=== PATIENT | male | born 1975 | race Caucasian/White ===

== ENCOUNTER 2019-08-09 17:37 | Outpatient (CLI) | payer SELFPAY ==
--- NOTE | 2019-08-21 12:11 | SLEEP_ITS ---
DATE OF STUDY: 08/09/2019 HISTORY: The patient is 43 years of age, 64 inches tall, weighs 325 pounds with a BMI of 55.8 kg/m2. This patient gives history of snoring, history of poor quality of sleep, significant daytime sleepiness, reports an Teague sleepiness scale score of 17/24. In addition to morbid obesity, other problems include diabetes that is insulin dependent, nasal congestion, depression, hypertension, and hyperlipidemia. He also has gastroesophageal reflux. This patient underwent an overnight polysomnographic evaluation with standard monitoring. A split-night protocol was used. CMS criteria were used for scoring hypopneas. In the diagnostic study, the sleep summary was as follows: Lights out was 7:15 p.m., lights on 11:26 p.m. Total recording time 251 minutes. Total sleep time 124 minutes with 49.4% sleep efficiency, which is poor. Sleep latency was 2.1 minutes and there was no REM sleep in the diagnostic study. SLEEP STAGES: The patient was awake for 127 minutes. Stage N1 was 17%, N2 83%, and there was absence of stage N3 and stage R sleep. BODY POSITION: The patient was supine 29.8%, non-supine 56.3%. RESPIRATORY EVENTS: Loud snoring was heard. The patient had a total of 4 apneas with index of 1.9. There were 216 hypopneas with index of 105.4, so combined apnea-hypopnea index of 106.4. Events were about equal frequencies in supine as well as in non-supine sleep. AROUSALS: The patient had frequent arousals due to respiratory events as well as spontaneous arousals were also noted. LEG MOVEMENT SUMMARY: There were no periodic limb movements noted. OXYGEN SATURATION: During diagnostic study, the mean saturation was 94%. Lowest saturation was 80%. 11.4 minutes of recording occurred with saturation of 88 or below, so mild intermittent hypoxia was encountered. EKG analysis revealed sinus tachycardia. The average heart rate was 110 beats per minute. Range was 57-139 beats per minute. Because of the severe nature of the obstructive sleep apnea identified in the diagnostic study, the patient was offered CPAP study. The patient used AirFit F-20 full face mask of medium size with heated humidification. TREATMENT SUMMARY: Sleep architecture, total recording time 281 minutes. Total sleep time 167 minutes with 59.5% sleep efficiency. Sleep onset was 6.3 minutes and REM latency was 63.5 minutes. SLEEP STAGES: The patient was awake for 114 minutes. Stage N1 was 8.1%, N2 55.5%, and stage R 36.4%. There were no stage N3. The abundant REM sleep recorded is consistent with improved sleep quality with positive airway pressure. BODY POSITION: The patient was supine 42.9% and non-supine 52.7%. RESPIRATORY EVENTS: During titration, the patient had 53 obstructive apneas along with 47 hypopneas with an apnea-hypopnea index of 50.9. Events were slightly more common during non-REM sleep with a non-REM index of 56.3 as compared to REM index of 41.3. Non-supine events interestingly were more common than supine events. OXYGEN SATURATION: During positive airway pressure titration, the patient's average saturation was 91.2%, lowest saturation was 64%. 35 minutes of record occurred with saturation of 88 or below, so hypoxia was definitely present. EKG analysis during positive airway pressure showed persistent tachycardia. Average heart rate of 104 beats per minute with the range of 84-125 beats per minute. POSTIVIE AIRWAY PRESSURE ANALYSIS: The patient was initially started on a CPAP. Starting at CPAP of 4 was titrated to a level of 4 cm. The patient continued to have many episodes of desaturation as well as hypopneic episodes and at that time, the patient complained of being uncomfortable started hyperventilating. The patient was
== END 2019-08-09 17:38 | disposition home or self-care (01) ==
DX: R06.83 Snoring (principal); G47.33 Obstructive sleep apnea (adult) (pediatric)
CPT/HCPCS: 99199

== ENCOUNTER 2019-08-13 16:00 | Observation (INO) | payer MEDICARE, MEDICAID, SELFPAY ==
--- NOTE | ~2019-08-13 | US_ITS ---
EXAMINATION: US venous doppler [facility] DATE: 08/16/2019 08:55 INDICATION: Calf tenderness. TECHNIQUE: Grayscale ultrasound images without and with compression and Doppler ultrasound images of the bilateral lower extremity veins were obtained. COMPARISON: None. FINDINGS: The visualized portions of right common femoral vein, profunda (deep) femoral vein, femoral vein, pop liteal vein, peroneal veins, posterior tibial veins, and greater saphenous vein outflow are patent. The visualized portions of left common femoral vein, profunda femoral vein, femoral vein, popliteal v ein, peroneal veins, posterior tibial veins, and greater saphenous vein outflow are patent. IMPRESSION: 1. No deep venous thrombosis. Reviewed, dictated and finalized at location A. MING FREIGHT CLERK
--- NOTE | ~2019-08-13 | CT_ITS ---
EXAMINATION:CT chest high resolution wo ri DATE: 08/16/2019 13:29 INDICATION: Diffuse lung disease. TECHNIQUE: Computed tomography (CT) of the chest was performed without intravenous contrast. Automate d exposure control and iterative reconstruction technique were employed. The dose-length product (DLP ) was 923.22 mGy-cm. COMPARISON: Chest CT 08/13/2019, CT abdomen and pelvis 08/01/2019 FINDINGS: There is mosaic attenuation in the lungs, likely small airways disease. There is mild atele ctasis bilaterally. No pleural effusion. The heart size is normal. No pericardial effusion. There are no pathologically enlarged lymph nodes. There is mild chronic anterior wedging of T10 and T11 verteb ral bodies. There is mild thoracic spondylosis. IMPRESSION: 1. Mosaic attenuation in the lungs, likely small airways disease. Reviewed, dictated and finalized at location A. ST FIRE MANAGEMENT OFFICER
--- NOTE | ~2019-08-13 | CT_ITS ---
EXAMINATION: CTA chest PE protocol DATE: 08/13/2019 18:03 DIGITAL SPECIALIST INDICATION: Shortness of breath. Elevated d-dimer. TECHNIQUE: Computed tomographic angiography (CTA) of the chest was performed with 100 mL Omnipaque-35 0 intravenous contrast. The dose-length product was 1155.32 mGy-cm. Maximum intensity projection 3D-r econstructions of the aorta and other arteries were constructed by the technologist on a separate wor kstation. Automated exposure control and iterative reconstruction technique were employed. COMPARISON: Chest x-ray dated 08/13/2019. FINDINGS: Study is significantly limited due to motion artifact. No large central pulmonary embolism. The segmental and subsegmental arteries are not well evaluated due to motion. Cardiomegaly. No signi ficant pleural or pericardial effusion. There is mediastinal lipomatosis. No thoracic lymphadenopathy . There is extensive groundglass opacification of both lungs with areas of interlobular septal thicke anne, likely related to edema, although superimposed pneumonia is not excluded. Mild lower thoracic w edge compression deformities, likely chronic. No acute osseous abnormality. IMPRESSION: 1. No large central pulmonary embolism. Study limited by motion for evaluation of smaller segmental a nd subsegmental pulmonary arteries. 2: Cardiomegaly with extensive groundglass opacification, likely reflecting edema. Superimposed pneu monia not excluded. Reviewed, dictated and finalized at location A. TAL SPECIALIST IMPRESSION: 1. No large central pulmonary embolism. Study limited by motion for evaluation of smaller segmental and subsegmental pulmonary arteries. 2: Cardiomegaly with extensive groundglass opacification, likely reflecting ed lyndon. Superimposed pneumonia not excluded.
--- NOTE | ~2019-08-13 | XR_ITS ---
XR chest 1V portable 08/13/2019 16:42 Indication: Shortness of breath Procedure: AP portable chest Comparison: 09/22/2012 Findings: Cardiomegaly with bilateral perihilar infiltrates. Small right pleural effusion. No pneumot horax. No acute osseous abnormality. Impression: 1: Bilateral perihilar infiltrates with mild peribronchial thickening, suspicious for edema. 2: Cardiomegaly. 3: Small right pleural effusion. Reviewed, dictated and finalized at location A. RNED GOODS SORTER Impression: 1: Bilateral perihilar infiltrates with mild peribronchial thickening, suspicio us for edema. 2: Cardiomegaly. 3: Small right pleural effusion.
[2019-08-13 16:15] VITALS: BP 169/94; PULSE 90; RESP 40; TEMP 36.7; O2SAT 93
--- NOTE | 2019-08-13 16:21 | ECG_ITS ---
Measurements Intervals [place] Rate: 101 P: 39 DC: 168 QRS: -9 QRSD: 94 T: 55 QT: 345 QTc: 448 Interpretive Statements SINUS TACHYCARDIA LOW QRS VOLTAGE IN PRECORDIAL LEADS POOR R WAVE PROGRESSION, ANTERIOR LEADS BASELINE ARTIFACT- I, III BORDERLINE ECG Electronically Signed On 08-14-2019 8:10:47 BOND RUNNER by Leoncio Vargas D.O.
--- NOTE | 2019-08-13 16:27 | ED.SOB ---
HPI - SOB/Dyspnea General Chief Complaint: Shortness of Breath/Dyspnea Stated Complaint: pain all over, trouble breathing Time Seen by Provider: 08/13/19 16:20 Source: patient and RN notes reviewed Mode of arrival: wheelchair History of Present Illness MD elicited complaint: shortness of breath Pertinent past history: diabetes and other ( hypertension sleep apnea) Onset (ago): day(s) ( 2 days) Context: other ( spontaneous) Timing: constant Severity: moderate Exacerbating factors: lying flat and exertion Relieving factors: oxygen and rest Known history of: diabetes and other ( sleep apnea) Associated symptoms: other ( denies chest pain. Denies fever. No abdominal pain. No nausea vomiting.) Treatment prior to arrival: none Related Data Home oxygen amount: none Home Medications Medication Instructions Recorded Confirmed albuterol sulfate 2 puff INHALATION TID PRN 08/13/19 08/13/19 aspirin 81 mg PO DAILY 08/13/19 08/13/19 atorvastatin 10 mg PO HS 08/13/19 08/13/19 furosemide 20 mg PO BID 08/13/19 08/13/19 insulin aspart U-100 [Novolog 20 unit SUBCUT TID 08/13/19 08/13/19 Flexpen U-100 Insulin] insulin glargine [Basaglar KwikPen 60 unit SUBCUT HS 08/13/19 08/13/19 U-100 Insulin] lisinopril 5 mg PO DAILY 08/13/19 08/13/19 metformin 1,000 mg PO BID 08/13/19 08/13/19 omega 2-fpc-mzq-fish oil [Fish Oil] 1 cap PO BID 08/13/19 08/13/19 pantoprazole 40 mg PO DAILY 08/13/19 08/13/19 sertraline 200 mg PO DAILY 08/13/19 08/13/19 Allergies Allergy/AdvReac Type Severity Reaction Status Date / Time NKDA Allergy Mild Uncoded 12/08/10 21:04 Review of Systems Review of Systems: All systems reviewed & are unremarkable except as noted in HPI and below Constitutional: Constitutional: Reports no additional constitutional complaints, Denies chills and Denies fever(s) Eyes: Eyes: Reports no additional eye complaints and Denies change in vision ENT: Denies dizziness, Denies epistaxis and Denies sore throat Cardiovascular: Cardiovascular: Reports no additional cardiovascular complaints, Denies chest pain and Denies radiating jaw, neck or arm pain Respiratory: Respiratory: Reports no additional respiratory complaints and Reports dyspnea Gastrointestinal: Gastrointestinal: Reports no additional gastrointestinal complaints, Denies abdominal pain, Denies diarrhea, Denies nausea and Denies vomiting Genitourinary: Genitourinary: Reports no additional male genitourinary complaints, Denies hematuria and Denies dysuria Musculoskeletal: Musculoskeletal: Reports no additional musculoskeletal complaints, Denies back pain and Denies muscle cramps Integumentary/Breasts: Skin/Breast: Reports system reviewed and no additional complaints, except as docu, Reports erythema and Denies rash Neurologic: Reports system reviewed and no additional complaints, except as documented, Reports as per HPI, Denies vertigo, Denies dizziness, Denies syncope, Denies focal weakness and Reports weakness Psychiatric: Psychiatric: Reports no additional psychiatric complaints, Denies anxiety and Denies depression Endocrine: Endocrine: Reports no additional endocrine complaints Comments: diabetes mellitus Hematologic/Lymphatic: Hematologic/Lymphatic: Reports no additional hematologic/lymphatic complaints, Denies easy bleeding and Denies easy bruising Allergic/Immunologic: Allergic/Immunologic: Reports no additional allergic/immunologic complaints, Denies throat swelling and Denies tongue swelling PMFSH Past Medical History Medical History (Updated 08/13/19 @ 17:16 by Sinan Swan MD) Diabetes mellitus Exogenous obesity Hypertension Surgical History Surgical History (Updated 08/13/19 @ 17:16 by Sinan Swan MD) No significant past surgical history Family History Family History (Updated 08/13/19 @ 17:17 by Sinan Swan MD) Mother , mother of CHF Heart disease Father , father of CHF No problems
[2019-08-13 16:53] LABS: Basophils Absolute Auto 0.06 K/mm3 (0.00-0.10); Eosinophils Absolute Auto 0.04 K/mm3 (0.02-0.50); Eosinophils Percent Auto 0.7 % (1.0-6.0); Hematocrit 33.3 % (40.0-54.0); Hemoglobin 10.6 g/dL (14.0-18.0); Immature Granulocyte Absolute 0.02 K/mm3 (0.00-0.00); Immature Granulocyte Percent A 0.3 % (0.0-0.0); Lymphocytes Absolute Auto 1.21 K/mm3 (1.10-4.50); Lymphocytes Percent Auto 20.5 % (18.0-42.0); Mean Corpuscular HGB Conc 31.8 g/dL (32.0-36.0); Mean Corpuscular Hemoglobin 27.5 pg (27.0-31.0); Mean Corpuscular Volume 86.5 fL (78.0-102.0); Mean Platelet Volume 9.4 fl (8.7-11.0); Monocytes Absolute Auto 0.49 K/mm3 (0.10-0.90); Monocytes Percent Auto 8.3 % (2.0-11.0); Neutrophils Absolute Auto 4.1 K/mm3 (1.7-7.2); Neutrophils Percent Auto 69.2 % (50.0-70.0); Platelet Count Result 381 K/mm3 (150-420); Red Blood Count 3.85 M/mm3 (4.70-6.10); Red Cell Distribution Width 13.7 % (11.6-14.4); White Blood Count 5.9 K/mm3 (4.8-10.8)
[2019-08-13 17:07] LABS: Partial Thromboplastin Time 26.9 SEC (22.3-31.6)
[2019-08-13 17:10] LABS: D Dimer 1.39 mg/L (0.19-0.50)
[2019-08-13 17:16] LABS: BNP 19.7 pg/mL (0-100)
[2019-08-13 17:19] LABS: Alanine Aminotransferase 35 U/L (16-63); Albumin Level 3.3 g/dL (3.4-5.0); Alkaline Phosphatase 219 U/L (46-116); Anion Gap 13.1 mmol/L (7-16); Aspartate Amino Transferase 26 U/L (15-37); Bilirubin,Total 0.2 mg/dL (0.00-1.00); Blood Urea Nitrogen 13 mg/dL (7-18); Calcium 8.5 mg/dL (8.5-10.1); Carbon Dioxide 27 mmol/L (21-32); Chloride 102 mmol/L (98-108); Creatine Kinase 169 U/L (39-308); Estimated CRCL calculation 114 ml/min; Estimated Glomerular Filt Rate > 60; Glucose 218 mg/dL (70-99); Osmolality Calculated 293 mOsm/kg (285-295); Potassium 4.1 mmol/L (3.5-5.1); Sodium 138 mmol/L (136-145); Total Protein 8.1 g/dL (6.4-8.2)
[2019-08-13 17:20] LABS: Troponin I < 0.02 ng/mL (0.00-0.056)
[2019-08-13 17:21] LABS: Magnesium 1.8 mg/dL (1.8-2.4); Salicylate 0.8 mg/dL (2.8-20.0); Thyroid Stimulating Hormone 8.36 uIU/mL (0.36-3.74)
[2019-08-13 17:26] LABS: Base Excess ABG 1.2 mmol/L (0-2); Device NASAL CANNULA; Modified Allen's Test Pass; Oxygen Content ABG 17.1 %vol (16.0-22.0); Oxygen Saturation ABG 97.7 % (95-97); Oxyhemoglobin 96.5 % (94-100); PCO2 ABG 42.3 mmHg (35-45); Site Drawn LEFT RADIAL; Total Hemoglobin 12.5 g/dL; pH ABG 7.41 (7.35-7.45)
[2019-08-13] MEDS: FUROSEMIDE INJ 40 MG/4 ML VIAL IV PUSH (17:27)
[2019-08-13 17:30] LABS: Lactic Acid 0.7 mmol/L (0.4-2.0)
[2019-08-13 17:32] LABS: Appearance Urine Clear (Clear); Bilirubin Urine Negative (Negative); Blood Urine 2+ (Negative); Color Urine Yellow (Yellow); Glucose Urine UA Trace (Negative); Ketones Urine Negative (Negative); Leukocyte Esterase Ur Negative LEU/UL (Negative); Nitrate Urine Negative (Negative); Protein Urine 2+ (Negative); Urobilinogen Urine 0.2 mg/dL (0.2-1.0)
[2019-08-13 17:38] LABS: Add Urine Microscopic? YES; Bacteria Urine 1+ /hpf; Squamous Epithelial Cell Urine Rare /hpf (Few); WBC Urine 0-3 /hpf (0-3)
[2019-08-13 17:51] LABS: Influenza Control Valid (Valid)
[2019-08-13 17:53] LABS: Erythrocyte Sedimentation Rate 42 mm/hr (0-15)
--- NOTE | 2019-08-13 18:12 | PC.NURSE ---
RN REQUESTING OBS BED FROM CJ MONROE RN. BED 209 PROVIDED. REGISTRATION NOTIFIED. AWAITING TUCK IN ORDERS BY ERP TO CALL REPORT TO ACCEPTING RN.
[2019-08-13 19:00] VITALS: BP 113/79; PULSE 96; RESP 20; O2SAT 100
[2019-08-13 19:34] VITALS: BMI 56.5
--- NOTE | 2019-08-13 19:56 | ADMGEN ---
This patient, Ronny Westbrook, was admitted to 2nd Floor Room 209-1. Patient/family oriented to hospital policies and general routines including ID bracelet, bed and alarms, visiting hours, pain management, procedures, bathroom and other care routines, personal items, smoking policy, room service/diet, and visiting hours. Valuables list has been completed. Information on how to activate the Rapid Response Team has been discussed. Patient/Family are encouraged to report perceived risks to care and to ask questions if they do not understand what they are told or what they should do.
[2019-08-13 20:00] VITALS: BP 113/79; PULSE 99; RESP 20; TEMP 36.4; O2SAT 99
[2019-08-13] MEDS: ATORVASTATIN 10 MG TABLET PO (20:52)
[2019-08-13 21:00] LABS: Glucose Point of Care 141 (65-105)
[2019-08-14] VITALS (9 sets, daily range): BP systolic 111–160; BP diastolic 62–74; PULSE 90–111; RESP 20–36; TEMP 35.8–36.9; O2SAT 95–97
[2019-08-14 05:29] LABS: Basophils Absolute Auto 0.05 K/mm3 (0.00-0.10); Basophils Percent Auto 0.9 % (0.0-1.0); Eosinophils Absolute Auto 0.05 K/mm3 (0.02-0.50); Eosinophils Percent Auto 0.9 % (1.0-6.0); Hematocrit 30.9 % (40.0-54.0); Hemoglobin 9.8 g/dL (14.0-18.0); Immature Granulocyte Absolute 0.02 K/mm3 (0.00-0.00); Immature Granulocyte Percent A 0.4 % (0.0-0.0); Lymphocytes Absolute Auto 1.42 K/mm3 (1.10-4.50); Lymphocytes Percent Auto 25.1 % (18.0-42.0); Mean Corpuscular HGB Conc 31.7 g/dL (32.0-36.0); Mean Corpuscular Hemoglobin 27.3 pg (27.0-31.0); Mean Corpuscular Volume 86.1 fL (78.0-102.0); Mean Platelet Volume 9.4 fl (8.7-11.0); Monocytes Absolute Auto 0.59 K/mm3 (0.10-0.90); Monocytes Percent Auto 10.4 % (2.0-11.0); Neutrophils Absolute Auto 3.5 K/mm3 (1.7-7.2); Neutrophils Percent Auto 62.3 % (50.0-70.0); Platelet Count Result 365 K/mm3 (150-420); Red Blood Count 3.59 M/mm3 (4.70-6.10); Red Cell Distribution Width 13.7 % (11.6-14.4); White Blood Count 5.7 K/mm3 (4.8-10.8)
[2019-08-14 05:50] LABS: Alanine Aminotransferase 29 U/L (16-63); Albumin Level 2.9 g/dL (3.4-5.0); Alkaline Phosphatase 173 U/L (46-116); Anion Gap 12.1 mmol/L (7-16); Aspartate Amino Transferase 22 U/L (15-37); Bilirubin,Total 0.3 mg/dL (0.00-1.00); Blood Urea Nitrogen 15 mg/dL (7-18); Calcium 8.5 mg/dL (8.5-10.1); Carbon Dioxide 28 mmol/L (21-32); Chloride 105 mmol/L (98-108); Estimated CRCL calculation 118 ml/min; Estimated Glomerular Filt Rate > 60; Glucose 141 mg/dL (70-99); Osmolality Calculated 294 mOsm/kg (285-295); Potassium 4.1 mmol/L (3.5-5.1); Sodium 141 mmol/L (136-145); Total Protein 7.4 g/dL (6.4-8.2)
[2019-08-14 05:53] LABS: Glucose Point of Care 140 (65-105)
--- NOTE | 2019-08-14 09:26 | PM.IMHP ---
H&P: HPI History of Present Illness Chief complaint: pain all over, trouble breathing Narrative: Ronny Westbrook is a 43 year old male admitted with worsening shortness of breath, non-productive cough, tender/painful lower abdomen, and tender/painful bilateral lower extremities. He was diagnosed with Foot Drop, CHF, morbid obesity, DM II, and Cellulitis. He has been using a rollator (walker with a seat) at home for ambulation due to his painful knees and morbid obesity. He does not wear compression stockings and has no abdominal surgery history. He lives independently in his own apartment. He does NOT have an Roll Reclaimer or Waybill Clerk or Nursery Rn - he did have a Vascular Surgeon Consultation AT the [facility] office. Recent Medical History: On , he has also been to see Vascular Surgeon Dr. Len Oscar at [facility] due to his abnormal ABIs, leg pain with standing but mostly with walking, and BLE edema. He doubted significant arterial disease, but felt it was from longstanding history of uncontrolled DM. Recommended compression stockings daily. On2018 Cellulits of left lower leg treated with Keflex 500mg TID for 10 days by his PCP office and the cellulitis resolved/leg improved. Then on , he went back to his PCP SENG Covarrubias complaining of wheezing/dyspnea/abdominal swelling, who noted his lung base opacities on the CT abdomen and ordered a Chest CT, labs, and a Sleep Study on . He was improving due to his Lasix (felt he has lost 20 lbs.), but still had BLE 1+ pitting edema, and the patient wanted to change lasix from BID to TID. Review of Systems Review of Systems: All systems reviewed & are unremarkable except as noted in HPI and below Constitutional: Constitutional: Reports as per HPI, Reports no additional constitutional complaints, Reports body ache(s), Denies chills, Reports difficulty sleeping (due to cough), Denies fever(s), Denies night sweats and Reports weakness Eyes: Eyes: Reports as per HPI, Reports no additional eye complaints and Denies change in vision ENT: Reports as per HPI, Reports hearing normal, Denies vertigo, Denies dizziness, Denies epistaxis, Denies nasal congestion, Denies nasal discharge, Denies sore throat, Denies throat swelling and Denies tongue swelling Cardiovascular: Cardiovascular: Reports as per HPI, Reports no additional cardiovascular complaints, Denies chest pain, Denies diaphoresis, Denies syncope, Reports pedal edema, Reports leg edema, Denies lightheadedness, Denies radiating jaw, neck or arm pain, Denies palpitations and Reports dyspnea Respiratory: Respiratory: Reports as per HPI, Reports no additional respiratory complaints, Reports chest congestion, Reports cough, Reports dyspnea, Reports dyspnea on exertion and Reports wheezing Gastrointestinal: Gastrointestinal: Reports as per HPI, Reports no additional gastrointestinal complaints, Denies abdominal pain, Denies bloating, Denies constipation (reports a BM yesterda), Denies diarrhea, Denies nausea and Denies vomiting Genitourinary: Genitourinary: Reports no additional male genitourinary complaints, Reports as per HPI, Denies hematuria and Denies dysuria Musculoskeletal: Musculoskeletal: Reports no additional musculoskeletal complaints, Reports as per HPI, Denies back pain and Denies muscle cramps Integumentary/Breasts: Skin/Breast: Reports system reviewed and no additional complaints, except as docu, Reports as per HPI, Reports erythema and Denies rash Neurologic: Reports system reviewed and no additional complaints, except as documented, Reports as per HPI, Denies Abnormal speech present, Denies confusion, Denies vertigo, Denies dizziness, Denies syncope, Denies headache(s), Denies focal weakness, Denies numbness and Reports weakness Psychiatric: Psychiatric: Reports no additional psychiatric complaints, Reports as per HPI, Denies anxiety, Denies confusion, Denies depr
[2019-08-14] MEDS: ENOXAPARIN 40 MG/0.4 ML SYRINGE SUB-Q (09:27)
[2019-08-14] MEDS: FUROSEMIDE INJ 40 MG/4 ML VIAL IV PUSH ×2 (09:28→17:03)
[2019-08-14] MEDS: DOCUSATE SODIUM 100 MG CAPSULE PO ×2 (09:29→17:03)
[2019-08-14] MEDS: ASPIRIN 81 MG CHEWABLE TABLET PO (09:29)
[2019-08-14] MEDS: PANTOPRAZOLE 40 MG TABLET PO (09:29)
[2019-08-14] MEDS: SERTRALINE HCL 50 MG TABLET 200 MG PO (09:29)
[2019-08-14] MEDS: OMEGA 3 POLYUNSAT FATTY ACIDS 1 GM CAP PO ×2 (09:29→17:04)
[2019-08-14] MEDS: FUROSEMIDE 20 MG TABLET PO ×2 (09:29→17:03)
[2019-08-14] MEDS: lisinopriL 5 MG TABLET PO (09:29)
[2019-08-14] MEDS: metFORMIN HCL 500 MG TABLET 1000 MG PO ×2 (09:29→17:03)
[2019-08-14] MEDS: LEVOTHYROXINE SODIUM 50 MCG TABLET PO (09:33)
[2019-08-14] MEDS: LORATADINE 10 MG TABLET PO (09:33)
[2019-08-14 11:27] LABS: Hemoglobin A1C 11.6 % (<5.7)
[2019-08-14 11:28] LABS: Iron 26 ug/dL (65-175); Percent Iron Saturation 10 % (12-57)
[2019-08-14 11:36] LABS: Glucose Point of Care 163 (65-105)
[2019-08-14] MEDS: CLINDAMYCIN 600 MG/D5W 50 ML 600 MG/50 ML PIGGYBACK 100 MG IVPB ×2 (11:42→20:15)
[2019-08-14 16:33] LABS: Glucose Point of Care 86 (65-105)
[2019-08-14 18:33] LABS: Glucose Point of Care 190 (65-105)
[2019-08-14] MEDS: ATORVASTATIN 10 MG TABLET PO (20:21)
[2019-08-14 20:29] LABS: Glucose Point of Care 145 (65-105)
--- NOTE | 2019-08-14 23:15 | PC.NURSE ---
Patient appears to be sleeping by the rise and fall of his chest. Respirations even and unlabored. O2 on @ 2 lpm/nc. No distress noted. Call light in reach.
[2019-08-15] VITALS (8 sets, daily range): BP systolic 102–131; BP diastolic 51–71; PULSE 88–96; RESP 18–20; TEMP 36.1–36.6; O2SAT 94–99
[2019-08-15] MEDS: CLINDAMYCIN 600 MG/D5W 50 ML 600 MG/50 ML PIGGYBACK 100 MG IVPB ×3 (03:43→20:28)
[2019-08-15 05:23] LABS: Hematocrit 31.2 % (40.0-54.0); Hemoglobin 9.6 g/dL (14.0-18.0); Mean Corpuscular HGB Conc 30.8 g/dL (32.0-36.0); Mean Corpuscular Hemoglobin 26.8 pg (27.0-31.0); Mean Corpuscular Volume 87.2 fL (78.0-102.0); Mean Platelet Volume 9.9 fl (8.7-11.0); Platelet Count Result 369 K/mm3 (150-420); Red Blood Count 3.58 M/mm3 (4.70-6.10); Red Cell Distribution Width 13.7 % (11.6-14.4); White Blood Count 5.1 K/mm3 (4.8-10.8)
[2019-08-15] MEDS: LEVOTHYROXINE SODIUM 50 MCG TABLET PO (05:38)
[2019-08-15 07:00] LABS: Cholesterol 104 mg/dL (0-200); HDL Direct 33 mg/dL (40-60); LDL Cholesterol Calculated 63 mg/dL (<130); Triglycerides 42 mg/dL (0-150)
[2019-08-15 07:15] LABS: Glucose Point of Care 237 (65-105)
[2019-08-15 07:22] LABS: Anion Gap 12.1 mmol/L (7-16); Blood Urea Nitrogen 19 mg/dL (7-18); Carbon Dioxide 27 mmol/L (21-32); Chloride 103 mmol/L (98-108); Estimated CRCL calculation 111 ml/min; Estimated Glomerular Filt Rate > 60; Potassium 4.1 mmol/L (3.5-5.1); Sodium 138 mmol/L (136-145)
[2019-08-15 07:23] LABS: Alanine Aminotransferase 24 U/L (16-63); Albumin Level 2.7 g/dL (3.4-5.0); Alkaline Phosphatase 150 U/L (46-116); Aspartate Amino Transferase 18 U/L (15-37); Bilirubin,Total 0.4 mg/dL (0.00-1.00); Calcium 7.8 mg/dL (8.5-10.1); Glucose 118 mg/dL (70-99); Osmolality Calculated 289 mOsm/kg (285-295); Total Protein 7.1 g/dL (6.4-8.2)
[2019-08-15] MEDS: DOCUSATE SODIUM 100 MG CAPSULE PO ×2 (08:06→16:46)
[2019-08-15] MEDS: SERTRALINE HCL 50 MG TABLET 200 MG PO (08:06)
[2019-08-15] MEDS: ASPIRIN 81 MG CHEWABLE TABLET PO (08:06)
[2019-08-15] MEDS: metFORMIN HCL 500 MG TABLET 1000 MG PO ×2 (08:07→16:46)
[2019-08-15] MEDS: lisinopriL 5 MG TABLET PO (08:07)
[2019-08-15] MEDS: PANTOPRAZOLE 40 MG TABLET PO (08:07)
[2019-08-15] MEDS: OMEGA 3 POLYUNSAT FATTY ACIDS 1 GM CAP PO ×2 (08:07→16:47)
[2019-08-15] MEDS: LORATADINE 10 MG TABLET PO (08:07)
[2019-08-15] MEDS: ENOXAPARIN 40 MG/0.4 ML SYRINGE SUB-Q (08:08)
[2019-08-15] MEDS: FUROSEMIDE INJ 40 MG/4 ML VIAL IV PUSH ×2 (08:08→16:46)
[2019-08-15] MEDS: FUROSEMIDE 20 MG TABLET PO ×2 (08:18→16:46)
--- NOTE | 2019-08-15 09:47 | PC.NURSE ---
0730 Patient sleeping with oxygen on at 3l/min.n.c. Noted patient does have snoring and periods of apnea when sleeping. Patient reports getting a cpap machine soon r/t to this. When awake no s/sx of dyspnea noted or reported. O2 sat with O2 on 96%. Took O2 off and waiting awhile. Patient denied shortness of breath. No s/sx of respiratory difficulty noted. O2 sat 94%. Leaving o2 off for now. 0800 Up to chair without respiratory difficulty. O2 remains off.
[2019-08-15 11:26] LABS: Glucose Point of Care 126 (65-105)
--- NOTE | 2019-08-15 11:30 | PC.NURSE ---
1100 Patient in bed watching TV. Reports the doctor and SAP PORTAL ARCHITECT woke him up. Noted O2 back on o2 2l/minn.c.. When ask patient, he reported the SAP PORTAL ARCHITECT and doctor put him back on it. O2 sat 98%. on oxygen. Left as is for now.
--- NOTE | 2019-08-15 13:53 | PC.NURSE ---
No injuries this shift. Remains on fluid restriction (was within means for day shift). Good amount of urine output from diuretics. No respiratory distress noted or reported. O2 remains on at 2l/min.n.c. per CADDY MASTER. Weight down to 146.2 kg from 149. Edema to lower feet/ankles better.
--- NOTE | 2019-08-15 16:10 | PM.IMPN ---
Progress Note: A&P Assessment and Plan (1) Abdominal wall cellulitis: Onset Date: ~08/13/19 <Mellissa Craig NP - Last Filed: 08/15/19 21:36> Code(s): L03.311 - Cellulitis of abdominal wall <Mellissa Craig NP - Last Filed: 08/15/19 21:36> Status: Acute <Mellissa Craig NP - Last Filed: 08/15/19 21:36> Assessment and Plan: as well as EDEMA of abdominal wall. WBC = 5.9 and 5.7 on labwork, no chills or fevers. Blood cultures preliminary x 2 show no growth. Cough is not productive and no lung crackles - so no Sputum cx ordered. Incentive spirometer Inspiratory volumes are reaching 1500ml LFTs wnl. Alk Phos and CKMB and CRP are all elevated. Patient stated that abdomen was also painful and swollen at the same time that the leg was painful and swollen and treated successfully with Keflex, but the abdomen did not improve or resolve in it's tenderness or reddened state - photo documented in chart. Treating with IV Clindamyacin 600mg Q8 hours and Diuresis IMPROVING. <Mellissa Craig NP - Last Filed: 08/15/19 21:36> (2) Morbid obesity with BMI of 50.0-59.9, adult: Onset Date: Unknown <Mellissa Craig NP - Last Filed: 08/15/19 21:36> Code(s): E66.01 - Morbid (severe) obesity due to excess calories; Z68.43 - Body mass index (BMI) 50.0-59.9, adult <Mellissa Craig NP - Last Filed: 08/15/19 21:36> Status: Acute <Mellissa Craig NP - Last Filed: 08/15/19 21:36> Assessment and Plan: CHRONIC, Will take DIET, REHAB therapy/exercise, and DIABETIC CONTROL to improve. Needs Frequent Reminders and further Patient education regarding: Portion control and Carb control Glucose checks 3-4 times a day and this needs to be continued at home. Increase patient daily activity level. Ordered PT/OT. elevated A1C 11.6 last glucose levels were 126, 99, 117 WNL. Continued home Metformin 1000ml BID dosing. <Mellissa Craig NP - Last Filed: 08/15/19 21:36> (3) Edema of abdominal wall: Onset Date: 08/13/19 <Mellissa Craig NP - Last Filed: 08/15/19 21:36> Code(s): R60.0 - Localized edema <Mellissa Craig NP - Last Filed: 08/15/19 21:36> Status: Acute <Mellissa Craig NP - Last Filed: 08/15/19 21:36> Assessment and Plan: as well as Celulitis of Abdominal Wall, see that above. Hardened lower abdomen and pannus with 3-4+ pitting edema and ascites = [place] pitting edema of lower abdomen (Peau d'orange). Abdomen with Swelling/some redness/Warmth/Tenderness with Peau d'orange appearance. Differential Diagnoses include: Obesity with Cellulite, Lymphedema, Cellulitis, Chronic Vascular Insuffiency, Continue diuresis with lasix. Monitor I/Os Daily weights Exercise/ weight loss Documented by photo in chart. <Mellissa Craig NP - Last Filed: 08/15/19 21:36> (4) Anemia: Onset Date: Unknown <Mellissa Craig NP - Last Filed: 08/15/19 21:36> Code(s): D64.9 - Anemia, unspecified <Mellissa Craig NP - Last Filed: 08/15/19 21:36> Status: Acute <Mellissa Craig NP - Last Filed: 08/15/19 21:36> Assessment and Plan: STABLE and TREATED. started on daily iron 324 mg Ferrous Sulfate due to low iron and iron saturation on the low iron panel. Started on Vitamin C to aide with iron absorption. started on Protein supplements between meals 1 L Fluid Restriction. <Mellissa Craig NP - Last Filed: 08/15/19 21:36> (5) Elevated d-dimer: Onset Date: ~08/13/19 <Mellissa Craig NP - Last Filed: 08/15/19 21:36> Code(s): R79.89 - Other specified abnormal findings of blood chemistry <Mellissa Craig NP - Last Filed: 08/15/19 21:36> Status: Acute <Mellissa Craig, FILLING MACHINE OPERATOR - Last Filed: 08/15/19 21:36> Assessment and Plan: Elevated D-Dimer 1.39 with SOB. Chest PE protocol was completed and no PE evident. ABG was wnl. checking fasting lipid escalante
[2019-08-15 17:14] LABS: Glucose Point of Care 99 (65-105)
--- NOTE | 2019-08-15 18:15 | PM.EVENT ---
Event Note Event Note: For this patient encounter, I reviewed the TRAILER ASSEMBLER or PA documentation, treatment plan, and medical decision making; and I had [id number] time with this patient. Peau d'orange periumbilical texture remains, very faint pink color with minimal discomfort when palpated (much improved from what's reported from yesterday). Uses trapeze to get up. Breath sounds decreased but no wheezes or rales. 2+ pretibial edema which pt. states is markedly improved from what it has been.
[2019-08-15] MEDS: ATORVASTATIN 10 MG TABLET PO (20:28)
[2019-08-15 21:06] LABS: Glucose Point of Care 117 (65-105)
--- NOTE | 2019-08-15 23:43 | WPDANESACPN ---
Arterial Cath Proc Note Consent: I have discussed with the patient/family/POA, the non-emergent placement of an arterial catheter, including its clinical necessity/indication and associated potential risks and complications. The patient/family/POA and/or understand(s) and acknowledge(s) the need to proceed with the arterial catheter insertion as an important element of the patient's clinical management. Given emergent patient conditions, temporal constraints may have precluded informed consent. Time-Out: A pre-procedural Time-Out was completed immediately before starting the procedure and confirmed: Patient Identification, Site, Procedure, Patient Position and the Availability of Requisite Equipment. Procedure Note Complications: None immediately noted/suspected.
[2019-08-16] VITALS (7 sets, daily range): BP systolic 112–116; BP diastolic 54–63; PULSE 90–106; RESP 18–20; TEMP 35.8–36.6; O2SAT 93–98
--- NOTE | 2019-08-16 01:48 | PC.NURSE ---
Telemetry SR with artifact. Pt denies chest pain. Urine color in pink.
[2019-08-16] MEDS: CLINDAMYCIN 600 MG/D5W 50 ML 600 MG/50 ML PIGGYBACK 100 MG IVPB ×2 (04:03→12:01)
--- NOTE | 2019-08-16 04:27 | PC.NURSE ---
Telemetry SR, artifact. Denied chest pain.
[2019-08-16 05:31] LABS: Hematocrit 30.7 % (40.0-54.0); Hemoglobin 9.9 g/dL (14.0-18.0); Mean Corpuscular HGB Conc 32.2 g/dL (32.0-36.0); Mean Corpuscular Hemoglobin 27.8 pg (27.0-31.0); Mean Corpuscular Volume 86.2 fL (78.0-102.0); Platelet Count Result 367 K/mm3 (150-420); Red Blood Count 3.56 M/mm3 (4.70-6.10); Red Cell Distribution Width 13.5 % (11.6-14.4); White Blood Count 5.8 K/mm3 (4.8-10.8)
--- NOTE | 2019-08-16 05:40 | PC.NURSE ---
Urine is lt cranberry colored.
[2019-08-16 05:44] LABS: Blood Urea Nitrogen 24 mg/dL (7-18); Calcium 8.2 mg/dL (8.5-10.1); Carbon Dioxide 27 mmol/L (21-32); Estimated CRCL calculation 98 ml/min; Estimated Glomerular Filt Rate > 60; Glucose 191 mg/dL (70-99); Magnesium 1.6 mg/dL (1.8-2.4)
--- NOTE | 2019-08-16 05:54 | PC.NURSE ---
Pt has continent lt brown flaky stool x2 this shift.
[2019-08-16] MEDS: LEVOTHYROXINE SODIUM 50 MCG TABLET PO (05:56)
[2019-08-16 06:58] LABS: Anion Gap 14.3 mmol/L (7-16); Chloride 104 mmol/L (98-108); Osmolality Calculated 301 mOsm/kg (285-295); Potassium 4.3 mmol/L (3.5-5.1); Sodium 141 mmol/L (136-145)
--- NOTE | 2019-08-16 08:00 | PC.NURSE ---
SBA and use of walker to chair for breakfast, tolerated well
[2019-08-16] MEDS: OMEGA 3 POLYUNSAT FATTY ACIDS 1 GM CAP PO (09:13)
[2019-08-16] MEDS: lisinopriL 5 MG TABLET PO (09:13)
[2019-08-16] MEDS: SERTRALINE HCL 50 MG TABLET 200 MG PO (09:13)
[2019-08-16] MEDS: PANTOPRAZOLE 40 MG TABLET PO (09:14)
[2019-08-16] MEDS: LORATADINE 10 MG TABLET PO (09:14)
[2019-08-16] MEDS: ASCORBIC ACID 500 MG TABLET PO (09:14)
[2019-08-16] MEDS: DOCUSATE SODIUM 100 MG CAPSULE PO (09:14)
[2019-08-16] MEDS: FUROSEMIDE 20 MG TABLET PO (09:14)
[2019-08-16] MEDS: FERROUS SULFATE 324 MG TABLET PO (09:14)
[2019-08-16] MEDS: ENOXAPARIN 40 MG/0.4 ML SYRINGE SUB-Q (09:14)
[2019-08-16] MEDS: ASPIRIN 81 MG CHEWABLE TABLET PO (09:14)
[2019-08-16] MEDS: metFORMIN HCL 500 MG TABLET 1000 MG PO (09:14)
--- NOTE | 2019-08-16 10:01 | PC.NURSE ---
Resting in bed, would like to go home today, denies needs, room air saturation 95%
--- NOTE | 2019-08-16 10:17 | PC.NURSE ---
Up to bathroom to void, tolerated well, using walker without problems, gait slow steady, states is feeling much better
[2019-08-16 11:23] LABS: Glucose Point of Care 291 (65-105)
--- NOTE | 2019-08-16 12:47 | PC.NURSE ---
patient got self up from chair to bathroom and back to chair, able to void on own post cath removal, small clot noted, pink tinge urine noted
[2019-08-16] MEDS: CLINDAMYCIN HCL 150 MG CAP 600 MG PO (12:54)
--- NOTE | 2019-08-16 14:17 | PC.NURSE ---
Resting in bed, denies needs, no change in telemetry, no pain, no sob, voiding well, clots occassional and pink tinged
--- NOTE | 2019-08-16 14:54 | PM.DS ---
DS: Diagnosis Admitting Diagnosis Admitting Diagnosis: Cellulitis of abdominal wall Discharge Diagnosis (1) Abdominal wall cellulitis: Onset Date: ~08/13/19 Code(s): L03.311 - Cellulitis of abdominal wall Status: Acute Assessment and Plan: improved -WBC = within normal limits -Blood cultures preliminary with no growth - continue Incentive spirometer on discharge -Patient stated that abdomen was also painful and swollen at the same time that the leg was painful and swollen and treated successfully with Keflex, but the abdomen did not improve or resolve in it's tenderness or reddened state - photo documented in chart. - patient discharged on clindamycin. (2) Morbid obesity with BMI of 50.0-59.9, adult: Onset Date: Unknown Code(s): E66.01 - Morbid (severe) obesity due to excess calories; Z68.43 - Body mass index (BMI) 50.0-59.9, adult Status: Acute Assessment and Plan: - patient educated on healthy lifestyle and diet. - will follow with primary care physician and possible consult to data solutions architect. (3) Edema of abdominal wall: Onset Date: 08/13/19 Code(s): R60.0 - Localized edema Status: Acute Assessment and Plan: -improved on discharge - patient's Lasix increased to 40 mg b.i.d. on discharge - will follow up with primary care physician (4) Anemia: Onset Date: Unknown Code(s): D64.9 - Anemia, unspecified Status: Acute Assessment and Plan: -STABLE -continuedaily iron 324 mg Ferrous Sulfate - continueVitamin C to aide with iron absorption. (5) Elevated d-dimer: Onset Date: ~08/13/19 Code(s): R79.89 - Other specified abnormal findings of blood chemistry Status: Acute Assessment and Plan: -Elevated D-Dimer 1.39 with SOB. -Chest PE protocol was completed and no PE evident. -Doppler negative for DVTs (6) Hyperglycemia: Onset Date: ~08/13/19 Code(s): R73.9 - Hyperglycemia, unspecified Status: Acute Assessment and Plan: -DUE to Uncontrolled Type II Diabetes. - continue diabetic diet - A1C 11.6. - continue Home meds: aspart 20 units TID, Metformin 1000 mg BID. - follow-up with primary care physician possible diabetic medication adjustment. (7) Pneumonitis: Onset Date: ~08/13/19 Code(s): J18.9 - Pneumonia, unspecified organism Status: Acute Assessment and Plan: - blood culture without growth. - wbc wnl (8) Pulmonary edema: Onset Date: ~08/13/19 Code(s): J81.1 - Chronic pulmonary edema Status: Acute Assessment and Plan: - secondary to uncompensated congestive heart failure. -Patient reported drinking 2 gallons of water daily while at home. patient educated on fluid restriction at home -patient Lasix increased to 40 mg b.i.d. - patient instructed to get referral to [facility] from primary care physician (9) Foot drop, bilateral: Code(s): M21.371 - Foot drop, right foot; M21.372 - Foot drop, left foot Status: Acute Assessment and Plan: -Instructed patient foot ROM exercises that he is do complete every hour. -Continue to use the Rollator or 2 wheeled walker at home for safety. - follow-up with specialist. (10) Hypothyroidism: Code(s): E03.9 - Hypothyroidism, unspecified Status: Acute Assessment and Plan: -TSH 5.72 on 07/13/19 and TSH 8.36 on 08/13/19. - 50mg Levothyroxine today, will need to F/U with PCP for TSH recheck in 6 weeks. DS: Summary Time Spent with Patient Time attestation: Total time spent providing and/or coordinating discharge services: Exam Const: General: comfortable, no acute distress ( moderate distress), alert and ill appearing; No in distress, confused or uncomfortable Nutritional Appearance: obese Orientation/consciousness: oriented x3 and No confused HENMT: Ears: EAC's normal and TM abnormal ( bilater
--- NOTE | 2019-08-16 15:48 | PC.NURSE ---
discharge paperwork printed, awaiting friend to pick him up at 1600, pt cannot read/write and so friend will help him sign
[2019-08-16 19:04] LABS: Vitamin D 25 Hydroxy 16 ng/mL (30-100)
--- NOTE | 2019-08-16 22:03 | PM.EVENT ---
Event Note Event Note: Mr. Westbrook asking about going home today. He states that his breathing is much better and tolerated exercise yesterday. Edema has improved. erythema on pannus is improved and there is no warmth. Few bilateral basilar rales. Will discharge him on oral diuretics and fluid restriction. I have examined the patient and reviewed the chart. I discussed the patient's care with [place] APN and agree with her assessment and plan.
--- NOTE | 2019-08-17 14:02 | PC.NURSE ---
Discharge Call Back [phone] Left message with Yazmin TERRELL. unable to contact.
[2019-08-28 01:46] LABS: Glucose Point of Care 221 (65-105)
== END 2019-08-16 16:30 | disposition home or self-care (01) ==
LOC: CHSED 16:30 → CHS2ND 18:13
PROVIDERS: Nurse Practitioner; Admitting Provider Surgery; Emergency Provider Surgery; PCP Physician Assistant; Visit Provider Surgery
DX: L03.311 Cellulitis of abdominal wall (principal); I11.0 Hypertensive heart disease with heart failure; I50.9 Heart failure, unspecified; J18.9 Pneumonia, unspecified organism; E66.01 Morbid (severe) obesity due to excess calories; M21.372 Foot drop, left foot; M21.371 Foot drop, right foot; H53.009 Unspecified amblyopia, unspecified eye; E78.5 Hyperlipidemia, unspecified; R79.89 Other specified abnormal findings of blood chemistry; E11.65 Type 2 diabetes mellitus with hyperglycemia; G47.33 Obstructive sleep apnea (adult) (pediatric); E03.9 Hypothyroidism, unspecified; D64.9 Anemia, unspecified; Z68.43 Body mass index [BMI] 50.0-59.9, adult; Z79.899 Other long term (current) drug therapy
CPT/HCPCS: 36415; 36600; 71045; 71250; 71275; 80048; 80053; 80061; 80307; 81001; 82306; 82550; 82553; 82805; 83036; 83540; 83550; 83605; 83735; 83880; 84443; 84484; 85025; 85027; 85380; 85652; 85730; 86140; 87040; 87086; 87804; 88321; 93005; 93970; 94618; 96365; 96366; 96372; 96374; 96375; 96376; 97161; 97165; 99284; 99285; A9270; G0378; J1650; J1815; J1940; Q9965

== ENCOUNTER 2019-09-19 09:53 | Emergency (ER) | payer MEDICARE, MEDICAID, SELFPAY ==
--- NOTE | ~2019-09-19 | CT_ITS ---
EXAMINATION: CT abdomen pelvis wo con EXAM DATE: 09/19/2019 12:10 INDICATION: Left flank pain, hematuria. History kidney stones. TECHNIQUE: Spiral CT of the abdomen and pelvis was performed without contrast. Axial, coronal and sag ittal images were reviewed. The dose-length product (DLP) for this examination was 1369.62 mGy-cm. The exposure was tailored according to patient size (auto mA exposure control), and iterative reconst ruction (ASIR) was used as additional dose reduction technique. Comparison is made to prior examinati on from 08/01/2019. FINDINGS: There is no nephrolithiasis or hydronephrosis. The prostate is unremarkable. The bladder is unremarkable. The liver, spleen, adrenal glands and pancreas are unremarkable. Gallbladder is u nremarkable. No biliary obstruction. There is no retroperitoneal or pelvic lymphadenopathy. The appendix is normal. The stomach and small bowel are unremarkable. There is moderate amount of c olonic stool. No free intraperitoneal gas. The heart is normal in size. There are no pericardial or pleural effusions. The lung bases are unremarkable. There are no osteoblastic or osteolytic les ions identified. There is chronic bilateral L5 spondylolysis with 8 mm anterolisthesis L5 on S1 and moderate to severe disc disease at this level. Small umbilical fat-containing hernia. IMPRESSION: 1. No nephrolithiasis, hydronephrosis or acute intra-abdominal findings. 2. Moderate amount of colonic stool. 3. Chronic L5 spondylolysis, grade 2 anterolisthesis. Reviewed, dictated and finalized at location B. PHONE RECORDER
[2019-09-19 10:16] VITALS: BP 134/72; PULSE 105; RESP 20; TEMP 36.8; O2SAT 96
--- NOTE | 2019-09-19 10:31 | ED.BACK ---
HPI - Back Pain/Injury General Chief Complaint: Back Pain/Injury Stated Complaint: headache throwing up Time Seen by Provider: 09/19/19 10:31 Source: patient Mode of arrival: ambulatory Limitations: no limitations History of Present Illness HPI Narrative: 43-year-old man with a history of acute renal failure and urolithiasis comes in today complaining of 2 days of left flank pain and vomiting. He states that he has had no fever, dysuria, hematuria or injury. He states the last time he felt this discomfort he had acute renal failure. MD elicited complaint: back pain Pertinent past history: kidney stones Onset (ago): day(s) (2) Timing: constant Severity: moderate Similar Symptoms Previously: Yes Quality: sharp Location: lumbar spine and left flank Radiation: none Relieving factors: none Context: history of kidney stones Work related injury: No Related Data Home Medications Medication Instructions Recorded Confirmed Basaglar KwikPen U-100 Insulin 60 unit SUBCUT HS 08/13/19 09/19/19 albuterol sulfate 2 puff INHALATION TID PRN 08/13/19 09/19/19 aspirin 81 mg PO DAILY 08/13/19 09/19/19 atorvastatin 10 mg PO HS 08/13/19 09/19/19 insulin aspart U-100 [Novolog 20 unit SUBCUT TID 08/13/19 09/19/19 Flexpen U-100 Insulin] lisinopril 5 mg PO DAILY 08/13/19 09/19/19 metformin 1,000 mg PO BID 08/13/19 09/19/19 omega 7-gie-zhv-fish oil [Fish Oil] 1 cap PO BID 08/13/19 09/19/19 pantoprazole 40 mg PO DAILY 08/13/19 09/19/19 sertraline 200 mg PO DAILY 08/13/19 09/19/19 furosemide 40 mg PO BID 09/19/19 09/19/19 levothyroxine 50 mcg PO DAILY 09/19/19 09/19/19 Allergies Allergy/AdvReac Type Severity Reaction Status Date / Time NKDA Allergy Mild Uncoded 12/08/10 21:04 Review of Systems Constitutional: Constitutional: Denies chills, Denies fever(s) and Denies weakness Eyes: Eyes: Denies change in vision and Denies photophobia ENT: Denies dysphagia, Denies nasal congestion and Denies sore throat Cardiovascular: Cardiovascular: Denies chest pain and Denies radiating jaw, neck or arm pain Respiratory: Respiratory: Reports cough ( Nonproductive.), Denies dyspnea and Denies wheezing Gastrointestinal: Gastrointestinal: Denies abdominal pain and Denies nausea Genitourinary: Genitourinary: Denies hematuria, Denies oliguria, Denies dysuria and Denies urinary frequency Musculoskeletal: Musculoskeletal: Reports as per HPI, Denies arthralgias, Denies joint swelling and Denies muscle cramps Integumentary/Breasts: Skin/Breast: Denies pruritus, Denies erythema and Denies rash Neurologic: Denies vertigo, Denies dizziness, Denies syncope, Denies focal weakness and Denies numbness Psychiatric: Psychiatric: Denies anxiety Endocrine: Endocrine: Denies polydipsia and Denies polyuria Hematologic/Lymphatic: Hematologic/Lymphatic: Denies easy bleeding and Denies easy bruising Allergic/Immunologic: Allergic/Immunologic: Denies lip swelling and Denies wheezing PMFSH Past Medical History Medical History (Updated 09/19/19 @ 12:48 by Emory Yates MD) Amblyopia Anemia (Unknown) Bilateral knee pain Depression Diabetes mellitus Exogenous obesity Hyperlipidemia Hypertension Morbid obesity with BMI of 50.0-59.9, adult (Unknown) Surgical History Surgical History (Updated 09/19/19 @ 11:14 by Emory Yates MD) H/O eye surgery Hx of tonsillectomy No significant past surgical history Family History Family History Mother , mother of CHF Heart disease Father , father of CHF No problems noted. Social History Social History Social History: Non-drinker, No alcohol use, No drug use, + Caffeine use. Smoking status: Former smoker Tobacco type: smokeless tobacco Smokeless tobacco user: chewing tobacco Second hand tobacco smoke exposure: Yes Smoking end date: 08/13/09
--- NOTE | 2019-09-19 11:09 | PC.NURSE ---
Report given to Kandy Garcia
[2019-09-19 11:11] LABS: Basophils Absolute Auto 0.02 K/mm3 (0.00-0.10); Basophils Percent Auto 0.3 % (0.0-1.0); Eosinophils Absolute Auto 0.01 K/mm3 (0.02-0.50); Eosinophils Percent Auto 0.1 % (1.0-6.0); Hematocrit 37.8 % (40.0-54.0); Hemoglobin 12.6 g/dL (14.0-18.0); Immature Granulocyte Absolute 0.02 K/mm3 (0.00-0.00); Immature Granulocyte Percent A 0.3 % (0.0-0.0); Lymphocytes Absolute Auto 1.06 K/mm3 (1.10-4.50); Lymphocytes Percent Auto 14.9 % (18.0-42.0); Mean Corpuscular HGB Conc 33.3 g/dL (32.0-36.0); Mean Corpuscular Hemoglobin 26.8 pg (27.0-31.0); Mean Corpuscular Volume 80.3 fL (78.0-102.0); Mean Platelet Volume 10.9 fl (8.7-11.0); Monocytes Absolute Auto 0.44 K/mm3 (0.10-0.90); Monocytes Percent Auto 6.2 % (2.0-11.0); Neutrophils Absolute Auto 5.6 K/mm3 (1.7-7.2); Neutrophils Percent Auto 78.2 % (50.0-70.0); Platelet Count Result 337 K/mm3 (150-420); Red Blood Count 4.71 M/mm3 (4.70-6.10); Red Cell Distribution Width 13.3 % (11.6-14.4); White Blood Count 7.1 K/mm3 (4.8-10.8)
[2019-09-19 11:17] LABS: Add Urine Microscopic? YES; Appearance Urine Clear (Clear); Bilirubin Urine Negative (Negative); Blood Urine 1+ (Negative); Color Urine Yellow (Yellow); Glucose Urine UA 3+ (Negative); Ketones Urine Negative (Negative); Leukocyte Esterase Ur Negative LEU/UL (Negative); Nitrate Urine Negative (Negative); Protein Urine 2+ (Negative); Urobilinogen Urine 0.2 mg/dL (0.2-1.0)
[2019-09-19] MEDS: SODIUM CHLORIDE 0.9% IV 1,000 ML 999 ML IV CONT (11:19)
[2019-09-19] MEDS: ONDANSETRON INJ 4 MG/2 ML VIAL IV PUSH (11:19)
[2019-09-19] MEDS: HYDROMORPHONE HCL 2 MG/ML VIAL 0.5 MG IV PUSH (11:20)
[2019-09-19 11:24] LABS: Alanine Aminotransferase 24 U/L (16-63); Alkaline Phosphatase 90 U/L (46-116); Aspartate Amino Transferase 18 U/L (15-37); Bilirubin,Total 0.2 mg/dL (0.00-1.00); Blood Urea Nitrogen 14 mg/dL (7-18); Calcium 8.6 mg/dL (8.5-10.1); Carbon Dioxide 29 mmol/L (21-32); Chloride 98 mmol/L (98-108); Estimated CRCL calculation 107 ml/min; Estimated Glomerular Filt Rate > 60; Glucose 377 mg/dL (70-99); Lipase 69 U/L (73-393); Osmolality Calculated 297 mOsm/kg (285-295); Partial Thromboplastin Time 26.6 SEC (22.3-31.6); Prothrombin Time 10.8 Seconds (9.64-11.0); Sodium 136 mmol/L (136-145); Total Protein 7.7 g/dL (6.4-8.2)
[2019-09-19 11:28] LABS: Squamous Epithelial Cell Urine Rare /hpf (Few); WBC Urine None seen /hpf (0-3)
[2019-09-19 11:29] LABS: Bacteria Urine Trace /hpf
[2019-09-19 12:55] VITALS: RESP 14; O2SAT 100
--- NOTE | 2019-09-28 22:52 | PC.NURSE ---
IVF START TIME 09/19/19 1035. IVF STOP TIME 09/19/19 1134
== END 2019-09-19 12:58 | disposition home or self-care (01) ==
PROVIDERS: Emergency Provider Emergency Medicine; PCP Physician Assistant
DX: R10.9 Unspecified abdominal pain (principal); R31.29 Other microscopic hematuria
CPT/HCPCS: 36415; 74176; 80053; 81001; 83690; 85025; 85610; 85730; 96374; 96375; 99283; 99284; J1170; J2405; J7030

== ENCOUNTER 2019-09-26 10:58 | Emergency (ER) | payer MEDICARE, MEDICAID, SELFPAY ==
[2019-09-26 11:18] VITALS: BP 113/56; PULSE 104; RESP 20; TEMP 36.4; O2SAT 98
--- NOTE | 2019-09-26 11:21 | ED.GENADULT ---
HPI - General Adult General Chief complaint: Unspecified Stated complaint: high blood surgar Source: patient Mode of arrival: ambulatory Limitations: no limitations History of Present Illness HPI narrative: Ronny Is a 43-year-old man with a complex past medical history most significant for hypertension, hyperlipidemia, coronary artery disease GERD and insulin-dependent type 2 diabetes that was referred to the emergency department for high sugars. He had a hospital follow-up for SAUL with his primary care physician yesterday. Labs were done and revealed a glucose that was in the high 700 per patient report. He received a call from his office and was sent to the emergency. He took a sugar this morning and was in the 400s. Point of care glucose was in the 100s upon arrival to the emergency department. He has pain in his back and legs but this is not new for him. He has no other medical concerns. He specifically denies headache, vision changes, chest pain shortness of breath nausea vomiting, abdominal pain, dysuria and polyuria. MD complaint: Referred to ED by PCP for high serum glucose Related Data Home Medications Medication Instructions Recorded Confirmed Basaglar KwikPen U-100 Insulin 60 unit SUBCUT HS 08/13/19 09/26/19 albuterol sulfate 2 puff INHALATION TID PRN 08/13/19 09/26/19 aspirin 81 mg PO DAILY 08/13/19 09/26/19 atorvastatin 10 mg PO HS 08/13/19 09/26/19 insulin aspart U-100 [Novolog 20 unit SUBCUT TID 08/13/19 09/26/19 Flexpen U-100 Insulin] lisinopril 5 mg PO DAILY 08/13/19 09/26/19 metformin 1,000 mg PO BID 08/13/19 09/26/19 omega 5-qlq-dip-fish oil [Fish Oil] 1 cap PO BID 08/13/19 09/26/19 pantoprazole 40 mg PO DAILY 08/13/19 09/26/19 sertraline 200 mg PO DAILY 08/13/19 09/26/19 furosemide 40 mg PO BID 09/19/19 09/26/19 levothyroxine 50 mcg PO DAILY 09/19/19 09/26/19 Allergies Allergy/AdvReac Type Severity Reaction Status Date / Time NKDA Allergy Mild Uncoded 12/08/10 21:04 Review of Systems Constitutional: Constitutional: Denies chills, Denies fever(s), Denies weight gain and Denies weight loss Eyes: Eyes: Denies change in vision, Denies eye discharge and Denies loss of vision ENT: Denies Normal hearing present, Denies vertigo, Denies dizziness and Denies epistaxis Cardiovascular: Cardiovascular: Denies chest pain with activity, Denies syncope, Denies edema and Denies dyspnea on exertion Respiratory: Respiratory: Denies cough, Denies hemoptysis and Denies dyspnea on exertion Gastrointestinal: Gastrointestinal: Denies abdominal pain, Denies diarrhea, Denies nausea and Denies vomiting Genitourinary: Genitourinary: Denies hematuria and Denies dysuria Musculoskeletal: Musculoskeletal: Denies deformity Neurologic: Denies behavioral changes, Denies confusion, Denies vertigo, Denies dizziness, Denies syncope and Denies loss of vision Psychiatric: Psychiatric: Denies anxiety, Denies behavioral changes, Denies confusion and Denies depression Endocrine: Endocrine: Reports no additional endocrine complaints Hematologic/Lymphatic: Hematologic/Lymphatic: Reports no additional hematologic/lymphatic complaints Allergic/Immunologic: Allergic/Immunologic: Reports no additional allergic/immunologic complaints [facility] Past Medical History Medical History (Updated 09/26/19 @ 12:22 by Nick Quick DO) Amblyopia Anemia (Unknown) Bilateral knee pain Depression Diabetes mellitus Exogenous obesity Hyperlipidemia Hypertension Morbid obesity with BMI of 50.0-59.9, adult (Unknown) Surgical History Surgical History (Updated 09/19/19 @ 11:14 by Emory Yates MD) H/O eye surgery Hx of tonsillectomy No significant past surgical history Social History Social History Social History: Non-drinker, No alcohol use, No drug use, + Caffeine use. Smoking status: Former smoker Tobacco type: smokeless tobacco Smokeless tobacco user: giuliano
[2019-09-26 11:35] LABS: Basophils Absolute Auto 0.03 K/mm3 (0.00-0.10); Basophils Percent Auto 0.7 % (0.0-1.0); Eosinophils Absolute Auto 0.02 K/mm3 (0.02-0.50); Eosinophils Percent Auto 0.4 % (1.0-6.0); Hematocrit 39.7 % (40.0-54.0); Hemoglobin 13.3 g/dL (14.0-18.0); Immature Granulocyte Absolute 0.01 K/mm3 (0.00-0.00); Immature Granulocyte Percent A 0.2 % (0.0-0.0); Lymphocytes Absolute Auto 1.35 K/mm3 (1.10-4.50); Lymphocytes Percent Auto 29.7 % (18.0-42.0); Mean Corpuscular HGB Conc 33.5 g/dL (32.0-36.0); Mean Corpuscular Hemoglobin 26.5 pg (27.0-31.0); Mean Corpuscular Volume 79.1 fL (78.0-102.0); Mean Platelet Volume 9.8 fl (8.7-11.0); Monocytes Absolute Auto 0.41 K/mm3 (0.10-0.90); Neutrophils Absolute Auto 2.7 K/mm3 (1.7-7.2); Platelet Count Result 325 K/mm3 (150-420); Red Blood Count 5.02 M/mm3 (4.70-6.10); Red Cell Distribution Width 13.4 % (11.6-14.4); White Blood Count 4.5 K/mm3 (4.8-10.8)
[2019-09-26 11:41] LABS: Add Urine Microscopic? YES; Appearance Urine Clear (Clear); Bilirubin Urine Negative (Negative); Blood Urine 1+ (Negative); Color Urine Yellow (Yellow); Glucose Urine UA 3+ (Negative); Ketones Urine Negative (Negative); Leukocyte Esterase Ur Negative (Negative); Nitrate Urine Negative (Negative); Protein Urine 1+ (Negative); Specific Grav Ur 1.015 (1.010-1.020); Urobilinogen Urine 0.2 mg/dL (0.2-1.0); pH Urine 5.5 (5.0-8.0)
[2019-09-26 11:50] LABS: Bacteria Urine Trace /hpf; Squamous Epithelial Cell Urine Rare /hpf (Few); WBC Urine None seen /hpf (0-3)
[2019-09-26 11:57] LABS: Alanine Aminotransferase 36 U/L (16-63); Albumin Level 3.3 g/dL (3.4-5.0); Alkaline Phosphatase 112 U/L (46-116); Anion Gap 12.9 mmol/L (7-16); Aspartate Amino Transferase 20 U/L (15-37); Bilirubin,Total 0.1 mg/dL (0.00-1.00); Blood Urea Nitrogen 33 mg/dL (7-18); Calcium 8.7 mg/dL (8.5-10.1); Carbon Dioxide 27 mmol/L (21-32); Chloride 100 mmol/L (98-108); Estimated CRCL calculation 80 ml/min; Estimated Glomerular Filt Rate 56; Glucose 83 mg/dL (70-99); Osmolality Calculated 288 mOsm/kg (285-295); Potassium 3.9 mmol/L (3.5-5.1); Sodium 136 mmol/L (136-145); Total Protein 8.1 g/dL (6.4-8.2)
[2019-09-26 12:27] VITALS: BP 112/72; PULSE 98; RESP 20
[2019-09-26 13:01] LABS: Glucose Point of Care 114 (65-105)
== END 2019-09-26 12:28 | disposition home or self-care (01) ==
PROVIDERS: Emergency Provider Family Medicine
DX: E11.9 Type 2 diabetes mellitus without complications (principal); R31.9 Hematuria, unspecified; N17.9 Acute kidney failure, unspecified; E78.5 Hyperlipidemia, unspecified; I10 Essential (primary) hypertension; Z87.891 Personal history of nicotine dependence
CPT/HCPCS: 36415; 80053; 81001; 85025; 99282; 99283

== ENCOUNTER 2019-09-26 12:27 | Outpatient (CLI) | payer MEDICARE, MEDICAID, SELFPAY ==
--- NOTE | ~2019-09-26 | XR_ITS ---
EXAMINATION: XR lumbar spine 2-3V DATE: 09/26/2019 12:58 INDICATION: Upper lumbar back pain. Lower thoracic back pain. TECHNIQUE: 3 views of lumbar spine were obtained. COMPARISON: CT abdomen and pelvis 09/19/2019 FINDINGS: There is 4 degrees levocurvature of thoracolumbar spine. There are chronic bilateral L5 par s defects. There is 8 mm anterolisthesis of L5 on S1. There is mild chronic height loss of L5 vertebr al body posteriorly. There is mildly decreased disc height at L3-L4 and L4-L5 and severely decreased disc height at L5-S1. There is multilevel mild facet joint osteoarthritis. IMPRESSION: 1. Severe lower lumbar spondylosis. 2. Chronic bilateral L5 pars defects with grade 1 anterolisthesis of L5 on S1. Reviewed, dictated and finalized at location A. OMER SERVICE RECEPTIONIST
--- NOTE | ~2019-09-26 | XR_ITS ---
EXAMINATION: XR thoracic spine 3V DATE: 09/26/2019 12:58 INDICATION: Lower thoracic back pain. Upper lumbar back pain. TECHNIQUE: 3 views of thoracic spine were obtained. COMPARISON: CT abdomen and pelvis 09/19/2019 FINDINGS: There is 9 degrees dextrocurvature of thoracic spine. There is mild chronic anterior wedgin g of T9-T12 vertebral bodies. There is mildly decreased disc height from T8-T9 through T11-T12. There are endplate osteophytes at multiple levels in lower thoracic spine. IMPRESSION: 1. Mild thoracic spondylosis. Reviewed, dictated and finalized at location A. ERTIBLE POWER SHOVEL OPERATOR
== END 2019-09-26 12:28 | disposition home or self-care (01) ==
LOC: CHSIMG 12:30
PROVIDERS: PCP Family Medicine
DX: M54.6 Pain in thoracic spine (principal)
CPT/HCPCS: 72072; 72100

== ENCOUNTER 2020-01-04 08:48 | Observation (INO) | payer MEDICARE, MEDICAID, SELFPAY ==
--- NOTE | ~2020-01-04 | XR_ITS ---
EXAMINATION: XR ankle RT min 3V INDICATION: Right ankle pain after fall TECHNIQUE: Four views of the right ankle are obtained. COMPARISON: None available FINDINGS: There is no fracture, dislocation, or subluxation. Soft tissue swelling surrounds the ankle . An old, healed fifth metatarsal fracture is noted. Calcified atherosclerosis is seen which is great er than expected for patient age. IMPRESSION: 1. Ankle soft tissue swelling without acute osseous abnormality. 2. Calcified atherosclerosis, greater than expected for patient age. Reviewed, dictated and finalized at location A.
--- NOTE | ~2020-01-04 | XR_ITS ---
XR knee RT 2V DATE: 01/04/2020 09:35 INDICATION: Fall. Right knee injury, pain TECHNIQUE: AP and crosstable lateral views COMPARISON: None FINDINGS: There is mild periarticular spurring of the patella. Joint spaces appear relatively preserv ed. No fracture or dislocation or joint effusion. No periosteal reaction or bone destruction. No radiopaq ue intra-articular loose body or chondrocalcinosis. IMPRESSION: Minimal osteoarthritic change No fracture, dislocation or joint effusion Reviewed, dictated and finalized at location A.
--- NOTE | ~2020-01-04 | XR_ITS ---
EXAMINATION: XR hip RT 2V w AP pelvis DATE: 01/04/2020 09:34 INDICATION: Right hip pain. TECHNIQUE: An anteroposterior view of the pelvis and 2 views of right hip were obtained. COMPARISON: Pelvis and hip radiographs 05/16/2019, CT abdomen and pelvis 09/19/2019 FINDINGS: Bone alignment is normal. No fracture. There is mild osteoarthritis of the hips. There is s evere lower lumbar spondylosis. IMPRESSION: 1. Mild osteoarthritis of the hips. Reviewed, dictated and finalized at location A.
--- NOTE | ~2020-01-04 | XR_ITS ---
XR chest 2V DATE: 01/04/2020 09:34 INDICATION: Shortness of breath TECHNIQUE: AP and lateral views COMPARISON: 08/13/2019 portable AP chest 08/16/2019 CT chest high resolution scan FINDINGS: Heart size appears borderline, not optimally evaluated on AP projection because of magnific ation. No pulmonary infiltrate or consolidation, pleural effusion or pulmonary vascular congestion or pneumothorax is detected. IMPRESSION: No active pulmonary disease Reviewed, dictated and finalized at location A. IMPRESSION: No active pulmonary disease
[2020-01-04 09:00] VITALS: BP 117/68; PULSE 99; RESP 24; TEMP 37.2; O2SAT 98
--- NOTE | 2020-01-04 09:00 | ECG_ITS ---
Measurements Intervals [place] Rate: 98 P: 49 SC: 167 QRS: -21 QRSD: 99 T: 60 QT: 356 QTc: 456 Interpretive Statements SINUS RHYTHM POOR R WAVE PROGRESSION, ANTERIOR LEADS NONSPECIFIC ST ELEVATION IN ANTEROLAT/INF LEADS BORDERLINE ECG Electronically Signed On 01-04-2020 11:09:02 CDT by Leoncio Vargas D.O.
--- NOTE | 2020-01-04 09:02 | ED.GENADULT ---
HPI - General Adult General Chief complaint: Fall Stated complaint: ambulance History of Present Illness HPI narrative: Ronny is a 44 and with a complex past medical history that was brought to the emergency department by EMS after he fell to his knees while getting into his car. he was coming to the hospital for routine blood work. While getting into a car his legs felt weak and he fell to his knees. EMS was called for a lift assist. he did not hit his head or neck. He denies any headache or neck pain. He reports pain in his right knee and left hip after the fall. he also reports that he has been short of breath the last couple days with subjective fevers, chills and night sweats. no chest pain, nausea, vomiting, diarrhea, or syncope or lightheadedness. Related Data Home Medications Medication Instructions Recorded Confirmed albuterol sulfate 2 puff INHALATION TID PRN 08/13/19 01/04/20 aspirin 81 mg PO DAILY 08/13/19 01/04/20 omega 5-fax-tut-fish oil [Fish Oil] 1 cap PO BID 08/13/19 01/04/20 pantoprazole 40 mg PO DAILY 08/13/19 01/04/20 sertraline 200 mg PO DAILY 08/13/19 01/04/20 levothyroxine 50 mcg PO DAILY 09/19/19 01/04/20 Allergies Allergy/AdvReac Type Severity Reaction Status Date / Time NKDA Allergy Mild Unknown Uncoded 10/15/19 07:31 Review of Systems Constitutional: Constitutional: Reports as per HPI Eyes: Eyes: Reports no additional eye complaints ENT: Reports system reviewed and no additional complaints, except as documented Cardiovascular: Cardiovascular: Reports no additional cardiovascular complaints Respiratory: Respiratory: Reports no additional respiratory complaints Gastrointestinal: Gastrointestinal: Reports no additional gastrointestinal complaints Genitourinary: Genitourinary: Reports no additional male genitourinary complaints Musculoskeletal: Musculoskeletal: Reports no additional musculoskeletal complaints Integumentary/Breasts: Skin/Breast: Reports system reviewed and no additional complaints, except as docu Neurologic: Reports system reviewed and no additional complaints, except as documented Psychiatric: Psychiatric: Reports no additional psychiatric complaints Endocrine: Endocrine: Reports no additional endocrine complaints Hematologic/Lymphatic: Hematologic/Lymphatic: Reports no additional hematologic/lymphatic complaints Allergic/Immunologic: Allergic/Immunologic: Reports no additional allergic/immunologic complaints [facility] Past Medical History Medical History Amblyopia Anemia (Unknown) Back pain Bilateral knee pain Depression Diabetes mellitus Exogenous obesity Hyperlipidemia Hypertension Morbid obesity with BMI of 50.0-59.9, adult (Unknown) Surgical History Surgical History H/O eye surgery Hx of tonsillectomy No significant past surgical history Family History Family History Mother , mother of CHF Heart disease Father , father of CHF No problems noted. Social History Social History Social History: Non-drinker, No alcohol use, No drug use, + Caffeine use. Smoking status: Former smoker Tobacco type: smokeless tobacco Smokeless tobacco user: chewing tobacco Second hand tobacco smoke exposure: Yes Smoking end date: 08/13/09 Additional smoking assessment comments: does not smoke; uses 1 can of chewing tobacco per day. Alcohol intake: never Substance use: never Substance use type: does not use Gender identity (if verbalized by the patient): Male Agree to blood products: Yes Exam Const: General: no acute distress and alert Orientation/consciousness: patient oriented x3 Limitations: No altered mental status Other: he had a significant amount of dirt on his lower
[2020-01-04] MEDS: ASPIRIN 81 MG CHEWABLE TABLET 324 MG PO (09:36)
[2020-01-04 09:49] LABS: Basophils Absolute Auto 0.05 K/mm3 (0.00-0.10); Basophils Percent Auto 0.6 % (0.0-1.0); Eosinophils Absolute Auto 0.02 K/mm3 (0.02-0.50); Eosinophils Percent Auto 0.2 % (1.0-6.0); Hematocrit 38.8 % (40.0-54.0); Hemoglobin 13.8 g/dL (14.0-18.0); Immature Granulocyte Absolute 0.04 K/mm3 (0.00-0.00); Immature Granulocyte Percent A 0.5 % (0.0-0.0); Lymphocytes Absolute Auto 1.13 K/mm3 (1.10-4.50); Lymphocytes Percent Auto 14.1 % (18.0-42.0); Mean Corpuscular HGB Conc 35.6 g/dL (32.0-36.0); Mean Corpuscular Hemoglobin 27.7 pg (27.0-31.0); Mean Corpuscular Volume 77.9 fL (78.0-102.0); Mean Platelet Volume 10.2 fl (8.7-11.0); Monocytes Absolute Auto 0.49 K/mm3 (0.10-0.90); Monocytes Percent Auto 6.1 % (2.0-11.0); Neutrophils Absolute Auto 6.3 K/mm3 (1.7-7.2); Neutrophils Percent Auto 78.5 % (50.0-70.0); Platelet Count Result 345 K/mm3 (150-420); Red Blood Count 4.98 M/mm3 (4.70-6.10); Red Cell Distribution Width 12.5 % (11.6-14.4)
[2020-01-04 09:59] LABS: Prothrombin Time 10.3 Seconds (9.64-11.0)
[2020-01-04 10:07] LABS: BNP 5.2 pg/mL (0-100)
[2020-01-04 10:09] LABS: Alanine Aminotransferase 22 U/L (16-63); Albumin Level 3.5 g/dL (3.4-5.0); Alkaline Phosphatase 82 U/L (46-116); Anion Gap 12.6 mmol/L (7-16); Aspartate Amino Transferase 16 U/L (15-37); Bilirubin,Total 0.3 mg/dL (0.00-1.00); Blood Urea Nitrogen 25 mg/dL (7-18); Calcium 9.4 mg/dL (8.5-10.1); Carbon Dioxide 27 mmol/L (21-32); Chloride 89 mmol/L (98-108); Estimated CRCL calculation 77 ml/min; Estimated Glomerular Filt Rate 54; Glucose 358 mg/dL (70-99); Osmolality Calculated 278 mOsm/kg (285-295); Potassium 3.6 mmol/L (3.5-5.1); Sodium 125 mmol/L (136-145); Total Protein 7.5 g/dL (6.4-8.2)
[2020-01-04 10:10] LABS: Creatine Kinase 162 U/L (39-308); Troponin I < 0.02 ng/mL (0.00-0.056)
[2020-01-04 11:09] VITALS: BP 135/76; PULSE 97; RESP 20; O2SAT 98
--- NOTE | 2020-01-04 11:13 | PC.NURSE ---
Pt sitting in wheelchair c/o right knee pain. Pt watching tv, given water cup. Pt aware of admit.
[2020-01-04 11:20] LABS: Glucose Point of Care 265 (65-105)
[2020-01-04 12:23] LABS: Glucose Point of Care 262 (65-105)
--- NOTE | 2020-01-04 12:23 | PC.NURSE ---
food tray ordered.
--- NOTE | 2020-01-04 12:25 | PC.NURSE ---
instructional media services technician attempting to find temporary [facility] placement for patient.
[2020-01-04 14:22] VITALS: BP 131/56; PULSE 100; O2SAT 98
--- NOTE | 2020-01-04 15:01 | PC.NURSE ---
director of maternity services continues to work on finding placement for placement. Pt moved to bed, warm blanket given, lights dimmed, and call light within reach. No complaints at this time. POA called to check on pt. pt spoke with poa. Poa updated on pt status.
[2020-01-04] MEDS: FUROSEMIDE 40 MG TABLET PO (15:37)
--- NOTE | 2020-01-04 15:38 | PC.NURSE ---
Pt resting comfortably on stretcher, no complaints at this time. Pt given lasix no per edp. edp wants lovenox held.
--- NOTE | 2020-01-04 16:26 | PC.NURSE ---
Dr. Quick speaking with pts poa.
--- NOTE | 2020-01-04 16:30 | PC.NURSE ---
2nd floor called for bed assignment
--- NOTE | 2020-01-04 16:34 | PC.NURSE ---
Pt to be admitted to 2nd floor.
[2020-01-04 17:20] VITALS: RESP 20; O2SAT 98
[2020-01-04 17:35] VITALS: BP 118/77; PULSE 99; RESP 18; TEMP 36.2; O2SAT 99; BMI 51.6
[2020-01-04] MEDS: metFORMIN HCL 500 MG TABLET 1000 MG PO (17:57)
--- NOTE | 2020-01-04 19:05 | PC.NURSE ---
Patient appears to be sleeping by the rise and fall of his chest. Respirations even and unlabored. No distress noted. Call light in reach.
--- NOTE | 2020-01-04 20:05 | PC.NURSE ---
Patient awakened easily for assessment. Respirations even and unlabored. Denies SOB/pain/complaints/needs @ this time. No distress noted. Call light in reach.
--- NOTE | 2020-01-04 21:00 | PC.NURSE ---
Patient appears to be sleeping by the rise and fall of his chest. Respirations even and unlabored. No distress noted. Call light in reach.
[2020-01-04] MEDS: ATORVASTATIN 10 MG TABLET PO (21:41)
[2020-01-04 22:00] LABS: Glucose Point of Care 402 (65-105)
--- NOTE | 2020-01-04 22:00 | PC.NURSE ---
Patient took HS med without difficulty. 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 Blood ceccg=684. Patient denies SOB/pain/complaints/needs @ this time. No distress noted. Call light in reach.
[2020-01-04] MEDS: INSULIN GLARGINE (*BKC) 100 UNITS/ML 30 UNITS SUB-Q (22:09)
--- NOTE | 2020-01-04 22:10 | PC.NURSE ---
Charge nurse aware of blood sugar of 402 and is contacting MD. Scheduled lantus given. Call light in reach.
--- NOTE | 2020-01-04 22:30 | PC.NURSE ---
Jeff Jc RN notified Dr Motta of patient's blood sugar of 402 with order received to give Humalog 10 units. Dose given. Call light in reach.
--- NOTE | 2020-01-04 23:10 | PC.NURSE ---
Patient appears to be sleeping by the rise and fall of his chest. Respirations even and unlabored. No distress noted. Call light in reach.
[2020-01-05] VITALS: BP 101/54; PULSE 98; RESP 18; TEMP 36.1; O2SAT 94
--- NOTE | 2020-01-05 00:20 | PC.NURSE ---
Patient ambulated to/from bathroom with rolator walker with steady gait. Patient obviously short of breath when got back to bed. Patient said he has breathed the same for a couple years and he's just gotten used to it. Denies pain/complaints/needs @ this time. No distress noted. Call light in reach.
--- NOTE | 2020-01-05 01:05 | PC.NURSE ---
Patient appears to be sleeping by the rise and fall of his chest. Respirations even and unlabored. No distress noted. Call light in reach.
--- NOTE | 2020-01-05 02:05 | PC.NURSE ---
Patient appears to be sleeping by the rise and fall of his chest. Respirations even and unlabored. No distress noted. Call light in reach.
--- NOTE | 2020-01-05 03:00 | PC.NURSE ---
Patient appears to be sleeping by the rise and fall of his chest. Respirations even and unlabored. No distress noted. Call light in reach.
--- NOTE | 2020-01-05 04:10 | PC.NURSE ---
Patient appears to be sleeping by the rise and fall of his chest. Respirations even and unlabored. No distress noted. Call light in reach.
[2020-01-05] MEDS: LEVOTHYROXINE SODIUM 50 MCG TABLET PO (05:40)
[2020-01-05 08:00] VITALS: BP 92/49; PULSE 98; RESP 12; TEMP 36.2; O2SAT 93
[2020-01-05 08:09] LABS: Glucose Point of Care 343 (65-105)
[2020-01-05] MEDS: ASPIRIN 81 MG CHEWABLE TABLET PO (08:44)
[2020-01-05] MEDS: SERTRALINE HCL 50 MG TABLET 200 MG PO (08:44)
[2020-01-05] MEDS: metFORMIN HCL 500 MG TABLET 1000 MG PO ×2 (08:44→16:49)
[2020-01-05] MEDS: IBUPROFEN 400 MG TABLET PO (08:45)
[2020-01-05] MEDS: FUROSEMIDE 40 MG TABLET PO ×2 (08:45→16:49)
[2020-01-05] MEDS: INSULIN GLARGINE (*BKC) 100 UNITS/ML 30 UNITS SUB-Q ×2 (08:50→21:50)
[2020-01-05 10:05] LABS: Basophils Absolute Auto 0.03 K/mm3 (0.00-0.10); Basophils Percent Auto 0.4 % (0.0-1.0); Eosinophils Absolute Auto 0.04 K/mm3 (0.02-0.50); Eosinophils Percent Auto 0.6 % (1.0-6.0); Hematocrit 40.1 % (40.0-54.0); Hemoglobin 13.8 g/dL (14.0-18.0); Immature Granulocyte Absolute 0.02 K/mm3 (0.00-0.00); Immature Granulocyte Percent A 0.3 % (0.0-0.0); Lymphocytes Absolute Auto 1.35 K/mm3 (1.10-4.50); Lymphocytes Percent Auto 19.8 % (18.0-42.0); Mean Corpuscular HGB Conc 34.4 g/dL (32.0-36.0); Mean Corpuscular Hemoglobin 27.5 pg (27.0-31.0); Mean Corpuscular Volume 79.9 fL (78.0-102.0); Monocytes Absolute Auto 0.39 K/mm3 (0.10-0.90); Monocytes Percent Auto 5.7 % (2.0-11.0); Neutrophils Percent Auto 73.2 % (50.0-70.0); Platelet Count Result 339 K/mm3 (150-420); Red Blood Count 5.02 M/mm3 (4.70-6.10); Red Cell Distribution Width 13.2 % (11.6-14.4); White Blood Count 6.8 K/mm3 (4.8-10.8)
--- NOTE | 2020-01-05 10:24 | PM.IMHP ---
H&P: HPI History of Present Illness Chief complaint: ambulance Narrative: Ronny Westbrook is a 44 year old male with a complex past medical history (including morbid obesity with a BMI of 51 and limited ability to comprehend complex procedures/diagnoses) that was brought to the emergency department by EMS after he fell to his knees while getting into his car. He was coming to the hospital for routine blood work. While getting into a car, his legs felt weak and he fell to his knees. EMS was called for a lift assist. He did not hit his head or neck. He denies any headache or neck pain. He reports pain in his right knee and left hip after the fall. He also reports that he has been short of breath the last couple days with subjective fevers, chills and night sweats. No chest pain, nausea, vomiting, diarrhea, or syncope or lightheadedness. He was tested for COVID in the emergency room yesterday. Those COVID test results are still pending. There has been no known COVID exposures. In the ED, when he tried to ambulate with the walker he could only take one step before he felt his knee would give out. It is likely a mix of morbid obesity, physical deconditioning, and a knee contusion. Given that he cannot ambulate, perform his own ADLs, lives alone and has to go up stairs, he unsafe to discharge home. I discussed this with Mellissa the hospitalist who has agreed to admit him for PT/OT. He will likely need a swing bed and possible placement. PT eval in place. Yesterday, Ronny was to be discharged from the ER directly to [facility] in [place], [place]. [facility] is requiring COVID testing prior to their admissions, so he was swabbed yesterday. the plan today is for discharge to [facility] once the COVID results are known. We are to call [facility] at [phone] to set up his admission at that time. Today when I went to see Ronny this morning he was resting in bed. He stated that laying on his right side made his right hip in right knee feel better. His x-ray of his right knee and right hip did not show any acute concerns yesterday. His chest x-ray was also clear. During my examination I noticed that he had some slight swelling to his right ankle on the lateral outside near the lateral malleolus. He did complain of some pain with movement to his right ankle, especially dorsiflexion, and stated that the pain traveled up into the Achilles tendon area of his right lower extremity. I have ordered a x-ray for his right ankle to further examine this. He would benefit from PT evaluation and treatment , whether that is here or at [facility]. his glucose levels have been elevated during this hospital visit. The most recent glucose level was 447 in the lab. I have reviewed his home medications as well as the medications he is currently on. Ordered an additional 10 units of lispro at this time, with a recheck of his glucose level in 1 hour. Review of Systems Constitutional: Constitutional: Reports as per HPI Eyes: Eyes: Reports no additional eye complaints ENT: Reports system reviewed and no additional complaints, except as documented Cardiovascular: Cardiovascular: Reports no additional cardiovascular complaints Respiratory: Respiratory: Reports no additional respiratory complaints Gastrointestinal: Gastrointestinal: Reports no additional gastrointestinal complaints Genitourinary: Genitourinary: Reports no additional male genitourinary complaints Musculoskeletal: Musculoskeletal: Reports no additional musculoskeletal complaints Integumentary/Breasts: Skin/Breast: Reports system reviewed and no additional complaints, except as docu Neurologic: Reports system reviewed and no additional complaints, except as documented Psychiatric: Psychiatric: Reports no additional psychiatric complaints Endocrine: Endocrine: Reports no additional endocrine complaints Hematologic/Lymphatic: Hematologic/Lymphatic: Reports no add
[2020-01-05 10:30] LABS: Alanine Aminotransferase 22 U/L (16-63); Albumin Level 3.1 g/dL (3.4-5.0); Alkaline Phosphatase 81 U/L (46-116); Anion Gap 12.7 mmol/L (7-16); Aspartate Amino Transferase 20 U/L (15-37); Bilirubin,Total 0.3 mg/dL (0.00-1.00); Blood Urea Nitrogen 31 mg/dL (7-18); Calcium 8.9 mg/dL (8.5-10.1); Carbon Dioxide 28 mmol/L (21-32); Chloride 93 mmol/L (98-108); Creatine Kinase 223 U/L (39-308); Estimated CRCL calculation 78 ml/min; Estimated Glomerular Filt Rate 55; Osmolality Calculated 295 mOsm/kg (285-295); Phosphorus 5.5 mg/dL (2.6-4.7); Potassium 3.7 mmol/L (3.5-5.1); Sodium 130 mmol/L (136-145); Total Protein 6.9 g/dL (6.4-8.2)
[2020-01-05 10:37] LABS: Lactic Acid 1.7 mmol/L (0.4-2.0)
[2020-01-05 10:45] LABS: Glucose 447 mg/dL (70-99)
[2020-01-05 10:46] LABS: Troponin I < 0.02 ng/mL (0.00-0.056)
[2020-01-05 12:14] LABS: Glucose Point of Care 309 (65-105)
[2020-01-05] MEDS: ENOXAPARIN 40 MG/0.4 ML SYRINGE SUB-Q (12:42)
[2020-01-05 14:06] LABS: Thyroid Stimulating Hormone 2.18 uIU/mL (0.36-3.74)
[2020-01-05 14:46] LABS: Appearance Urine Clear (Clear); Bilirubin Urine Negative (Negative); Color Urine Yellow (Yellow); Glucose Urine UA 3+ (Negative); Ketones Urine Negative (Negative); Leukocyte Esterase Ur Negative LEU/UL (Negative); Nitrate Urine Negative (Negative); Protein Urine Negative (Negative); Specific Grav Ur 1.015 (1.010-1.020); Urobilinogen Urine 0.2 mg/dL (0.2-1.0); pH Urine 5.5 (5.0-8.0)
[2020-01-05 14:54] LABS: Add Urine Microscopic? YES; Blood Urine Trace-Intact (Negative)
[2020-01-05 14:55] LABS: Bacteria Urine None seen /hpf; RBC Urine 0-2 /hpf (0-2); Squamous Epithelial Cell Urine None seen /hpf (Few); WBC Urine None seen /hpf (0-3)
[2020-01-05 14:56] LABS: Mucus Urine Few /lpf
[2020-01-05 16:00] VITALS: BP 115/76; PULSE 97; RESP 18; TEMP 35.9; O2SAT 100
[2020-01-05 16:39] LABS: Glucose Point of Care 190 (65-105)
[2020-01-05] MEDS: ATORVASTATIN 10 MG TABLET PO (21:48)
[2020-01-05 21:54] LABS: Glucose Point of Care 140 (65-105)
[2020-01-06] VITALS: BP 117/63; PULSE 92; RESP 14; TEMP 36.1; O2SAT 94
[2020-01-06] MEDS: LEVOTHYROXINE SODIUM 50 MCG TABLET PO (06:24)
--- NOTE | 2020-01-06 07:22 | PM.EVENT ---
Event Note Event Note Event Note: This note refers to 11-05-19 visit. Pt denies feeling warm or short of breath. Breath sounds are distant without wheezes or rales Discussed with Mellissa Mckinney. I reviewed and agree with note and plan. Await Sars-Covid result. If negative, [facility] transfer for reconditioning.
[2020-01-06 08:00] VITALS: BP 119/62; PULSE 88; RESP 20; TEMP 36.4; O2SAT 96
[2020-01-06 08:16] LABS: Glucose Point of Care 163 (65-105)
[2020-01-06] MEDS: metFORMIN HCL 500 MG TABLET 1000 MG PO ×2 (08:24→16:24)
[2020-01-06] MEDS: SERTRALINE HCL 50 MG TABLET 200 MG PO (08:25)
[2020-01-06] MEDS: ASPIRIN 81 MG CHEWABLE TABLET PO (08:25)
[2020-01-06] MEDS: FUROSEMIDE 40 MG TABLET PO ×2 (08:25→16:25)
[2020-01-06] MEDS: INSULIN GLARGINE (*BKC) 100 UNITS/ML 30 UNITS SUB-Q ×2 (08:34→20:33)
[2020-01-06 11:48] LABS: Glucose Point of Care 162 (65-105)
[2020-01-06] MEDS: ENOXAPARIN 40 MG/0.4 ML SYRINGE SUB-Q (12:07)
--- NOTE | 2020-01-06 12:49 | PM.IMPN ---
Progress Note: A&P Assessment and Plan (1) Suspected COVID-19 virus infection: Code(s): Z20.828 - Contact with and (suspected) exposure to other viral communicable diseases Status: Acute Assessment and Plan: suspected COVID, so COVID testing was completed yesterday X awaiting results today, [facility] requiring COVID testing done as well placed on isolation on p.r.n. albuterol as patient does have an asthma history EKG with normal sinus rhythm (2) Diabetes mellitus: Code(s): E11.9 - Type 2 diabetes mellitus without complications Status: Acute Assessment and Plan: uncontrolled with A1c of 11.6 Today glucose levels have improved including 163, 162 with yesterday's glucose levels at 190 and 140 Lantus 30u BID humalog 20u TIDHS ordered 10 units lispro PRN for elevated sugar continue metformin, atorvastatin, and aspirin need to work on increasing muscle mass and improving balance while at the same time controlling glucose levels and losing weight, due to the patient's mental abilities he will need great assistance with this plan to discharge to [facility] for further glucose monitoring and improved glucose control on a daily basis (3) Morbid obesity with BMI of 50.0-59.9, adult: Onset Date: Unknown Code(s): E66.01 - Morbid (severe) obesity due to excess calories; Z68.43 - Body mass index (BMI) 50.0-59.9, adult Status: Acute Assessment and Plan: may be multi-factorial related to Hypothyroidism( continue synthroid) TSH wnl = 2.18 or Depression (continue sertraline) controlled at this time need to work on increasing muscle mass and improving balance while at the same time controlling glucose levels and losing weight, due to the patient's mental abilities he will need great assistance with this (4) Physical deconditioning: Code(s): R53.81 - Other malaise Status: Acute Assessment and Plan: as evidence by recent fall and injury of the right side morbidly obese with a BMI 51.6 need to work on increasing muscle mass and improving balance while at the same time controlling glucose levels and losing weight, due to the patient's mental abilities he will need great assistance with this. PT evaluation ordered currently using a walker plan to discharge to [facility] for rehab and physical therapy and strengthening possibly due to chronicly elevated glucose levels and patient not able to exercise himself (either due to mental disability or due to physical stature or weakness), returns to bed as soon as he is done ambulating or using the bathroom. (5) Fall: Code(s): W19.XXXA - Unspecified fall, initial encounter Status: Acute Assessment and Plan: recent fall with injury to the right side pain control in place chest x-ray clear EKG was sinus rhythm PT evaluation ordered plan to discharge to get more rehab physical therapy and strengthening x-ray of the right knee without acute concerns x-ray of the right hip without acute concerns right ankle with some crepitus and localized swelling laterally, pain with flexion and dorsiflexion, Jaron wrap ordered, ice ordered, right ankle x-ray completed showing: There is no fracture, dislocation, or subluxation. Soft tissue swelling surrounds the ankle. An old, healed fifth metatarsal fracture is noted. Calcified atherosclerosis is seen which is greater than expected for patient age.IMPRESSION: 1. Ankle soft tissue swelling without acute osseous abnormality. 2. Calcified atherosclerosis, greater than expected for patient age. (6) Elevated serum creatinine: Code(s): R79.89 - Other specified abnormal findings of blood chemistry Status: Acute Assessment and Plan: September 26 his creatinine was 1.39 prior to that his creatinine was within normal limits in July and August his creatinine was 1.17 or less during this hospitalization his creatinine was 1.43 at a
[2020-01-06 16:00] VITALS: BP 105/70; PULSE 106; RESP 18; TEMP 35.8; O2SAT 96
[2020-01-06 16:59] LABS: Glucose Point of Care 144 (65-105)
[2020-01-06 18:12] LABS: Hematocrit 40.4 % (40.0-54.0); Hemoglobin 13.6 g/dL (14.0-18.0); Mean Corpuscular HGB Conc 33.7 g/dL (32.0-36.0); Mean Corpuscular Hemoglobin 27.6 pg (27.0-31.0); Mean Corpuscular Volume 82.1 fL (78.0-102.0); Mean Platelet Volume 10.2 fl (8.7-11.0); Platelet Count Result 374 K/mm3 (150-420); Red Blood Count 4.92 M/mm3 (4.70-6.10); Red Cell Distribution Width 13.2 % (11.6-14.4); White Blood Count 6.7 K/mm3 (4.8-10.8)
[2020-01-06 18:35] LABS: Anion Gap 16.7 mmol/L (7-16); Blood Urea Nitrogen 25 mg/dL (7-18); Calcium 8.5 mg/dL (8.5-10.1); Carbon Dioxide 26 mmol/L (21-32); Chloride 101 mmol/L (98-108); Estimated CRCL calculation 106 ml/min; Estimated Glomerular Filt Rate > 60; Glucose 161 mg/dL (70-99); Osmolality Calculated 297 mOsm/kg (285-295); Phosphorus 4.6 mg/dL (2.6-4.7); Potassium 3.7 mmol/L (3.5-5.1); Sodium 140 mmol/L (136-145)
[2020-01-06 18:57] LABS: Troponin I < 0.02 ng/mL (0.00-0.056)
--- NOTE | 2020-01-06 20:00 | PC.NURSE ---
charge nurse notified of ck mb results, orders troponin
[2020-01-06] MEDS: ATORVASTATIN 10 MG TABLET PO (20:32)
[2020-01-06 20:43] LABS: Glucose Point of Care 169 (65-105)
[2020-01-06] MEDS: ONDANSETRON HCL ODT 4 MG TABLET PO (20:46)
--- NOTE | 2020-01-06 22:27 | PC.NURSE ---
pt able to amb from bathroom back to bed sba with walker, given extra blanket, pt states his belly is a little upset, given zofran, call light in reach
--- NOTE | 2020-01-06 23:42 | PM.EVENT ---
Event Note Event Note Event Note: Patient states he feels better than when he came in but he is still rather weak. Gets short of breath with walking to the restroom. Regular rate and rhythm without murmur. Lungs are clear to auscultation bilaterally. Abdomen is soft. Scant peripheral edema. Will recheck chemistries today to ensure resolution of hyponatremia and azotemia. Placement tomorrow for physical therapy. I have examined the patient reviewed the chart. I discussed the patient's care with A Rafa LAZCANO and agree with her assessment and plan.
[2020-01-07] VITALS: BP 139/76; PULSE 101; RESP 20; TEMP 36.1; O2SAT 94
[2020-01-07] MEDS: LEVOTHYROXINE SODIUM 50 MCG TABLET PO (06:12)
[2020-01-07 07:40] VITALS: BP 133/76; PULSE 94; RESP 18; TEMP 36.8; O2SAT 97
[2020-01-07 08:09] LABS: Glucose Point of Care 159 (65-105)
[2020-01-07] MEDS: FUROSEMIDE 40 MG TABLET PO ×2 (09:08→17:10)
[2020-01-07] MEDS: SERTRALINE HCL 50 MG TABLET 200 MG PO (09:08)
[2020-01-07] MEDS: ASPIRIN 81 MG CHEWABLE TABLET PO (09:09)
[2020-01-07] MEDS: metFORMIN HCL 500 MG TABLET 1000 MG PO ×2 (09:09→17:10)
--- NOTE | 2020-01-07 10:30 | PC.NURSE ---
Patient resting quietly in bed. CERTIFIED PHYSICAL THERAPIST ASSISTANT TOMASZ and Dr. Escamilla in room to speak with patient. Patient aware he is to be discharged home today. Denies any needs. Call dixon at side.
--- NOTE | 2020-01-07 11:02 | PM.DS ---
DS: Diagnosis Admitting Diagnosis Admitting Diagnosis: Contact with and (suspected) exposure to other viral communicable diseases Discharge Diagnosis (1) Suspected COVID-19 virus infection: Code(s): Z20.828 - Contact with and (suspected) exposure to other viral communicable diseases Status: Acute Assessment and Plan: suspected COVID, so COVID testing was completed yesterday , he is COVID negative. Physical therapy evaluated him today and yesterday, and found him strong enough and safe enough to be discharged to home, into the care of his healthcare power of patent attorney and associate designer. placed on isolation on p.r.n. albuterol as patient does have an asthma history EKG with normal sinus rhythm lung sounds are clear today, no cough, no wheezes, no fevers, he is full of energy and ready to go home. (2) Diabetes mellitus: Code(s): E11.9 - Type 2 diabetes mellitus without complications Status: Acute Assessment and Plan: uncontrolled with A1c of 11.6 glucose levels have improved and are less than 200 today. Lantus 30u BID humalog 20u TIDHS ordered 10 units lispro PRN for elevated sugar continue metformin, atorvastatin, and aspirin need to work on increasing muscle mass and improving balance while at the same time controlling glucose levels and losing weight, due to the patient's mental abilities he will need great assistance with this plan to discharge to [facility] for further glucose monitoring and improved glucose control on a daily basis (3) Morbid obesity with BMI of 50.0-59.9, adult: Onset Date: Unknown Code(s): E66.01 - Morbid (severe) obesity due to excess calories; Z68.43 - Body mass index (BMI) 50.0-59.9, adult Status: Acute Assessment and Plan: may be multi-factorial related to Hypothyroidism( continue synthroid) TSH wnl = 2.18 or Depression (continue sertraline) controlled at this time need to work on increasing muscle mass and improving balance while at the same time controlling glucose levels and losing weight, due to the patient's mental abilities he will need great assistance with this (4) Physical deconditioning: Code(s): R53.81 - Other malaise Status: Acute Assessment and Plan: as evidence by recent fall and injury of the right side morbidly obese with a BMI 51.6 need to work on increasing muscle mass and improving balance while at the same time controlling glucose levels and losing weight, due to the patient's mental abilities he will need great assistance with this. PT evaluation ordered currently using a walker plan to discharge to [facility] for rehab and physical therapy and strengthening possibly due to chronicly elevated glucose levels and patient not able to exercise himself (either due to mental disability or due to physical stature or weakness), returns to bed as soon as he is done ambulating or using the bathroom. Physical therapy evaluated him today and yesterday, and found him strong enough and safe enough to be discharged to home, into the care of his healthcare power of patent attorney and associate designer. (5) Fall: Code(s): W19.XXXA - Unspecified fall, initial encounter Status: Acute Assessment and Plan: recent fall with injury to the right side pain control in place chest x-ray clear EKG was sinus rhythm PT evaluation ordered plan to discharge to get more rehab physical therapy and strengthening , ordered outpatient therapy PT and OT, 3 days a week x-ray of the right knee without acute concerns x-ray of the right hip without acute concerns right ankle with some crepitus and localized swelling laterally, pain with flexion and dorsiflexion, Jaron wrap ordered, ice ordered, right ankle x-ray completed showing: There is no fracture, dislocation, or subluxation. Soft tissue swelling surrounds the ankle. An old, healed fifth metatarsal fracture is noted. Calcified atherosclerosis is seen which is greater t
--- NOTE | 2020-01-07 11:28 | PC.NURSE ---
Patient resting in bed on left side watching TV. Denies any needs at this time. Call dixon at side.
[2020-01-07 12:01] LABS: Glucose Point of Care 263 (65-105)
[2020-01-07] MEDS: CALCIUM CARBONATE (TUMS) 500 MG (200 MG ELEMENTAL) PO ×2 (13:09→17:10)
--- NOTE | 2020-01-07 13:10 | PC.NURSE ---
Patient reporting indegestion. VISITOR USE ASSISTANT notified. New order for tums received. Pt.took with no issues.
--- NOTE | 2020-01-07 14:30 | PC.NURSE ---
Patient resting in bed on left side. Denies any needs. Call light at side.
[2020-01-07 15:35] VITALS: BP 112/78; PULSE 102; RESP 18; TEMP 36.4; O2SAT 98
[2020-01-07 17:19] LABS: Glucose Point of Care 157 (65-105)
--- NOTE | 2020-01-07 18:00 | PC.NURSE ---
Patients XANDER Arce here to pick him up and transport him home. All belongings an medication gathered and sent home with patient. All discharge instructions and education reviewed with XANDER Arce and Patient. Both report understanding. Patient had no IV access. Accompanied to front door via wheelchair by this nurse, patient left in private vehicle with XANDER Arce. Patient required no assist to get into car.
== END 2020-01-07 18:00 | disposition home or self-care (01) ==
LOC: CHSED 11:30 → CHS2ND 18:12
PROVIDERS: Emergency Medicine; Nurse Practitioner; Admitting Provider Family Medicine; Emergency Provider Family Medicine; PCP Family Medicine; Visit Provider Family Medicine
DX: R53.81 Other malaise (principal); E87.1 Hypo-osmolality and hyponatremia; R06.02 Shortness of breath; M25.561 Pain in right knee; M25.552 Pain in left hip; R26.2 Difficulty in walking, not elsewhere classified; R79.89 Other specified abnormal findings of blood chemistry; Z20.828 Contact with and (suspected) exposure to other viral communicable diseases; H53.009 Unspecified amblyopia, unspecified eye; E11.9 Type 2 diabetes mellitus without complications; E78.5 Hyperlipidemia, unspecified; I10 Essential (primary) hypertension; E03.9 Hypothyroidism, unspecified; K21.9 Gastro-esophageal reflux disease without esophagitis; W19.XXXA Unspecified fall, initial encounter; E66.01 Morbid (severe) obesity due to excess calories; Z68.43 Body mass index [BMI] 50.0-59.9, adult; Z87.891 Personal history of nicotine dependence
CPT/HCPCS: 36415; 71046; 73502; 73560; 73610; 80048; 80053; 81001; 82550; 82553; 83036; 83605; 83735; 83880; 84100; 84443; 84484; 85025; 85027; 85610; 87635; 93005; 96372; 97161; 97530; 99283; 99285; A9270; C9803; G0378; J1650; J1815; U0003

== ENCOUNTER 2020-01-11 09:02 | Outpatient (CLI) | payer MEDICARE, MEDICAID, SELFPAY ==
[2020-01-11 09:49] LABS: MALB Creatinine Ratio 1049.8 mg/g (0-30); Microalbumin Urine Random > 400.0 mg/L
[2020-01-11 10:32] LABS: Thyroid Stimulating Hormone 2.22 uIU/mL (0.36-3.74)
== END 2020-01-11 09:03 | disposition home or self-care (01) ==
PROVIDERS: PCP Family Medicine; Visit Provider Family Medicine
DX: E03.9 Hypothyroidism, unspecified (principal); E11.9 Type 2 diabetes mellitus without complications
CPT/HCPCS: 36415; 82043; 83036; 84443

== ENCOUNTER 2020-01-16 08:37 | Outpatient (RCR) | payer MEDICARE, MEDICAID, SELFPAY ==
--- NOTE | 2020-01-16 09:10 | PTOPEVAL ---
Thank you for referring Ronny Westbrook to [facility]. Please review, sign, date and return this plan of care SUKH. I agree with and certify that the following plan of care is medically necessary. Referring Physician Date Admitting Provider: Attending Provider: Nick Quick DO Referring Provider: *PT Outpatient Evaluation Start: 01/16/20 08:39 Freq: Status: Active Protocol: Document 01/16/20 08:39 MERLYShena (Rec: 01/16/20 09:08 ROXANA [email or web address]) Therapy Assessment Status Assessment Status Assessment Status Evaluation Outpatient Past Medical History Neurological History Hx Migraine Yes Cardiovascular History Hx Congestive Heart Failure Yes Hx Hypercholesterolemia Yes Hx Hypertension Yes Respiratory History Hx Pneumonia Yes Hx Sleep Apnea Yes Gastrointestinal History Hx Gastroesophageal Reflux Disease Yes Genitourinary History Hx Urinary Tract Infection Yes Musculoskeletal History Hx Arthritis Yes Hematological History Hx Hematological Disorders No Significant History Endocrine History Hx Diabetes Yes Hx Hypothyroidism Yes HEENT History Hx Tonsillectomy Yes Integumentary History Hx Skin Disorders No Significant History Reproductive History Hx Reproductive Disorders No Significant History Psychosocial History Hx Attention Deficit Disorder Yes Hx Depression Yes Hx Psychiatric Treatment Yes Pain History Has Past Pain Affected Your Daily Life Yes Effective Methods of Pain Control ibuprofen Anesthesia History Hx Anesthesia Reactions No Significant History Evaluation Information Problem Diagnosis recent fall Onset 01/07/20 Subjective Information Pt. reports that he was Query Text:As Reported By Patient/ getting into a friends car to Family get blood work completed and the right leg gave out resulting in a fall. He reports that he is currently using a walker and has for a while now. He reports that he lives alone in an apartment. He does have steps that are difficult for him to navigate, but states that he has to take his time. He has assistance to get into the community and has assistance in the home through [employer],
--- NOTE | 2020-01-25 14:19 | PCPTNOTE ---
01/25/20 - due to some confusion with insurance, patient will be seeking other facility for coverage of therapy. RONEN
== END 2020-01-23 14:25 | disposition home or self-care (01) ==
LOC: CHSPT 08:37
PROVIDERS: PCP Family Medicine; Visit Provider Family Medicine
DX: M54.9 Dorsalgia, unspecified (principal); E66.01 Morbid (severe) obesity due to excess calories; W19.XXXA Unspecified fall, initial encounter
CPT/HCPCS: 97110; 97161; 97530

== ENCOUNTER 2020-03-18 07:33 | Outpatient (CLI) | payer MEDICARE, MEDICAID, SELFPAY ==
[2020-03-18 10:01] LABS: Alanine Aminotransferase 33 U/L (16-63); Albumin Level 3.7 g/dL (3.4-5.0); Alkaline Phosphatase 87 U/L (46-116); Anion Gap 13.9 mmol/L (7-16); Aspartate Amino Transferase 20 U/L (15-37); Bilirubin,Total 0.3 mg/dL (0.00-1.00); Blood Urea Nitrogen 26 mg/dL (7-18); Calcium 9.1 mg/dL (8.5-10.1); Carbon Dioxide 28 mmol/L (21-32); Chloride 102 mmol/L (98-108); Cholesterol 78 mg/dL (0-200); Estimated Glomerular Filt Rate > 60; Glucose 98 mg/dL (70-99); HDL Direct 21 mg/dL (40-60); LDL Cholesterol Calculated 22 mg/dL (<130); Osmolality Calculated 292 mOsm/kg (285-295); Potassium 4.9 mmol/L (3.5-5.1); Sodium 139 mmol/L (136-145); Total Protein 7.5 g/dL (6.4-8.2); Triglycerides 173 mg/dL (0-150)
== END 2020-03-18 07:34 | disposition home or self-care (01) ==
LOC: CHSLAB 07:37
PROVIDERS: PCP Family Medicine
DX: E11.65 Type 2 diabetes mellitus with hyperglycemia (principal)
CPT/HCPCS: 36415; 80053; 80061

== ENCOUNTER 2020-06-09 15:36 | Outpatient (CLI) | payer MEDICARE, BC, SELFPAY ==
[2020-06-09 17:09] LABS: Alanine Aminotransferase 29 U/L (16-63); Albumin Level 3.5 g/dL (3.4-5.0); Alkaline Phosphatase 102 U/L (46-116); Anion Gap 10 mmol/L (8-16); Aspartate Amino Transferase 15 U/L (15-37); Bilirubin,Total 0.1 mg/dL (0.00-1.00); Blood Urea Nitrogen 28 mg/dL (7-18); Calcium 8.6 mg/dL (8.5-10.1); Carbon Dioxide 24 mmol/L (21-32); Chloride 99 mmol/L (98-108); Estimated Glomerular Filt Rate > 60; Glucose 280 mg/dL (70-99); Osmolality Calculated 291 mOsm/kg (285-295); Potassium 4.8 mmol/L (3.5-5.1); Sodium 133 mmol/L (136-145); Thyroid Stimulating Hormone 4.03 uIU/mL (0.36-3.74)
== END 2020-06-09 15:37 | disposition home or self-care (01) ==
PROVIDERS: PCP Family Medicine
DX: E03.9 Hypothyroidism, unspecified (principal); E11.65 Type 2 diabetes mellitus with hyperglycemia
CPT/HCPCS: 36415; 80053; 84443

== ENCOUNTER 2022-04-09 14:56 | Observation (INO) | payer MEDICARE, MEDICAID, SELFPAY ==
[2022-04-09] VITALS (43 sets, daily range): BP systolic 111–166; BP diastolic 39–139; PULSE 95–127; RESP 16–31; TEMP 36.3–37; O2SAT 90–100; BMI 48.0
--- NOTE | ~2022-04-09 | XR_ITS ---
EXAMINATION: XR chest 2V 04/09/2022 15:30 INDICATION: Weakness. Shortness of breath. PROCEDURE: 2 view chest COMPARISON: Comparison to multiple prior studies sequentially, with oldest reviewed study dated 12/08. FINDINGS: The lungs are clear. The cardiomediastinal silhouette is within normal limits. There are no pleural effusions. There is no pneumothorax suspected. IMPRESSION: 1: NO ACUTE CARDIOPULMONARY DISEASE. Reviewed, dictated and finalized at location B.
--- NOTE | 2022-04-09 15:04 | ECG_ITS ---
Measurements Intervals [place] Rate: 113 P: 49 LA: 165 QRS: -48 QRSD: 95 T: 46 QT: 328 QTc: 450 Interpretive Statements SINUS TACHYCARDIA LOW QRS VOLTAGE IN PRECORDIAL LEADS [QRS DEFLECTION < 1.0 mV IN CHEST LEADS] LEFT ANTERIOR FASCICULAR BLOCK [QRS AXIS <= -45, QR IN I, RS IN II] ANTERIOR MYOCARDIAL INFARCTION, PROBABLY OLD INFERIOR MYOCARDIAL INFARCTION, PROBABLY OLD COMPARED TO ECG 01/04/2020 09:49:00 SINUS TACHYCARDIA NOW PRESENT LEFT ANTERIOR FASCICULAR BLOCK NOW PRESENT MYOCARDIAL INFARCT FINDINGS NOW PRESENT Electronically Signed On 04-10-2022 13:31:17 CDT by Janell Pascual M.D.
[2022-04-09 15:17] LABS: Glucose Point of Care > 500 mg/dl (65-105)
[2022-04-09 15:21] LABS: Basophils Absolute Auto 0.1 K/mm3 (0.0-0.1); Basophils Percent Auto 0.9 % (0.2-1.2); Eosinophils Percent Auto 0.4 % (0-4.4); Hemoglobin 13.2 g/dL (14.0-18.0); Immature Granulocyte Absolute 0.04 K/mm3 (0.00-0.031); Immature Granulocyte Percent A 0.5 % (0-0.5); Lymphocytes Percent Auto 20.9 % (18.3-44.2); Mean Corpuscular HGB Conc 34.7 g/dl (32-36); Mean Corpuscular Hemoglobin 28.1 pg (26-34); Mean Corpuscular Volume 80.9 fl (80-100); Mean Platelet Volume 10.7 fl (7.4-10.4); Monocytes Absolute Auto 0.4 K/mm3 (0.1-0.6); Monocytes Percent Auto 5.2 % (2.6-8.5); Neutrophils Absolute Auto 5.9 K/mm3 (1.3-6.7); Neutrophils Percent Auto 72.1 % (45.5-73.1); Platelet Count Result 379 k/mm3 (150-375); Red Cell Distribution Width 12.8 % (11.5-14.5); White Blood Count 8.1 K/mm3 (4.5-10.0)
[2022-04-09 15:40] LABS: Alanine Aminotransferase 27 U/L (6-50); Albumin Level 4.3 g/dL (3.5-5.1); Alkaline Phosphatase 128 U/L (38-126); Anion Gap 17 mmol/L (8-16); Aspartate Amino Transferase 32 U/L (17-59); Bilirubin,Total 0.5 mg/dL (0.2-1.3); Blood Urea Nitrogen 30 mg/dL (9-20); Calcium 8.3 mg/dL (8.4-10.2); Carbon Dioxide 22 mmol/L (22-30); Chloride 87 mmol/L (98-107); Estimated CRCL calculation 121 ml/min; Estimated Glomerular Filt Rate > 60; Sodium 126 mmol/L (137-145)
[2022-04-09 15:49] LABS: Glucose 653 mg/dL (65-110)
[2022-04-09] MEDS: SODIUM CHLORIDE 0.9% IV 1,000 ML 999 ML IV CONT ×3 (15:49→17:34)
[2022-04-09 16:05] LABS: Alveolar/Arterial O2 Gradient 29.6 mmHg; Base Excess ABG -1.5 mEq/l (+/-2.0); Fractional Inspired Oxygen 21 %; HCO3 ABG 23.5 mEq/l (22.0-26.0); Oxygen Content ABG 16.5 %vol (16.0-22.0); Oxygen Saturation ABG 94.1 % (95.0-100.0); Oxyhemoglobin 92.9 % THb (90.0-100.0); PCO2 ABG 40.7 mmHg (35.0-45.0); PO2 ABG 71.4 mmHg (80.0-100.0); Total Hemoglobin 12.6 g/dL (12.0-18.0); pH ABG 7.379 (7.350-7.450)
[2022-04-09 16:07] LABS: Device ROOM AIR; Site Drawn LEFT BRACHIAL
--- NOTE | 2022-04-09 16:09 | ED.WEAKNESS ---
HPI - Weakness General Chief complaint: Weakness Stated complaint: generalized weakness x several weeks Time Seen by Provider: 04/09/22 15:27 History of Present Illness HPI Narrative: 46-year-old history of high blood pressure, diabetes hypothyroidism presents the emergency room for increasing weakness over the last 3 weeks. Patient states his legs have been weak to the point where he is unable to get up and walk around. Patient admits to recently having friends stay at his apartment, and they ended up telling the patient to leave and has been living in a hotel for the last 2+ weeks. Patient states that he is med compliant with his insulins. States that he recently discontinued Trulicity and the since started Victoza. Also admits to regularly checking blood sugars which have been running 100s to 125's. Related Data Home Medications Medication Instructions Recorded Confirmed atorvastatin 10 mg tablet 10 mg PO DAILY 04/09/22 04/09/22 furosemide 40 mg tablet 20 mg PO BID PRN Edema 04/09/22 04/09/22 insulin aspar prot-insulin aspart 30 unit subcut QAM 04/09/22 04/09/22 100 unit/mL (70-30) subcutaneous pen (Novolog Mix 70-30FlexPen U-100) insulin aspar prot-insulin aspart 40 unit subcut QPM 04/09/22 04/09/22 100 unit/mL (70-30) subcutaneous pen (Novolog Mix 70-30FlexPen U-100) liraglutide 0.6 mg/0.1 mL (18 mg/3 1.8 mg subcut DAILY 04/09/22 04/09/22 mL) subcutaneous pen injector (Victoza 3-Ben) naproxen 500 mg tablet 500 mg PO BID 04/09/22 04/09/22 pantoprazole 40 mg tablet,delayed 40 mg PO DAILY 04/09/22 04/09/22 release sertraline 100 mg tablet 100 mg PO BID 04/09/22 04/09/22 Allergies Allergy/AdvReac Type Severity Reaction Status Date / Time No Known Allergies Allergy Verified 04/09/22 14:57 [facility] Past Medical History Medical History (Updated 04/10/22 @ 19:30 by Joshua Bates, SOLAR [employer]GY SYSTEM INSTALLER) Amblyopia Chronic anemia Depression Gastroesophageal reflux disease Hyperlipidemia Hypertension Hypothyroidism Insulin dependent type 2 diabetes mellitus Morbid obesity Obstructive sleep apnea Surgical History Surgical History (Updated 04/09/22 @ 20:39 by Stephanie Waddell PA-C) History of eye surgery For correction of amblyopia. History of tonsillectomy Family History Family History (Updated 04/09/22 @ 22:18 by Dorothy Padron RN) Mother , mother of CHF Heart disease Congestive heart failure Father , father of CHF Congestive heart failure Social History Social History (Updated 04/09/22 @ 20:40 by Stephanie Waddell PA-C) Social History: Healthcare power of claims attorney: Yazmin Vital, friend. Code status: Full code. Smoking status: Current every day smoker Tobacco type: smokeless tobacco Smokeless tobacco user: chewing tobacco Second hand tobacco smoke exposure: No Additional smoking assessment comments: started chewing tobaco 2007,uses 1 can per week,before that smoked cigares Alcohol intake: never Substance use: never Substance use type: does not use Additional living arrangements comments: Currently staying at a motel looking for different apartment. Parents are . One sister who lives in a halfway. Additional occupation/education comments: On disability. Spiritual care concerns: No Agree to blood products: Yes Course Vital Signs Vital signs: Vital Signs Temperature 36.6 C 04/09/22 15:00 Pulse Rate 112 H 04/09/22 15:00 Respiratory Rate 16 04/09/22 15:00 Blood Pressure 127/39 L 04/09/22 15:00 Pulse Oximetry 97 04/09/22 15:00 Oxygen Delivery Room Air 04/09/22 15:00 Temperature 35.6 C L 04/10/22 14:00 Pulse Rate 89 04/10/22 14:00 Respiratory Rate 20 04/10/22 14:00 Blood Pressure 110/48 L 04/10/22 18:23 Pulse Oximetry 99 04/10/22 14:00 Oxygen Delivery Room Air 04/10/22 08:57 MDM - Weakness Lab Data Result diagrams: 04/10/22 05:55 04/10/22
[2022-04-09 16:27] LABS: Appearance Urine Clear (Clear); Bilirubin Urine Negative (Negative); Blood Urine Trace-lysed (Negative); Color Urine Yellow (Yellow); Glucose Urine UA 3+ mg/dL (Negative); Ketones Urine 1+ mg/dL (Negative); Leukocyte Esterase Ur Negative LEU/UL (Negative); Nitrate Urine Negative (Negative); Protein Urine Negative (Negative); Specific Grav Ur <= 1.005 (1.001-1.035); Urobilinogen Urine 0.2 mg/dL (<2.0)
[2022-04-09 16:31] LABS: NT Pro B Type Natriuretic Pept 151 pg/mL (5-100); Troponin I < 0.012 ng/mL (0.000-0.034)
[2022-04-09 16:35] LABS: RBC Urine 0-2 /hpf (0-2); WBC Urine 0-3 /hpf
[2022-04-09 16:42] LABS: Add Urine Microscopic? YES
--- NOTE | 2022-04-09 18:00 | PM.IMHP ---
H&P: HPI History of Present Illness Date/Time: 04/09/22 18:00 Chief Complaint: Weakness. Narrative: This is a pleasant 46-year-old male with insulin dependent type 2 diabetes mellitus, hypertension, hyperlipidemia, hypothyroidism, and GERD who presented to the emergency department via EMS from local [facility] with complaints of weakness. He has been staying at a local motel over the last several weeks because some ?friends? moved into his apartment and they would not leave, in fact it sounds as though they kicked the patient out his own dwelling. Since being at the motel, he has become increasingly more weak and he is having difficulties getting up and about due to generalized weakness. He reports good oral intake though he has been having an increase in heartburn recently. He states compliance with his home medication though reports that he used his last dose of insulin this morning. He also notes that his Trulicity was recently discontinued and he has been started on Victoza. On arrival to the emergency department his glucose was over 600 which is surprising to the patient as he reports that it has been running between 120 and 190 per his Agnieszka monitoring system. In the ED he was found to have a glucose of 63, sodium 126, carbon dioxide 22, anion gap of 17, and urine showed 1+ ketones. ABG however was unremarkable. Due to his hyperglycemia, weakness, and social concerns he has been admitted overnight for further care and consultation with care coordination. He has no complaints at this time and he specifically denies headache, facial droop, dysarthria, dysphagia, focal weakness, paresthesias, fever, chills, sweats, cold and flu symptoms, chest pain, pleuritic pain, shortness of breath, nausea, vomiting, diarrhea, and dysuria. Review of Systems Review of Systems: Twelve systems were reviewed and are negative except for as per HPI. [facility] Past Medical History Medical History (Updated 04/09/22 @ 20:48 by Stephanie Waddell PA-C) Amblyopia Chronic anemia Depression Gastroesophageal reflux disease Hyperlipidemia Hypertension Hypothyroidism Insulin dependent type 2 diabetes mellitus Morbid obesity Obstructive sleep apnea Surgical History Surgical History (Updated 04/09/22 @ 20:39 by Stephanie Waddell PA-C) History of eye surgery For correction of amblyopia. History of tonsillectomy Family History Family History Mother , mother of CHF Heart disease Father , father of CHF No problems noted. Social History Social History (Updated 04/09/22 @ 20:40 by Stephanie Waddell PA-C) Social History: Healthcare power of director of sales marketing: Yazmin Vital, friend. Code status: Full code. Smoking status: Never smoker Tobacco type: smokeless tobacco Smokeless tobacco user: chewing tobacco Second hand tobacco smoke exposure: Yes Additional smoking assessment comments: One can of chewing tobacco a day. Alcohol intake: never Substance use: never Substance use type: does not use Additional living arrangements comments: Currently staying at a motel looking for different apartment. Parents are . One sister who lives in a shelter. Additional occupation/education comments: On disability. Spiritual care concerns: No Agree to blood products: Yes Meds Home Medications and Allergies Home Medications Medication Instructions Recorded Confirmed Type metformin 500 mg tablet 1,000 mg PO BID #360 tabs 01/01/20 09/29/20 Rx acetaminophen 500 mg tablet 1,000 mg PO Q6H PRN fever or pain 01/07/20 09/29/20 Rx #90 tabs albuterol sulfate 90 mcg/actuation 2 puff inhalation TID PRN 01/10/20 09/29/20 Rx aerosol inhaler Shortness Of Breath #8.5 grams sertraline 100 mg tablet 200 mg PO DAILY #90 tabs 01/10/20 09/29/20 Rx insulin glargine 100 unit/mL (3 See Rx Instructions .Route 02/11/20 09/29/20 Rx mL) subcutaneous pen ([employer] .[place]
[2022-04-09 19:51] LABS: Glucose Point of Care 484 mg/dl (65-105)
[2022-04-09] MEDS: INSULIN ASPART (*BKC) 100 UNITS/ML 12 UNITS SUB-Q (20:42)
[2022-04-09 20:44] LABS: Anion Gap 15 mmol/L (8-16); Blood Urea Nitrogen 25 mg/dL (9-20); Calcium 8.4 mg/dL (8.4-10.2); Carbon Dioxide 22 mmol/L (22-30); Chloride 96 mmol/L (98-107); Estimated CRCL calculation 136 ml/min; Estimated Glomerular Filt Rate > 60; Glucose 507 mg/dL (65-110); Potassium 3.7 mmol/L (3.4-5.0); Sodium 133 mmol/L (137-145)
--- NOTE | 2022-04-09 21:37 | ADMGEN ---
This patient, Ronny Westbrook, was admitted to [facility] S[facility] Room 327-01. Patient/family oriented to hospital policies and general routines including ID bracelet, bed and alarms, visiting hours, pain management, procedures, bathroom and other care routines, personal items, smoking policy, room service/diet, and visiting hours. Information on how to activate the Rapid Response Team has been discussed. Patient/Family are encouraged to report perceived risks to care and to ask questions if they do not understand what they are told or what they should do.
[2022-04-09 21:57] LABS: Glucose Point of Care 334 mg/dl (65-105)
[2022-04-09] MEDS: INSULIN ASPART (*BKC) 100 UNITS/ML 6 UNITS SUB-Q (23:58)
[2022-04-10] VITALS (9 sets, daily range): BP systolic 99–138; BP diastolic 39–81; PULSE 87–91; RESP 16–20; TEMP 35.6–36.4; O2SAT 95–100
--- NOTE | 2022-04-10 01:44 | PHAR ---
HOME MED VERIFIED = VICTOZA PEN 6 MG/ML. NO RX LABEL BUT PEN IS LABELED BY ELEVATOR CONSTRUCTOR.
[2022-04-10 06:09] LABS: Hematocrit 34.8 % (42.0-52.0); Hemoglobin 12.1 g/dL (14.0-18.0); Mean Corpuscular HGB Conc 34.8 g/dl (32-36); Mean Corpuscular Hemoglobin 28.2 pg (26-34); Mean Corpuscular Volume 81.1 fl (80-100); Mean Platelet Volume 10.3 fl (7.4-10.4); Platelet Count Result 303 k/mm3 (150-375); Red Blood Count 4.29 M/mm3 (4.6-6.20); Red Cell Distribution Width 13.1 % (11.5-14.5); White Blood Count 6.3 K/mm3 (4.5-10.0)
[2022-04-10 06:23] LABS: Alanine Aminotransferase 21 U/L (6-50); Albumin Level 3.4 g/dL (3.5-5.1); Alkaline Phosphatase 79 U/L (38-126); Anion Gap 10 mmol/L (8-16); Aspartate Amino Transferase 28 U/L (17-59); Bilirubin,Total 0.3 mg/dL (0.2-1.3); Blood Urea Nitrogen 18 mg/dL (9-20); Calcium 8.6 mg/dL (8.4-10.2); Carbon Dioxide 25 mmol/L (22-30); Chloride 100 mmol/L (98-107); Estimated CRCL calculation 142 ml/min; Estimated Glomerular Filt Rate > 60; Glucose 234 mg/dL (65-110); Potassium 3.4 mmol/L (3.4-5.0); Sodium 135 mmol/L (137-145)
[2022-04-10 07:17] LABS: Hemoglobin A1C > 14.0 % (<5.7)
[2022-04-10 07:24] LABS: Free T4 Free Thyroxine 1.56 ng/mL (0.78-2.19)
[2022-04-10 08:01] LABS: Glucose Point of Care 229 mg/dl (65-105)
[2022-04-10] MEDS: ATORVASTATIN 10 MG TABLET PO (09:08)
[2022-04-10] MEDS: PANTOPRAZOLE 40 MG TABLET PO (09:08)
[2022-04-10] MEDS: SERTRALINE HCL 50 MG TABLET 100 MG PO ×2 (09:08→20:38)
[2022-04-10] MEDS: ENOXAPARIN 40 MG/0.4 ML SYRINGE SUB-Q (09:14)
[2022-04-10] MEDS: POTASSIUM CHLORIDE 20 MEQ TABLET 40 MEQ PO (09:51)
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
[2022-04-10 11:32] LABS: Glucose Point of Care 367 mg/dl (65-105)
[2022-04-10] MEDS: INSULIN ASPART (*BKC) 100 UNITS/ML SUB-Q ×2 (11:46→17:52)
[2022-04-10 16:17] LABS: Glucose Point of Care 291 mg/dl (65-105)
[2022-04-10] MEDS: PHARMACIST COMMUNICATION ORDER 1 EACH XX (19:38)
[2022-04-10 20:59] LABS: Glucose Point of Care 378 mg/dl (65-105)
[2022-04-10] MEDS: INSULIN ASPART (*BKC) 100 UNITS/ML 12 UNITS SUB-Q (21:23)
[2022-04-11 03:48] VITALS: BP 121/57; PULSE 83; RESP 17; TEMP 36.4; O2SAT 97
[2022-04-11 06:08] LABS: Hematocrit 35.1 % (42.0-52.0); Hemoglobin 11.7 g/dL (14.0-18.0); Mean Corpuscular HGB Conc 33.3 g/dl (32-36); Mean Corpuscular Hemoglobin 27.9 pg (26-34); Mean Corpuscular Volume 83.6 fl (80-100); Mean Platelet Volume 10.4 fl (7.4-10.4); Platelet Count Result 301 k/mm3 (150-375); Red Cell Distribution Width 13.3 % (11.5-14.5); White Blood Count 6.2 K/mm3 (4.5-10.0)
[2022-04-11 06:35] LABS: Anion Gap 7 mmol/L (8-16); Blood Urea Nitrogen 14 mg/dL (9-20); Calcium 8.4 mg/dL (8.4-10.2); Carbon Dioxide 27 mmol/L (22-30); Chloride 102 mmol/L (98-107); Estimated CRCL calculation 164 ml/min; Estimated Glomerular Filt Rate > 60; Glucose 161 mg/dL (65-110); Magnesium 1.9 mg/dL (1.6-2.3); Potassium 3.7 mmol/L (3.4-5.0); Sodium 136 mmol/L (137-145)
[2022-04-11 07:59] LABS: Glucose Point of Care 145 mg/dl (65-105)
[2022-04-11] MEDS: SERTRALINE HCL 50 MG TABLET 100 MG PO ×2 (08:26→17:08)
[2022-04-11] MEDS: ENOXAPARIN 40 MG/0.4 ML SYRINGE SUB-Q (08:26)
[2022-04-11] MEDS: PANTOPRAZOLE 40 MG TABLET PO (08:27)
[2022-04-11] MEDS: ATORVASTATIN 10 MG TABLET PO (08:27)
[2022-04-11 11:29] LABS: Glucose Point of Care 365 mg/dl (65-105)
[2022-04-11] MEDS: INSULIN ASPART (*BKC) 100 UNITS/ML SUB-Q ×2 (11:48→17:04)
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
[2022-04-11 14:00] VITALS: BP 137/77; PULSE 84; RESP 18; TEMP 35.8; O2SAT 95
[2022-04-11 15:47] VITALS: BP 133/84
[2022-04-11 16:28] LABS: Glucose Point of Care 215 mg/dl (65-105)
[2022-04-11 20:00] VITALS: BP 136/80; PULSE 84; RESP 18; RESP 20; TEMP 35.9; O2SAT 95; O2SAT 97
[2022-04-11 21:38] LABS: Glucose Point of Care 224 mg/dl (65-105)
[2022-04-12 06:00] VITALS: BP 140/76; PULSE 85; RESP 17; TEMP 36.6; O2SAT 96
[2022-04-12 06:42] LABS: Hematocrit 37.3 % (42.0-52.0); Hemoglobin 12.5 g/dL (14.0-18.0); Mean Corpuscular HGB Conc 33.5 g/dl (32-36); Mean Corpuscular Hemoglobin 28.2 pg (26-34); Mean Platelet Volume 10.3 fl (7.4-10.4); Platelet Count Result 327 k/mm3 (150-375); Red Blood Count 4.44 M/mm3 (4.6-6.20); Red Cell Distribution Width 13.2 % (11.5-14.5); White Blood Count 5.7 K/mm3 (4.5-10.0)
[2022-04-12 07:02] LABS: Anion Gap 7 mmol/L (8-16); Blood Urea Nitrogen 11 mg/dL (9-20); Calcium 8.6 mg/dL (8.4-10.2); Carbon Dioxide 29 mmol/L (22-30); Chloride 101 mmol/L (98-107); Estimated CRCL calculation 143 ml/min; Estimated Glomerular Filt Rate > 60; Glucose 118 mg/dL (65-110); Magnesium 1.6 mg/dL (1.6-2.3); Potassium 3.9 mmol/L (3.4-5.0); Sodium 137 mmol/L (137-145)
[2022-04-12 07:55] LABS: Glucose Point of Care 116 mg/dl (65-105)
[2022-04-12] MEDS: ENOXAPARIN 40 MG/0.4 ML SYRINGE SUB-Q (08:40)
[2022-04-12] MEDS: PANTOPRAZOLE 40 MG TABLET PO (08:41)
[2022-04-12] MEDS: ATORVASTATIN 10 MG TABLET PO (08:41)
[2022-04-12] MEDS: SERTRALINE HCL 50 MG TABLET 100 MG PO ×2 (08:41→18:00)
[2022-04-12 11:35] VITALS: BMI 48.0
[2022-04-12 11:49] LABS: Glucose Point of Care 220 mg/dl (65-105)
[2022-04-12] MEDS: INSULIN ASPART (*BKC) 100 UNITS/ML SUB-Q (12:06)
[2022-04-12 14:00] VITALS: BP 120/59; PULSE 86; RESP 20; TEMP 36.1
--- NOTE | 2022-04-12 14:52 | PM.IMPN ---
Progress Note: A&P Assessment and Plan (1) Hyperglycemia: Code(s): R73.9 - Hyperglycemia, unspecified Status: Acute Assessment and Plan: Blood sugar was over 600 arrival to the ED Patient reports monitoring with Agnieszka continuous glucose monitor and states that blood sugars had been well controlled. However, A1c is >14% Blood sugars have improved following rehydration and appropriate insulin regimen He has been seen in consultation by hospital educator. Recommends transition to 40 units NovoLog mix with breakfast and 20 units with dinner Continue with Accu-Cheks, sliding scale insulin, hypoglycemic protocol Monitor glucose trends (2) Insulin dependent type 2 diabetes mellitus: Code(s): E11.9 - Type 2 diabetes mellitus without complications; Z79.4 - skilled nursing (current) use of insulin Status: Acute Assessment and Plan: A1c is >14.0 Insulin regimen as described above (3) Hyponatremia: Code(s): E87.1 - Hypo-osmolality and hyponatremia Status: Acute Assessment and Plan: Pseudo hyponatremia secondary to hyperglycemia. Resolved. Sodium 137 today (4) Generalized weakness: Code(s): R53.1 - Weakness Status: Acute Assessment and Plan: Likely secondary to dehydration and hyperglycemia in addition to chronic deconditioning. Appreciate PT/OT evaluation (5) Chronic anemia: Code(s): D64.9 - Anemia, unspecified Status: Acute Assessment and Plan: Stable on review of previous labs. (6) Hypertension: Code(s): I10 - Essential (primary) hypertension Status: Acute Assessment and Plan: Blood pressures reviewed and have been well controlled. Last BP 140/76 Patient does not appear to be on antihypertensives Monitor BP trends (7) Hypothyroidism: Code(s): E03.9 - Hypothyroidism, unspecified Status: Acute Assessment and Plan: TSH slightly elevated at 5. T4 is normal Continue levothyroxine. Will need repeat TSH with reflex as an outpatient in 4-6 weeks Subjective Date/time seen: 04/12/22 14:52 Interval history: Date of service: 04/12/2022 Ronny Westbrook is a [age]-year-old male with a history of type 2 diabetes mellitus, hypertension, hypothyroidism, hyperlipidemia, NIMA is seen in follow-up for generalized weakness. He is feeling well today. He has no complaints. He states he had a salad for lunch. He denies abdominal pain, nausea, vomiting, fever, chills. He denies shortness breath, cough, chest pain. Review of Systems Review of Systems: All systems reviewed & are unremarkable except as noted in HPI and below Exam Narrative: General: Obese, well-appearing 46-year-old male, sitting up in bed, comfortable, NARD Neuro: awake, alert and oriented x4, speech clear, no focal neuro deficits noted HEENMT: normocephalic, atraumatic, EOMI, sclerae anicteric, moist oral mucosa Respiratory: clear to auscultation bilaterally, nonlabored breathing Cardio: regular rate, regular rhythm with S1-S2 Abdomen: obese abdomen normoactive bowel sounds, soft, nontender to palpation Skin: no rashes or lesions, warm and dry Psych: appropriate mood and affect, judgment and insight intact Objective Data Vital Signs Vital Signs: Vital Signs - 24 hr 04/11/22 15:47 04/11/22 20:00 04/11/22 20:00 Temperature 96.6 F L Pulse Rate 84 84 Respiratory Rate 18 20 Blood Pressure 133/84 136/80 Pulse Oximetry 95 97 Oxygen Delivery Room Air 04/12/22 07:34 04/12/22 06:00 Temperature 97.8 F Pulse Rate 85 Respiratory Rate 17 Blood Pressure 140/76 Pulse Oximetry 96 Oxygen Delivery Room Air Intake/Output Intake/Output: Intake & Output 04/09/22 04/10/22 04/11/22 04/12/22 23:59 23:59 23:59 23:59 Intake Total 3000 3340 2640 720 Output Total 1300 0 Balance 3000 2040 2640 720 Meds/Results Medications: Active Medications Generic Name Dose Route Sta
[2022-04-12 15:23] VITALS: BP 97/55
[2022-04-12 16:48] LABS: Glucose Point of Care 148 mg/dl (65-105)
[2022-04-12 20:00] VITALS: BP 135/90; PULSE 87; RESP 18; TEMP 36.2; O2SAT 97
[2022-04-12 21:11] LABS: Glucose Point of Care 153 mg/dl (65-105)
[2022-04-13 06:00] VITALS: BP 115/55; PULSE 93; RESP 19; TEMP 35.7; O2SAT 96
[2022-04-13 06:26] LABS: Hematocrit 39.4 % (42.0-52.0); Hemoglobin 12.7 g/dL (14.0-18.0); Mean Corpuscular HGB Conc 32.2 g/dl (32-36); Mean Corpuscular Hemoglobin 27.8 pg (26-34); Mean Corpuscular Volume 86.2 fl (80-100); Mean Platelet Volume 9.9 fl (7.4-10.4); Platelet Count Result 327 k/mm3 (150-375); Red Blood Count 4.57 M/mm3 (4.6-6.20); Red Cell Distribution Width 13.6 % (11.5-14.5); White Blood Count 5.7 K/mm3 (4.5-10.0)
[2022-04-13 06:38] LABS: Anion Gap 7 mmol/L (8-16); Blood Urea Nitrogen 10 mg/dL (9-20); Calcium 8.9 mg/dL (8.4-10.2); Carbon Dioxide 28 mmol/L (22-30); Chloride 101 mmol/L (98-107); Estimated CRCL calculation 142 ml/min; Estimated Glomerular Filt Rate > 60; Glucose 174 mg/dL (65-110); Magnesium 1.6 mg/dL (1.6-2.3); Potassium 4.1 mmol/L (3.4-5.0); Sodium 136 mmol/L (137-145)
[2022-04-13 08:04] LABS: Glucose Point of Care 188 mg/dl (65-105)
[2022-04-13 09:12] VITALS: O2SAT 96
[2022-04-13] MEDS: MAGNESIUM OXIDE 400 MG TABLET PO (09:12)
[2022-04-13] MEDS: ATORVASTATIN 10 MG TABLET PO (09:12)
[2022-04-13] MEDS: SERTRALINE HCL 50 MG TABLET 100 MG PO ×2 (09:12→17:21)
[2022-04-13] MEDS: PANTOPRAZOLE 40 MG TABLET PO (09:13)
[2022-04-13] MEDS: ENOXAPARIN 40 MG/0.4 ML SYRINGE SUB-Q (09:13)
[2022-04-13 11:53] LABS: Glucose Point of Care 323 mg/dl (65-105)
[2022-04-13] MEDS: INSULIN ASPART (*BKC) 100 UNITS/ML SUB-Q (12:07)
[2022-04-13 14:00] VITALS: BP 113/48; PULSE 102; RESP 20; TEMP 35.9; O2SAT 96
--- NOTE | 2022-04-13 15:12 | PM.IMPN ---
Progress Note: A&P Assessment and Plan (1) Hyperglycemia: Code(s): R73.9 - Hyperglycemia, unspecified Status: Acute Assessment and Plan: Blood sugar was over 600 on arrival to the ED Patient reports monitoring with Agnieszka continuous glucose monitor and states that blood sugars had been well controlled. However, A1c is >14% Blood sugars have improved following rehydration and appropriate insulin regimen He has been seen in consultation by health promotion educator. Continue 40 units NovoLog mix with breakfast and 20 units with dinner Accu-Cheks, sliding scale insulin, hypoglycemic protocol Monitor glucose trends (2) Insulin dependent type 2 diabetes mellitus: Code(s): E11.9 - Type 2 diabetes mellitus without complications; Z79.4 - roasterman (current) use of insulin Status: Acute Assessment and Plan: A1c is >14.0 Insulin regimen as described above (3) Hyponatremia: Code(s): E87.1 - Hypo-osmolality and hyponatremia Status: Acute Assessment and Plan: Pseudo hyponatremia secondary to hyperglycemia. Resolved. Sodium 136 today (4) Generalized weakness: Code(s): R53.1 - Weakness Status: Acute Assessment and Plan: Likely secondary to dehydration and hyperglycemia in addition to chronic deconditioning. Appreciate PT/OT evaluation SNF has been recommended. Awaiting accepting facility. Appreciate care coordination following (5) Chronic anemia: Code(s): D64.9 - Anemia, unspecified Status: Acute Assessment and Plan: Stable on review of previous labs. (6) Hypertension: Code(s): I10 - Essential (primary) hypertension Status: Acute Assessment and Plan: Blood pressures reviewed today and have been well controlled Patient does not appear to be on antihypertensives Monitor BP trends (7) Hypothyroidism: Code(s): E03.9 - Hypothyroidism, unspecified Status: Acute Assessment and Plan: TSH slightly elevated at 5. T4 is normal Continue levothyroxine. Will need repeat TSH with reflex as an outpatient in 4-6 weeks Subjective Date/time seen: 04/13/22 15:12 Interval history: Date of service: 04/12/2022 Rnony Westbrook is a [age]-year-old male with a history of type 2 diabetes mellitus, hypertension, hypothyroidism, hyperlipidemia, NIMA is seen in follow-up for generalized weakness. he feels well today. He has no complaints. Denies weakness. States he is getting around without difficulty. He denies abdominal pain, nausea, vomiting, shortness breath, cough, chest pain. His appetite is good. States his blood sugars have been well controlled. Denies dizziness or lightheadedness. Reports regular bowel movements. Denies dysuria or hematuria. Review of Systems Review of Systems: All systems reviewed & are unremarkable except as noted in HPI and below Exam Narrative: General: Obese, well-appearing 46-year-old male, supine in bed, comfortable, NARD Neuro: awake, alert and oriented x4, speech clear, no focal neuro deficits noted HEENMT: normocephalic, atraumatic, EOMI, sclerae anicteric, moist oral mucosa Respiratory: clear to auscultation bilaterally, nonlabored breathing Cardio: regular rate, regular rhythm with S1-S2 Abdomen: obese abdomen, normoactive bowel sounds, soft, nontender to palpation Skin: no rashes or lesions, warm and dry Psych: appropriate mood and affect, judgment and insight intact Objective Data Vital Signs Vital Signs: Vital Signs - 24 hr 04/12/22 15:23 04/12/22 20:00 04/12/22 20:00 Temperature 97.2 F L Pulse Rate 87 Respiratory Rate 18 Blood Pressure 97/55 L 135/90 Pulse Oximetry 97 Oxygen Delivery Room Air 04/13/22 06:00 04/13/22 09:12 04/13/22 09:12 Temperature 96.3 F L Pulse Rate 93 Respiratory Rate 19 Blood Pressure 115/55 L Pulse Oximetry 96 96 Oxygen Delivery Room Air Intake/Output Intake
[2022-04-13 16:16] LABS: Glucose Point of Care 103 mg/dl (65-105)
--- NOTE | 2022-04-13 18:39 | PC.NURSE ---
Pt ambulates well between bed and chair. Pt compliant with care. Pt victoza has no needles for the pen so amount has to be drawn out of the pen using a 3 ml retractable needle syringe per pharmacy instructions. Pt medication off schedule due to dose instruction and order needing clarification. Will continue to monitor pt.
[2022-04-13 20:00] VITALS: PULSE 87; RESP 16; O2SAT 95
[2022-04-13 21:28] LABS: Glucose Point of Care 170 mg/dl (65-105)
[2022-04-13 21:46] VITALS: BP 148/81; PULSE 87; RESP 16; TEMP 36.6; O2SAT 95
[2022-04-14] VITALS (10 sets, daily range): BP systolic 109–165; BP diastolic 61–95; PULSE 76–96; RESP 16–32; TEMP 35.8–36.5; O2SAT 96–98
[2022-04-14 06:38] LABS: Hematocrit 42.1 % (42.0-52.0); Hemoglobin 13.5 g/dL (14.0-18.0); Mean Corpuscular HGB Conc 32.1 g/dl (32-36); Mean Corpuscular Hemoglobin 28.1 pg (26-34); Mean Corpuscular Volume 87.7 fl (80-100); Mean Platelet Volume 10.3 fl (7.4-10.4); Platelet Count Result 365 k/mm3 (150-375); Red Cell Distribution Width 13.9 % (11.5-14.5); White Blood Count 5.3 K/mm3 (4.5-10.0)
[2022-04-14 06:54] LABS: Anion Gap 8 mmol/L (8-16); Blood Urea Nitrogen 11 mg/dL (9-20); Calcium 9.3 mg/dL (8.4-10.2); Carbon Dioxide 26 mmol/L (22-30); Chloride 101 mmol/L (98-107); Estimated CRCL calculation 142 ml/min; Estimated Glomerular Filt Rate > 60; Glucose 133 mg/dL (65-110); Magnesium 1.7 mg/dL (1.6-2.3); Potassium 4.9 mmol/L (3.4-5.0); Sodium 135 mmol/L (137-145)
[2022-04-14 08:17] LABS: Glucose Point of Care 139 mg/dl (65-105)
[2022-04-14] MEDS: ATORVASTATIN 10 MG TABLET PO (08:31)
[2022-04-14] MEDS: ENOXAPARIN 40 MG/0.4 ML SYRINGE SUB-Q (08:31)
[2022-04-14] MEDS: SERTRALINE HCL 50 MG TABLET 100 MG PO ×2 (08:32→18:26)
[2022-04-14] MEDS: MAGNESIUM OXIDE 400 MG TABLET PO (08:32)
[2022-04-14] MEDS: PANTOPRAZOLE 40 MG TABLET PO (08:32)
[2022-04-14 08:50] LABS: Glucose Point of Care 184 mg/dl (65-105)
--- NOTE | 2022-04-14 10:44 | PC.NURSE ---
Spoke with Dr. Cottrell regarding patients blood sugar and scheduled insulin doses. okayed to give AM insulin scheduled doses.
[2022-04-14 11:20] LABS: Glucose Point of Care 295 mg/dl (65-105)
--- NOTE | 2022-04-14 13:12 | PM.IMPN ---
Progress Note: A&P Assessment and Plan (1) Hyperglycemia: Code(s): R73.9 - Hyperglycemia, unspecified Status: Acute Assessment and Plan: Blood sugar was over 600 on arrival to the ED Patient reports monitoring with Agnieszka continuous glucose monitor and states that blood sugars had been well controlled. However, A1c is >14% Blood sugars have improved following rehydration and appropriate insulin regimen He has been seen in consultation by mend worker. Continue 40 units NovoLog mix with breakfast and 20 units with dinner Accu-Cheks, sliding scale insulin, hypoglycemic protocol Monitor glucose trends (2) Insulin dependent type 2 diabetes mellitus: Code(s): E11.9 - Type 2 diabetes mellitus without complications; Z79.4 - [facility] (current) use of insulin Status: Acute Assessment and Plan: A1c is >14.0 Insulin regimen as described above (3) Hyponatremia: Code(s): E87.1 - Hypo-osmolality and hyponatremia Status: Acute Assessment and Plan: Pseudo hyponatremia secondary to hyperglycemia. Resolved. Sodium 136 today (4) Generalized weakness: Code(s): R53.1 - Weakness Status: Acute Assessment and Plan: Likely secondary to dehydration and hyperglycemia in addition to chronic deconditioning. Appreciate PT/OT evaluation SNF has been recommended. Awaiting accepting facility. Appreciate care coordination following (5) Chronic anemia: Code(s): D64.9 - Anemia, unspecified Status: Acute Assessment and Plan: Stable on review of previous labs. (6) Hypertension: Code(s): I10 - Essential (primary) hypertension Status: Acute Assessment and Plan: Blood pressures reviewed today and have been well controlled Patient does not appear to be on antihypertensives Monitor BP trends (7) Hypothyroidism: Code(s): E03.9 - Hypothyroidism, unspecified Status: Acute Assessment and Plan: TSH slightly elevated at 5. T4 is normal Continue levothyroxine. Will need repeat TSH with reflex as an outpatient in 4-6 weeks Subjective Date/time seen: 04/14/22 13:12 No complaints Exam Narrative: General: Obese, well-appearing 46-year-old male, supine in bed, comfortable, NARD Neuro: awake, alert and oriented x4, speech clear, no focal neuro deficits noted HEENMT: normocephalic, atraumatic, EOMI, sclerae anicteric, moist oral mucosa Respiratory: clear to auscultation bilaterally, nonlabored breathing Cardio: regular rate, regular rhythm with S1-S2 Abdomen: obese abdomen, normoactive bowel sounds, soft, nontender to palpation Skin: no rashes or lesions, warm and dry Psych: appropriate mood and affect, judgment and insight intact Objective Data Vital Signs Vital Signs: Vital Signs - 24 hr 04/13/22 14:00 04/13/22 21:46 04/13/22 20:00 Temperature 96.7 F L 97.9 F Pulse Rate 102 H 87 87 Respiratory Rate 20 16 16 Blood Pressure 113/48 L 148/81 H Pulse Oximetry 96 95 95 Oxygen Delivery Room Air 04/14/22 05:10 04/14/22 05:10 04/14/22 05:10 Temperature 97.7 F 97.7 F Pulse Rate 93 93 Respiratory Rate 20 20 Blood Pressure 165/78 H 147/81 H 147/81 H Pulse Oximetry 98 98 Oxygen Delivery 04/14/22 05:13 04/14/22 05:16 04/14/22 08:00 Temperature Pulse Rate Respiratory Rate Blood Pressure 124/73 113/70 Pulse Oximetry Oxygen Delivery Room Air 04/14/22 08:00 04/14/22 10:02 04/14/22 10:02 Temperature Pulse Rate Respiratory Rate Blood Pressure 109/74 111/72 118/69 Pulse Oximetry Oxygen Delivery Intake/Output Intake/Output: Intake & Output 04/11/22 04/12/22 04/13/22 04/14/22 23:59 23:59 23:59 23:59 Intake Total 2640 2770 1520 540 Output Total 0 Balance 2640 2770 1520 540 Meds/Results Medications: Active Medications Generic Name Dose Route Start Last Admin Trade Name Freq PRN Reason Stop Dose Admi
[2022-04-14 14:01] LABS: Glucose Point of Care 220 mg/dl (65-105)
[2022-04-14] MEDS: INSULIN ASPART (*BKC) 100 UNITS/ML SUB-Q (14:02)
[2022-04-14 18:07] LABS: Glucose Point of Care 111 mg/dl (65-105)
[2022-04-14 18:23] LABS: Glucose Point of Care 234 mg/dl (65-105)
[2022-04-14 20:01] LABS: Glucose Point of Care 301 mg/dl (65-105)
[2022-04-15 06:00] VITALS: BP 121/60; PULSE 84; RESP 16; TEMP 36.9; O2SAT 98
[2022-04-15 06:49] LABS: Hematocrit 39.5 % (42.0-52.0); Hemoglobin 12.6 g/dL (14.0-18.0); Mean Corpuscular HGB Conc 31.9 g/dl (32-36); Mean Corpuscular Hemoglobin 27.7 pg (26-34); Mean Corpuscular Volume 86.8 fl (80-100); Mean Platelet Volume 10.2 fl (7.4-10.4); Platelet Count Result 324 k/mm3 (150-375); Red Blood Count 4.55 M/mm3 (4.6-6.20); Red Cell Distribution Width 13.7 % (11.5-14.5); White Blood Count 4.7 K/mm3 (4.5-10.0)
[2022-04-15 07:09] LABS: Anion Gap 8 mmol/L (8-16); Blood Urea Nitrogen 13 mg/dL (9-20); Calcium 8.8 mg/dL (8.4-10.2); Carbon Dioxide 26 mmol/L (22-30); Chloride 99 mmol/L (98-107); Estimated CRCL calculation 143 ml/min; Estimated Glomerular Filt Rate > 60; Glucose 220 mg/dL (65-110); Magnesium 1.8 mg/dL (1.6-2.3); Sodium 133 mmol/L (137-145)
[2022-04-15 08:03] LABS: Glucose Point of Care 232 mg/dl (65-105)
[2022-04-15] MEDS: ATORVASTATIN 10 MG TABLET PO (08:19)
[2022-04-15] MEDS: ENOXAPARIN 40 MG/0.4 ML SYRINGE SUB-Q (08:19)
[2022-04-15] MEDS: PANTOPRAZOLE 40 MG TABLET PO (08:20)
[2022-04-15] MEDS: MAGNESIUM OXIDE 400 MG TABLET PO (08:20)
[2022-04-15] MEDS: SERTRALINE HCL 50 MG TABLET 100 MG PO ×2 (08:20→17:00)
[2022-04-15] MEDS: INSULIN ASPART (*BKC) 100 UNITS/ML SUB-Q ×2 (08:28→11:49)
[2022-04-15 11:47] LABS: Glucose Point of Care 242 mg/dl (65-105)
--- NOTE | 2022-04-15 12:32 | PM.IMPN ---
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 Status: Acute (3) Hyponatremia: Code(s): E87.1 - Hypo-osmolality and hyponatremia Status: Acute (4) Generalized weakness: Code(s): R53.1 - Weakness Status: Acute (5) Chronic anemia: Code(s): D64.9 - Anemia, unspecified Status: Acute (6) Hypertension: Code(s): I10 - Essential (primary) hypertension Status: Acute (7) Hypothyroidism: Code(s): E03.9 - Hypothyroidism, unspecified Status: Acute Subjective Date/time seen: 04/15/22 12:32 No new complaints Exam Narrative: General: alert and oriented Psych: appropriate mood nad affect Eyes: PERRLA Neck: Trachea midline, no new lesions Skin: no changes Lungs: CTA Cardiac: Normal S1,S2, no MGR ABD: soft, nd, nt, nbs Ext: no new lesions, no cce Vasc: Pulses intact Objective Data Vital Signs Vital Signs: Vital Signs - 24 hr 04/14/22 14:00 04/14/22 20:00 04/14/22 19:58 Temperature 96.4 F L Pulse Rate 96 Respiratory Rate 32 H Blood Pressure 132/61 139/84 Pulse Oximetry 96 Oxygen Delivery Room Air 04/14/22 20:00 04/14/22 20:02 04/14/22 22:00 Temperature 97.1 F L Pulse Rate 76 Respiratory Rate 16 Blood Pressure 146/89 H 147/95 H 127/64 Pulse Oximetry 98 Oxygen Delivery 04/15/22 06:00 Temperature 98.5 F Pulse Rate 84 Respiratory Rate 16 Blood Pressure 121/60 Pulse Oximetry 98 Oxygen Delivery Intake/Output Intake/Output: Intake & Output 04/12/22 04/13/22 04/14/22 04/15/22 23:59 23:59 23:59 23:59 Intake Total 2770 1520 2500 370 Output Total 0 Balance 2770 1520 2500 370 Meds/Results Medications: Active Medications Generic Name Dose Route Start Last Admin Trade Name Freq PRN Reason Stop Dose Admin Atorvastatin Calcium 10 mg 04/10/22 09:00 04/15/22 08:19 Atorvastatin 10 Mg Tablet PO 10 mg DAILY NANDO Administration Dextrose 12.5 gm 04/09/22 20:51 Dextrose 50% 25 Gm/50 Ml Syringe IV PUSH PRN PRN Hypoglycemia Protocol Enoxaparin Sodium 40 mg 04/10/22 09:00 04/15/22 08:19 Enoxaparin 40 Mg/0.4 Ml Syringe SUB-Q 40 mg DAILY NANDO Administration Glucagon 1 mg 04/09/22 20:51 Glucagon For Inj 1 Mg Vial IM PRN PRN Hypoglycemia Protocol Glucose 15 gm 04/09/22 20:51 Glucose Oral Gel 15 Gm Of Glucse In 37.5 Gm Tube PO PRN PRN Hypoglycemia Protocol Home Med 0 each 04/10/22 09:00 04/15/22 10:19 Home Medication-Victoza SUB-Q 05/10/22 08:59 Not Given DAILY NANDO Dextrose 1,000 mls @ 100 mls/hr 04/09/22 20:51 Dextrose 5% 1,000 Ml IVPB PRN PRN Hypoglycemia Protocol Insulin Aspart 4 - 8 units 04/10/22 08:00 04/15/22 11:49 Insulin Aspart (*Bkc) 100 Units/Ml SUB-Q 4 units TIDWM NANDO Administration Protocol Insulin Aspart 20 units 04/12/22 18:00 04/14/22 18:24 Insuln Asp Prt/Insulin Aspart 100 Units/MlNovolog Mix(*Bkc) SUB-Q 20 units QPM NANDO Administration Insulin Aspart 30 units 04/14/22 08:00 04/15/22 08:27 Insuln Asp Prt/Insulin Aspart 100 Units/MlNovolog Mix(*Bkc) SUB-Q 30 units DAILY@0800 NANDO Administration Magnesium Oxide 400 mg 04/13/22 09:00 04/15/22 08:20 Magnesium Oxide 400 Mg Tablet PO 400 mg DAILY NANDO Administration Ondansetron HCl 4 mg 04/09/22 16:42 Ondansetron Inj 4 Mg/2 Ml Vial IV PUSH Q4H PRN Nausea Pantoprazole Sodium 40 mg 04/10/22 09:00 04/15/22 08:20 Pantoprazole 40 Mg Tablet PO 40 mg DAILY NANDO Administration Sertraline HCl 100 mg 04/10/22 09:00 04/15/22 08:20 Sertraline Hcl 50 Mg Tablet PO 100 mg BID NANDO Administration Radio
[2022-04-15 14:00] VITALS: BP 105/59; PULSE 88; RESP 19; TEMP 35.8; O2SAT 97
[2022-04-15 16:11] LABS: Glucose Point of Care 200 mg/dl (65-105)
[2022-04-15 19:46] LABS: Glucose Point of Care 256 mg/dl (65-105)
[2022-04-15 20:00] VITALS: BP 125/75; PULSE 85; RESP 16; TEMP 36.4; O2SAT 98
[2022-04-15 20:05] VITALS: BP 150/99; PULSE 98; RESP 20; TEMP 36.4; O2SAT 98
[2022-04-15 20:10] VITALS: BP 130/94; PULSE 95; RESP 18; TEMP 36.8; O2SAT 99
[2022-04-15 22:00] VITALS: BP 126/67; PULSE 87; RESP 19; TEMP 36.6; O2SAT 97
[2022-04-16 05:36] LABS: Hemoglobin 11.8 g/dL (14.0-18.0); Mean Corpuscular HGB Conc 31.9 g/dl (32-36); Mean Corpuscular Hemoglobin 28.1 pg (26-34); Mean Corpuscular Volume 88.1 fl (80-100); Mean Platelet Volume 10.3 fl (7.4-10.4); Platelet Count Result 302 k/mm3 (150-375); Red Cell Distribution Width 13.8 % (11.5-14.5); White Blood Count 5.2 K/mm3 (4.5-10.0)
[2022-04-16 05:49] LABS: Anion Gap 9 mmol/L (8-16); Blood Urea Nitrogen 18 mg/dL (9-20); Calcium 8.5 mg/dL (8.4-10.2); Carbon Dioxide 24 mmol/L (22-30); Chloride 101 mmol/L (98-107); Estimated CRCL calculation 127 ml/min; Estimated Glomerular Filt Rate > 60; Glucose 263 mg/dL (65-110); Magnesium 1.6 mg/dL (1.6-2.3); Potassium 4.4 mmol/L (3.4-5.0); Sodium 134 mmol/L (137-145)
[2022-04-16 06:00] VITALS: BP 127/74; PULSE 90; RESP 18; TEMP 37; O2SAT 99
[2022-04-16 08:00] VITALS: BP 113/68; PULSE 90; PULSE 92; RESP 18; RESP 20; TEMP 36; O2SAT 96; O2SAT 99
[2022-04-16 08:19] LABS: Glucose Point of Care 289 mg/dl (65-105)
[2022-04-16] MEDS: INSULIN ASPART (*BKC) 100 UNITS/ML SUB-Q ×2 (08:26→11:52)
[2022-04-16] MEDS: ENOXAPARIN 40 MG/0.4 ML SYRINGE SUB-Q (08:27)
[2022-04-16] MEDS: PANTOPRAZOLE 40 MG TABLET PO (08:28)
[2022-04-16] MEDS: MAGNESIUM OXIDE 400 MG TABLET PO (08:28)
[2022-04-16] MEDS: SERTRALINE HCL 50 MG TABLET 100 MG PO (08:28)
[2022-04-16] MEDS: ATORVASTATIN 10 MG TABLET PO (08:28)
[2022-04-16 10:00] VITALS: BP 108/64; PULSE 96; RESP 20; TEMP 36; O2SAT 98
--- NOTE | 2022-04-16 10:00 | PC.NURSE ---
informed Pt out of victoza 1.8 mg sq injection and will need more brought in
[2022-04-16 10:01] VITALS: BP 99/73; PULSE 96; RESP 22; TEMP 36; O2SAT 100
--- NOTE | 2022-04-16 10:19 | PC.NURSE ---
informed director of primary care pt out of Victoza SQ daily injections.
--- NOTE | 2022-04-16 10:20 | PC.NURSE ---
informed MD Cottrell pt out of Victoza Sq injection daily
--- NOTE | 2022-04-16 10:25 | PC.NURSE ---
Jerman Waite to transport pt to facility from hospital today once discharged.
--- NOTE | 2022-04-16 10:36 | PM.DS ---
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 He also has a history of hypertension hyperlipidemia [facility] and apparently some friends and kicked him out of his own dwelling. While at this motel he had become more weak and more frail and had some generalized weakness. apparently he was not getting Clements medications and he was admitted here with elevated blood sugars. Resumed his home meds with insulin and his blood sugars improved. Otherwise he is back to his baseline and can be discharged. Time Spent with Patient Time attestation: Total time spent providing and/or coordinating discharge services: Exam Narrative: General: alert and oriented Psych: appropriate mood nad affect Eyes: PERRLA Neck: Trachea midline, no new lesions Skin: no changes Lungs: CTA Cardiac: Normal S1,S2, no MGR ABD: soft, nd, nt, nbs Ext: no new lesions, no cce Vasc: Pulses intact DS: Data Data Completed and Pending Labs on day of discharge: Labs from last 24 hours 04/16/22 04/16/22 04/16/22 08:13 05:01 05:01 WBC 5.2 RBC 4.20 L Hgb 11.8 L Hct 37.0 L MCV 88.1 MCH 28.1 MCHC 31.9 L RDW 13.8 Plt Count 302 MPV 10.3 Sodium 134 L Potassium 4.4 Chloride 101 Carbon Dioxide 24 Anion Gap 9 BUN 18 Creatinine 0.80 Estim Creat Clear Calc 127 Estimated GFR > 60 Glucose 263 H POC Capillary Glucose 289 H Calcium 8.5 Magnesium 1.6 04/15/22 04/15/22 04/15/22 19:38 16:06 11:35 WBC RBC Hgb Hct MCV MCH MCHC RDW Plt Count MPV Sodium Potassium Chloride Carbon Dioxide Anion Gap BUN Creatinine Estim Creat Clear Calc Estimated GFR Glucose POC Capillary Glucose 256 H 200 H 242 H Calcium Magnesium Discharge Plan Discharge Attending physician on discharge: Ronny Cottrell Discharging Clinician: Ronny Cottrell Patient Disposition: Home, Self-Care Activity: no preference Diet: as tolerated Patient Instructions: Antibiotic Form, How to Stop Smoking (DC), Pain Management (DC), How to Quit Using Smokeless Tobacco (DC) Stand Alone Forms: General Discharge Information Follow-up/Referrals: PHYSICIAN NOT ON STAFF,NONSTAFF [Primary Care Provider] - Discharge Medications: Continued naproxen 500 mg Tablet 500 mg PO BID Victoza 3-Ben 0.6 mg/0.1 mL (18 mg/3 mL) pen injector 1.8 mg SUBCUT DAILY furosemide 40 mg tablet 20 mg PO BID PRN (Reason: Edema) Rx Instructions: take 20mg by mouth in the morning and 20mg in the afternoon as needed if swelling atorvastatin 10 mg tablet 10 mg PO DAILY sertraline 100 mg tablet 100 mg PO BID Rx Instructions: take one tablet by mouth twice daily in the morning and in the evening pantoprazole 40 mg tablet,delayed release (DR/EC) 40 mg PO DAILY insulin asp prt-insulin aspart [Novol
--- NOTE | 2022-04-16 11:10 | PC.NURSE ---
covid swab sent to lab for analysis
[2022-04-16 11:26] LABS: EDCOVIDSCREEN Negative (Negative)
[2022-04-16 11:46] LABS: Glucose Point of Care 358 mg/dl (65-105)
--- NOTE | 2022-04-16 13:19 | PC.NURSE ---
per critical care physician assistant, mery cooper to mixing picker tender pt at 1500. Pt to be picked up in front lobby at 1500, kavitha Botello informed to have pt ready at 1500.
--- NOTE | 2022-04-16 13:40 | PC.NURSE ---
called report to [facility] Maria Elena Galindo. Unable to get ahold of facility.
[2022-04-16 14:00] VITALS: BP 138/70; PULSE 97; RESP 20; TEMP 36.1; O2SAT 100
--- NOTE | 2022-04-16 14:06 | PC.NURSE ---
report given to Maira at [facility]
--- NOTE | 2022-04-16 14:42 | PC.NURSE ---
pt taken to front lobby for filler picker from [facility].
--- NOTE | 2022-04-16 14:45 | PC.NURSE ---
[facility] per career and technology education teacher
[2022-05-03 13:31] LABS: Reference Lab Test Result >14.0%
== END 2022-04-16 15:00 | disposition other institution (70) ==
LOC: ANHED 16:26 → ANH3MEDSUR 20:33
PROVIDERS: Chiropractor; Emergency Medicine; Family Medicine; Physician Assistant; Admitting Provider Internal Medicine; Emergency Provider Nurse Practitioner Family; Visit Provider Physician Assistant
DX: E11.65 Type 2 diabetes mellitus with hyperglycemia (principal); E87.1 Hypo-osmolality and hyponatremia; R53.1 Weakness; D64.9 Anemia, unspecified; I10 Essential (primary) hypertension; Z79.4 Long term (current) use of insulin; E03.9 Hypothyroidism, unspecified; K21.9 Gastro-esophageal reflux disease without esophagitis; E78.5 Hyperlipidemia, unspecified; G47.33 Obstructive sleep apnea (adult) (pediatric); E66.01 Morbid (severe) obesity due to excess calories; Z68.42 Body mass index [BMI] 45.0-49.9, adult; F17.220 Nicotine dependence, chewing tobacco, uncomplicated; Z20.822 Contact with and (suspected) exposure to COVID-19
CPT/HCPCS: 36415; 36600; 71046; 80048; 80053; 81001; 82805; 82948; 83036; 83735; 83880; 84439; 84443; 84484; 85025; 85027; 87426; 93005; 96360; 96361; 97110; 97116; 97161; 97165; 99285; A9270; C9803; G0378; J1650; J1815; J7030

== ENCOUNTER 2023-01-13 20:00 | Observation (INO) | payer MEDICARE, MEDICAID, SELFPAY ==
--- NOTE | ~2023-01-13 | XR_ITS ---
EXAMINATION: XR chest 1V portable DATE: 01/13/2023 20:31 INDICATION: Cough and shortness of breath. Chest congestion. TECHNIQUE: A single frontal view of the chest was obtained. COMPARISON: Chest 2 views 04/09/2022, chest CT 08/16/2019 FINDINGS: Obesity decreases sensitivity and specificity. There are mild airspace opacities in the per ihilar regions. No pleural effusion or pneumothorax. The heart size is normal. IMPRESSION: 1. Mild airspace opacities in the perihilar regions, consistent with pneumonia versus mild pulmonary edema versus atelectasis. Reviewed, dictated and finalized at location E.
[2023-01-13 20:11] LABS: Glucose Point of Care > 450 mg/dl (65-105)
[2023-01-13 20:14] VITALS: BP 140/87; PULSE 100; RESP 20; TEMP 37; O2SAT 95
[2023-01-13 20:29] VITALS: RESP 20; O2SAT 95
[2023-01-13 20:45] LABS: Basophils Absolute Auto 0.05 K/mm3 (0.00-0.10); Basophils Percent Auto 0.8 % (0.0-1.0); Eosinophils Absolute Auto 0.04 K/mm3 (0.02-0.50); Eosinophils Percent Auto 0.6 % (1.0-6.0); Hematocrit 35.6 % (40.0-54.0); Hemoglobin 11.8 g/dL (14.0-18.0); Immature Granulocyte Absolute 0.02 K/mm3 (0.00-0.00); Immature Granulocyte Percent A 0.3 % (0.0-0.0); Lymphocytes Absolute Auto 1.35 K/mm3 (1.10-4.50); Lymphocytes Percent Auto 20.8 % (18.0-42.0); Mean Corpuscular HGB Conc 33.1 g/dL (32.0-36.0); Mean Corpuscular Hemoglobin 28.1 pg (27.0-31.0); Mean Corpuscular Volume 84.8 fL (78.0-102.0); Mean Platelet Volume 10.6 fl (8.7-11.0); Monocytes Percent Auto 6.2 % (2.0-11.0); Neutrophils Absolute Auto 4.6 K/mm3 (1.7-7.2); Neutrophils Percent Auto 71.3 % (50.0-70.0); Platelet Count Result 382 K/mm3 (150-420); Red Cell Distribution Width 13.5 % (11.6-14.4); White Blood Count 6.5 K/mm3 (4.8-10.8)
[2023-01-13 20:46] LABS: Appearance Urine Clear (Clear); Bilirubin Urine Negative (Negative); Blood Urine 1+ (Negative); Color Urine Light Yellow (Yellow); Glucose Urine UA 3+ (Negative); Ketones Urine Negative (Negative); Leukocyte Esterase Ur Negative LEU/UL (Negative); Nitrate Urine Negative (Negative); Protein Urine Trace (Negative); Specific Grav Ur <= 1.005 (1.010-1.020); Urobilinogen Urine 0.2 mg/dL (0.2-1.0)
[2023-01-13] MEDS: SODIUM CHLORIDE 0.9% IV 1,000 ML 999 ML IV CONT (20:47)
[2023-01-13 20:51] LABS: Add Urine Microscopic? YES
[2023-01-13 20:52] LABS: Amorphous Sediment Urine Few; Squamous Epithelial Cell Urine Occasional /hpf (Few)
[2023-01-13 21:00] VITALS: BP 142/90; PULSE 92; RESP 20; O2SAT 95
[2023-01-13 21:02] LABS: Lactic Acid Reflex 1.3 mmol/L (0.4-2.0)
[2023-01-13 21:05] LABS: Alanine Aminotransferase 19 U/L (16-63); Albumin Level 3.2 g/dL (3.4-5.0); Alkaline Phosphatase 118 U/L (46-116); Anion Gap 10 mmol/L (8-16); Aspartate Amino Transferase 14 U/L (15-37); Bilirubin,Total 0.2 mg/dL (0.00-1.00); Blood Urea Nitrogen 11 mg/dL (7-18); Calcium 8.9 mg/dL (8.5-10.1); Carbon Dioxide 28 mmol/L (21-32); Chloride 93 mmol/L (98-108); Estimated CRCL calculation 84 ml/min; Estimated Glomerular Filt Rate > 60; Magnesium 1.7 mg/dL (1.8-2.4); Phosphorus 3.6 mg/dL (2.6-4.7); Potassium 3.9 mmol/L (3.5-5.1); Sodium 131 mmol/L (136-145); Total Protein 7.9 g/dL (6.4-8.2)
[2023-01-13 21:08] LABS: Glucose 606 mg/dL (70-99); Osmolality Calculated 299 mOsm/kg (285-295)
[2023-01-13] MEDS: INSULIN HUMAN REGULAR (*BKC) 1,000 UNITS/10 ML VIAL 11 UNITS IV PUSH (21:15)
--- NOTE | 2023-01-13 21:26 | ED.GENADULT ---
HPI - General Adult General Chief complaint: Unspecified Stated complaint: cough Time Seen by Provider: 01/13/23 20:07 Source: patient and EMS Mode of arrival: ambulatory Limitations: no limitations History of Present Illness HPI narrative: this is a 47-year-old male that presents from [facility] care in [place] brought in by EMS at the request of the patient, the patient was a prior resident of [facility] and wanted to be brought to start on ER. The patient has been noncompliant with his medications has not been taking his insulin R his bipolar medication. The patient current vitals are stable O2 sats 95% on room air he is afebrile does have a mild cough with congestion no audible wheezing no chest pain no abdominal pain no flank pain no dysuria. Onset (ago): day(s) Severity: moderate Related Data Home Medications Medication Instructions Recorded Confirmed atorvastatin 10 mg tablet 10 mg PO DAILY 04/09/22 01/13/23 furosemide 40 mg tablet 20 mg PO BID PRN Edema 04/09/22 01/13/23 insulin aspar prot-insulin aspart 30 unit subcut QAM 04/09/22 01/13/23 100 unit/mL (70-30) subcutaneous pen (Novolog Mix 70-30FlexPen U-100) liraglutide 0.6 mg/0.1 mL (18 mg/3 1.8 mg subcut DAILY 04/09/22 01/13/23 mL) subcutaneous pen injector (Victoza 3-Ben) naproxen 500 mg tablet 500 mg PO BID 04/09/22 01/13/23 pantoprazole 40 mg tablet,delayed 40 mg PO DAILY 04/09/22 01/13/23 release sertraline 100 mg tablet 100 mg PO BID 04/09/22 01/13/23 Allergies Allergy/AdvReac Type Severity Reaction Status Date / Time No Known Allergies Allergy Verified 04/09/22 14:57 Review of Systems Review of Systems: All systems reviewed & are unremarkable except as noted in HPI and below PMFSH Past Medical History Medical History Amblyopia Chronic anemia Depression Gastroesophageal reflux disease Hyperlipidemia Hypertension Hypothyroidism Insulin dependent type 2 diabetes mellitus Morbid obesity Obstructive sleep apnea Surgical History Surgical History History of eye surgery For correction of amblyopia. 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 Code status: Full code. Smoking status: Current every day smoker Tobacco type: smokeless tobacco Smokeless tobacco user: chewing tobacco Second hand tobacco smoke exposure: No Additional smoking assessment comments: started chewing tobaco 2007,uses 1 can per week,before that smoked cigares Alcohol intake: never Substance use: never Substance use type: does not use Additional living arrangements comments: Currently staying at a motel looking for different apartment. Parents are . One sister who lives in a care home. Additional occupation/education comments: On disability. Spiritual care concerns: No Agree to blood products: Yes Exam Const: General: cooperative, healthy appearing, comfortable, no acute distress and well developed HENMT: Head: normal to inspection Eyes: General: appearance normal, both eyes and all related structures Visual Mcarthur: normal visual mcarthur by confrontation Eyelids: eyelids normal Neck: Neck: normal visual inspection, full ROM and no lymphadenopathy Chest: Chest palpation & inspection: normal inspection of the chest and normal palpation of entire chest wall Resp: Effort & Inspection: normal respiratory effort Cardio: Jugular venous distension: no JVD Palpation: normal PMI Rate: regular rate Rhythm: regular rhythm GI: I
[2023-01-13 21:36] LABS: Glucose Point of Care 433 mg/dl (65-105)
[2023-01-13 22:00] VITALS: BP 139/88; PULSE 98; RESP 20; TEMP 37.2; O2SAT 95
[2023-01-13] MEDS: AZITHROMYCIN 500 MG/NS 250 ML 500 MG/250 ML BAG 250 MG IVPB (22:01)
[2023-01-13 22:55] LABS: Glucose Point of Care 371 mg/dl (65-105)
[2023-01-13 23:09] VITALS: BP 140/90; PULSE 100; RESP 20; TEMP 37.2; O2SAT 95
[2023-01-13 23:15] VITALS: BMI 51.0
--- NOTE | 2023-01-13 23:15 | ADMGEN ---
This patient, Ronny Westbrook, was admitted to 2nd Floor Room 208-1. Patient/family oriented to hospital policies and general routines including ID bracelet, bed and alarms, visiting hours, pain management, procedures, bathroom and other care routines, personal items, smoking policy, room service/diet, and visiting hours. Information on how to activate the Rapid Response Team has been discussed. Patient/Family are encouraged to report perceived risks to care and to ask questions if they do not understand what they are told or what they should do.
[2023-01-13 23:49] LABS: Glucose Point of Care 444 mg/dl (65-105)
[2023-01-14 00:02] LABS: Hemoglobin A1C > 14.0 % (<5.7)
[2023-01-14] MEDS: INSULIN HUMAN LISPRO (*BKC) 1,000 UNITS/10 ML VIAL 18 UNITS SUB-Q (00:09)
--- NOTE | 2023-01-14 00:25 | PC.NURSE ---
Attempted to clarify insulin with patient, patient states he takes 20 units in the morning and 30 units in the evening, is unsure what insulin he is on, states might be Lantus or Novolog, states he takes a Light blue pen in the morning and dark blue pen in the evening, also states he takes 8units of Victoza in the morning.
[2023-01-14 00:30] VITALS: PULSE 100; RESP 20; O2SAT 96
[2023-01-14 02:11] LABS: Glucose Point of Care 185 mg/dl (65-105)
[2023-01-14 04:03] LABS: Glucose Point of Care 144 mg/dl (65-105)
[2023-01-14 05:33] LABS: Hematocrit 31.7 % (40.0-54.0); Hemoglobin 10.6 g/dL (14.0-18.0); Mean Corpuscular HGB Conc 33.4 g/dL (32.0-36.0); Mean Corpuscular Hemoglobin 28.3 pg (27.0-31.0); Mean Corpuscular Volume 84.5 fL (78.0-102.0); Mean Platelet Volume 10.4 fl (8.7-11.0); Platelet Count Result 345 K/mm3 (150-420); Red Blood Count 3.75 M/mm3 (4.70-6.10); Red Cell Distribution Width 13.5 % (11.6-14.4); White Blood Count 5.4 K/mm3 (4.8-10.8)
[2023-01-14 05:44] LABS: Anion Gap 8 mmol/L (8-16); Blood Urea Nitrogen 8 mg/dL (7-18); Calcium 8.4 mg/dL (8.5-10.1); Carbon Dioxide 28 mmol/L (21-32); Chloride 104 mmol/L (98-108); Estimated CRCL calculation 141 ml/min; Estimated Glomerular Filt Rate > 60; Glucose 143 mg/dL (70-99); Osmolality Calculated 290 mOsm/kg (285-295); Potassium 3.5 mmol/L (3.5-5.1); Sodium 140 mmol/L (136-145)
[2023-01-14 06:00] VITALS: BP 142/77; PULSE 100; RESP 20; TEMP 36.3; O2SAT 96
[2023-01-14 07:48] LABS: Glucose Point of Care 177 mg/dl (65-105)
[2023-01-14 07:58] VITALS: BP 110/62; PULSE 91; RESP 14; TEMP 36.2; O2SAT 95
[2023-01-14] MEDS: ENOXAPARIN 40 MG/0.4 ML SYRINGE SUB-Q (08:53)
[2023-01-14] MEDS: INSULIN ASPART MIX 30 UNITS SUB-Q (08:53)
[2023-01-14] MEDS: PANTOPRAZOLE 40 MG TABLET PO (08:54)
[2023-01-14] MEDS: SERTRALINE HCL 50 MG TABLET 100 MG PO (08:54)
[2023-01-14] MEDS: ATORVASTATIN 10 MG TABLET PO (08:54)
[2023-01-14] MEDS: FUROSEMIDE 20 MG TABLET PO (09:37)
[2023-01-14] MEDS: FUROSEMIDE INJ 40 MG/4 ML VIAL IV PUSH (09:41)
--- NOTE | 2023-01-14 10:58 | PM.IMHP ---
H&P: HPI History of Present Illness Date/Time: 01/14/23 10:58 Chief Complaint: cough Narrative: this is a 47-year-old male who presented to our emergency department from a snf because he had not taken his medications since the 1st week of December. Patient has a past medical history chronic anemia, depression, GERD, hyperlipidemia, hypertension, hypothyroidism, type 2 diabetes, sleep apnea and morbidly obese. According to patient he was originally living in a skilled nursing and when he left the skilled nursing he was given a couple of days of medication but notes that he has not taking his medications since the 1st week in December. Patient notes that while he was a snf they called EMS to transport him to our merged department because he did not have any medication. patient notes that he did not even have his Accu-Chek machine nor insulin patient blood sugar was 606 on admission his imaging show pneumonia or pulmonary edema due to him being noncompliant with his Lasix. patient did admit to some wheezing and shortness of breath occasionally with a cough nonproductive.today patient will discharge he will be given prescription medication for 3 months and instructed to follow-up with his primary care physician. The patient denies SOB, CP, palpitation, extremity numbness, lightheadedness, dizziness, constipation, diarrhea, chills, or fever. Review of Systems Review of Systems: All systems reviewed & are unremarkable except as noted in HPI and below PMFSH Past Medical History Medical History Amblyopia Chronic anemia Depression Gastroesophageal reflux disease Hyperlipidemia Hypertension Hypothyroidism Insulin dependent type 2 diabetes mellitus Morbid obesity Obstructive sleep apnea Surgical History Surgical History History of eye surgery For correction of amblyopia. 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 Code status: Full code. Smoking status: Current every day smoker Tobacco type: cigars and smokeless tobacco Smokeless tobacco user: chewing tobacco Second hand tobacco smoke exposure: No Additional smoking assessment comments: started chewing tobaco 2007,uses 1 can per week,before that smoked cigares Alcohol intake: former Substance use: former Substance use type: does not use Lack of Transportation: YES Lack of Food: Often True Current Housing: I Do Not Have Housing Concerned About Future Housing: YES Difficulty Paying Gas/Electric Bills: YES Difficulty Paying for Meds: YES Currently Unemployed: YES Education: Grade School Difficulty w/ Childcare or Family Care: No Additional living arrangements comments: Currently staying at a motel looking for different apartment. Parents are . One sister who lives in a skilled nursing. Additional occupation/education comments: On disability. Spiritual care concerns: No Agree to blood products: Yes Meds Home Medications and Allergies Home Medications Medication Instructions Recorded Confirmed Type albuterol sulfate 90 mcg/actuation 2 puff inhalation QID PRN 01/14/23 Rx aerosol inhaler shortness of breath or wheezing #6.7 grams atorvastatin 10 mg tablet 10 mg PO DAILY #30 tabs 01/14/23 Rx azithromycin 500 mg tablet 500 mg PO DAILY 10 days #10 tabs 01/14/23 Rx benzonatate 200 mg capsule 200 mg PO BID 10 days #20 caps 01/14/23 Rx blood sugar diagnostic #100 strips 01/14/23 Rx blood-glucose meter (Blood Glucose #1 ea 01/14/23 Rx Monitoring kit) fur
--- NOTE | 2023-01-14 11:23 | PC.NURSE ---
Pt discharged to self care. RN instructed pt regarding his medications and when to take them. Pt given printed prescriptions to take to the pharmacy of his choice. VSS. Pt AOx3. RN took pt to the car via WC and helped him inside.
--- NOTE | 2023-01-19 12:45 | PC.NURSE ---
Unable to contact for discharge call back.
== END 2023-01-14 11:10 | disposition home or self-care (01) ==
LOC: CHSED 22:53 → CHS2ND 22:56
PROVIDERS: Nurse Practitioner Family; Admitting Provider Internal Medicine; Emergency Provider Emergency Medicine; Visit Provider Internal Medicine
DX: J18.9 Pneumonia, unspecified organism (principal); E87.1 Hypo-osmolality and hyponatremia; E11.65 Type 2 diabetes mellitus with hyperglycemia; I10 Essential (primary) hypertension; D64.9 Anemia, unspecified; E78.5 Hyperlipidemia, unspecified; E03.9 Hypothyroidism, unspecified; E66.01 Morbid (severe) obesity due to excess calories; K21.9 Gastro-esophageal reflux disease without esophagitis; G47.33 Obstructive sleep apnea (adult) (pediatric); F32.A Depression, unspecified; F17.290 Nicotine dependence, other tobacco product, uncomplicated; F17.220 Nicotine dependence, chewing tobacco, uncomplicated; Z79.4 Long term (current) use of insulin
CPT/HCPCS: 36415; 71045; 80048; 80053; 81001; 82948; 83036; 83605; 83735; 84100; 85025; 85027; 87040; 96361; 96365; 96367; 96375; 99285; A9270; G0378; J0456; J0696; J1650; J1815; J1940; J7030

== ENCOUNTER 2023-03-04 09:40 | Outpatient (CLI) | payer MEDICARE, MEDICAID, SELFPAY | END 2023-03-04 09:41 | disposition home or self-care (01) | LOC: ANHAUDIO 09:41 | PROVIDERS: PCP Family Medicine; Visit Provider Family Medicine | DX: Z01.10 Encounter for examination of ears and hearing without abnormal findings (principal) | CPT/HCPCS: 92557; 92567 ==

== ENCOUNTER 2024-03-06 09:19 | Outpatient (CLI) | payer MEDICARE, MEDICAID, SELFPAY | END 2024-03-06 09:20 | disposition home or self-care (01) | LOC: ANHAUDIO 09:20 | PROVIDERS: PCP Family Medicine; Visit Provider Family Medicine | DX: Z01.10 Encounter for examination of ears and hearing without abnormal findings (principal); H90.3 Sensorineural hearing loss, bilateral; H61.23 Impacted cerumen, bilateral | CPT/HCPCS: 92557; 92567 ==

== ENCOUNTER 2025-03-07 08:48 | Outpatient (CLI) | payer MEDICARE, MEDICAID, SELFPAY ==
--- OUTSIDE RECORDS SUMMARY | 2025-03-07 08:51 | XMS_ITS ---
Author Organization Unknown Address [address] [place] [phone] Phone Care Team Providers Care Sleeve Ironer Name Role Phone RASHIDA Maravilla CATHLEEN Attending Unavailable VICKY Arias Primary Unavailable Immunization Immunization Date Status Additional Notes Code Code System pneumococcal polysaccharide PPV23 03/30/2021 Completed 33 CVX Tdap 03/14/2023 Completed 115 CVX Tdap 04/21/2023 Completed 115 CVX Tdap 10/26/2023 Completed 115 CVX Influenza, split virus, trivalent, PF 08/23/2013 Completed 140 CVX Influenza, split virus, trivalent, preservative 05/02/2024 Completed 141 CVX Influenza, split virus, quadrivalent, PF 05/30/2022 Completed 150 CVX Influenza, split virus, quadrivalent, preservative 04/27/2023 Completed 158 C VX COVID-19, mRNA, LNP-S, PF, 1 00 mcg/0.5mL dose or 50 mcg/0.25mL dose 12/16/2020 Completed 207 CVX COVID-19, mRNA, LNP-S, PF, 1 00 mcg/0.5mL dose or 50 mcg/0.25mL dose 01/13/2021 Completed 207 CVX COVID-19, mRNA, LNP-S, PF, elba-sucrose, 30 mcg/0.3 mL 10/17/2023 Completed 309 CVX Results SARS COV2 PCR - Collect Date /Time: 08/23/2023 21:45 [facility] ID: [id number] [address] [place], [place], [id number] LOINC: 81095-1 Test Value Unit Reference Range Code Code System Flag SARS COV2 PCR NEGATIVE 74606-0 LOINC SENT TO [facility] RN? YES A MAGNESIUM - Collect Date/Chang e: 08/23/2023 21:18 [facility] ID: [id number] [address] [place], [place], [address] LOINC: 17349-9 Test Value Unit Reference Range Code Code System Flag MAGNESIUM 1.8 mg/dL L=1.6 H=2.3 08859-5 LOINC OD [id number] YLATE-ETOH - Collect Date/Time: 08/23/2023 21:18 [facility] ID: [id number] [address] [place], [place], [id number] LOINC: Test Value Unit Reference Range Code Code System Flag ACETAMINOPHEN < 10 ug/dL L=0 H=10 3298-7 LOINC SALICYLATE < 1 mg/dL L=0 H=5 4024-6 LOINC ALCOHOL < 10.00 mg/dL L=0.00 H=50.00 5643-2 LOINC LIVER PROFILE - Collect Date /Time: 08/23/2023 21:18 [facility] ID: [id number] [address] [place] [address], [id number] LOINC: 98783-6 Test Value Unit Reference Range Code Code System Flag ALT 24 U/L L=9 H=72 1742-6 LOINC AST 45 U/L L=15 H=46 1920-8 LOINC ALKALINE PHOS 95 U/L L=38 H=126 6768-6 LOINC TOTAL PROTEIN 7.8 g/L L=6.3 H=8.2 2885-2 LOINC TOTAL BILI 0.2 mg/dL L=0.2 H=1.3 1975-2 LOINC DIRECT BILI 0.0 mg/dL L=0.0 H=0.3 1967-7 LOINC INDIRECT BILI 0.10 mg/dL L=0.00 H=1.10 1970-1 LOINC ALBUMIN 4.2 G/dL L=3.5 H=5.0 1751-7 LOINC BASIC METABOLIC PANEL - Gladys ect Date/Time: 08/23/2023 21:18 [facility] ID: [id number] [address] [place], [place], [address] LOINC: 98441-3 Test Value Unit Reference Range Code Code System Flag FASTING UNKNOWN BUN 22 mg/dL L=7 H=20 3094-0 LOINC H CREATININE 0.90 mg/dL L=0.66 H=1.25 2160-0 LOINC GLUCOSE 128 mg/dL L=74 H=106 2345-7 LOINC H CALCIUM 9.1 mg/dL L=8.3 H=10.5 18127-6 LOINC SODIUM 135 mmol/L L=132 H=144 2951-2 LOINC POTASSIUM 4.2 mmol/L L=3.5 H=5.1 2823-3 LOINC CHLORIDE 104 mmol/L L=98 H=107 2075-0 LOINC CO2 22.0 mmol/L L=22.0 H=30.0 8-9 LOINC ANION GAP 13 L=10 H=20 50225-5 LOINC BUN/CREAT 24.4 3097-3 LOINC AGE 47 54433-5 LOINC eGFR NON-AFR 97 ml/min eGFR AFR AMER 117 ml/min CBC W/ DIFF - Collect Date/T zoila: 08/23/2023 21:18 [facility] ID: [id number] [address] [place] [address], [id number] LOINC: 95068-6 Test Value Unit Reference Range Code Code System Flag WBC 5.0 10^3uL L=4.8 H=10.8 RBC 4.05 10^6uL L=4.60 H=6.20 L HEMOGLOBIN 10.9 g/dL L=14.0 H=18.0 718-7 LOINC L HEMATOCRIT 34.1 VOL% L=42.0 H=52.0 4544-3 LOINC L MCV 84.2 fL L=80.0 H=94.0 MCH 26.9 pg L=27.0 H=32.0 L MCHC 32.0 g/dL L=32.0 H=36.0 PLATELETS 293 10^3uL L=100 H=400 35262-1 LOINC RDW 13.4 % L=11.7 H=15.5 %GRAN 57.8 % L=40.0 H=70.0 08912-3 LOINC %LYMPH 32.3 % L=20.0 H=45.0 736-9 LOINC %MONO 8.3 % L=2.0 H=10.0 88877-2 LOINC %EOS 0.6 % L=0.0 H=6.0 713-8 LOINC %BASO 0.8 % L=0.0 H=3.0 706-2 LOINC #NEUT 2.9 10^3uL L=1.9 H=7.6 67611-5 LOINC #LYMPH 1.6 10^3uL L=0.9 H=4.9 94348-2 LOINC #MONO 0.4 10^3uL L=0.1 H=0.9 96746-3 LOINC #EOS 0.0 10^3uL L=0.0 H=0.6 712-0 LOINC #BASO 0.04 10^3uL L=0.00 H=0.10 90221-8 LOINC #IM GRANS 0.0 10^3uL L=0.0 H=7.0 35178-9 LOINC %IM GRANS 0.2 % L=0.0 H=5.0 35753-3 LOINC %NRB 0.0 L=0.0 H=0.2 98587-1 LOINC #NRB 0.000 L=0.000 H=0.012 78160-8 LOINC MANUAL DIFF NOT INDICATED RBC MORPH NOT INDICATED TSH - Collect Date/Time: 09/2023 21:18 [facility] ID: [id number] [address] [place], [place], [id number] LOINC: 65258-1 Test Value Unit Reference Range Code Code System Flag TSH. 6.960 uIU/L L=0.470 H=4.680 74746-9 LOINC H Social History Type Status Start Date End Date Code Code Syst em Smoking History Current every day smoker 028410405 SNOMED CT Sex Male Medications Medication Start Date End Date Route Frequency Dose Code Code System Medication Instructions Home Meds Albuterol Sulfate 0.09MG/1Actuation Inhalation Suspension 11/17/2023 Unknown INHALATION NEEDED EVERY 4 HOURS 1 unit(s) 5028200 RxNorm 1 EACH INHALATION NEEDED EVERY 4 HOURS Atorvastatin Calcium 10MG Oral Tablet 11/17/2023 Unknown ORAL ONCE A DAY 10 MILLIGRA MS 246001 RxNorm TAKE 10 MILLIGRAMS ORAL ONCE A DAY Levothyroxine 25MCG Oral Tablet 11/17/2023 Unknown ORAL ONCE A DAY 25 MCG 693039 RxNorm TAKE 25 MCG ORAL ONCE A DAY Lisinopril 2.5MG Oral Tablet 11/17/2023 Unknown ORAL ONCE A DAY 2.5 MILLIGRA MS 841294 RxNorm TAKE 2.5 MILLIGRAMS ORAL ONCE A DAY Lybalvi 10 MG-10 MG Oral Tablet 11/17/2023 Unknown ORAL ONCE A DAY 1 unit(s) 9317389 RxNorm TAKE 1 EACH ORAL ONCE A DAY Naproxen 500MG Oral Tablet 11/17/2023 Unknown ORAL NEEDED EVERY 12 HOURS 500 MILLIGRA MS 458633 RxNorm TAKE 500 MILLIGRAMS ORAL NEEDED EVERY 12 HOURS NovoLOG Mix 70/30 FlexPen 70U-30U/1ML Subcutaneous Suspension 11/17/2023 Unknown SUBCUTANEOU S TWICE A DAY 1 unit(s) 171740 RxNorm INJECT INTO 1 EACH SUBCUTANEOU S TWICE A DAY OXcarbazepine 300MG Oral Tablet 11/17/2023 Unknown ORAL TWICE A DAY 300 MILLIGRA MS 101802 RxNorm TAKE 300 MILLIGRAMS ORAL TWICE A DAY Pantoprazole Sodium 40 MG Oral Tablet, Delayed Release 11/17/2023 Unknown ORAL ONCE A DAY 40 MG 435353 RxNorm TAKE 40 MG ORAL ONCE A DAY Sertraline 100MG Oral Tablet 11/17/2023 Unknown ORAL ONCE A DAY 200 MILLIGRA MS 716640 RxNorm TAKE 200 MILLIGRAMS ORAL ONCE A DAY TobraDex ST 0.05%-0.3% Ophthalmic Suspension 11/17/2023 Unknown OPHTHALMIC FOUR TIMES A DAY 1 unit(s) 4465062 RxNorm 1 EACH OPHTHALMIC FOUR TIMES A DAY Tylenol 325MG Oral Tablet 11/17/2023 Unknown ORAL NEEDED EVERY 4 HOURS 650 MILLIGRA MS 750335 RxNorm TAKE 650 MILLIGRAMS ORAL NEEDED EVERY 4 HOURS Hospital Discharge Instructions Should you have any questions prior to discharge, please contact a member of your healthcare team. If you have left the hospital and have any questions, please contact your primary care physician. Reason For Referral No Data Found Allergies and Adverse Reactions Allergy Substance Reaction Severity Start Date Concern Status Co de Code System PCN (penicillin) Active 8168663 SNOMED- CT AZITHROMYCIN Active 83864 RxNorm Plan of Treatment MRI Brain WO Contrast (02578) 4 Encounters Encounter Diagnosis Start Date Code Code Sys tem Major depressive disorder, recurrent, unspecified 09/2023 SNOMED-CT Personal Care Team Section Performer Name Performer Role Active Date Inactive JULIO CESAR Witt PCP - Primary care physician 2023-02-04
--- OUTSIDE RECORDS SUMMARY | 2025-03-07 08:51 | XMS_ITS ---
Author Organization Unknown Address [id number] [place] [phone] Phone Care Team Providers Care Lead Electrician Name Role Phone MIQUEL Leach Attending Unavailable VINCENT TURNER CRNA Unavailable VICKY Arias Primary Unavailable Immunization Immunization [...] mcg/0.3 mL 10/17/2023 Completed 309 CVX Results BEDSIDE GLUCOSE - Collect Da te/Time: 11/17/2023 13:40 [facility] ID: [id number] [place], [place], [id number] LOINC: 31744-7 Test Value Unit Reference Range Code Code System Flag BEDSIDE GLUCOSE 115 mg/dl L=74 H=106 73246-5 LOINC H BEDSIDE GLUCOSE - Collect Da te/Time: 11/17/2023 12:14 [facility] ID: [id number] [address] [place], [place], [id number] LOINC: 09124-2 Test Value Unit Reference Range Code Code System Flag BEDSIDE GLUCOSE 105 mg/dl L=74 H=106 14261-0 LOINC Social History Type Status Start Date End Date Code Code Syst em Smoking History Current every day smoker 789396950 SNOMED CT Sex Male Vital Signs Vital Sign Value Unit Miller Value Miller Unit Date/Time Recent/Initial? Code Code System Body Mass Index 48.75 kg/m2 11/17/2023 12:02 Most Recent 54023 -5 LOINC Body Mass Index 48.75 kg/m2 11/02/2023 11:47 Initial 75417 -5 LOINC Systolic Blood Pressure 175 mm[Hg] 11/17/2023 12:00 Initial 8480- 6 LOINC Diastolic Blood Pressure 81 mm[Hg] 11/17/2023 12:00 Initial 8462- 4 LOINC Body Surface Area 2.41 m2 11/17/2023 12:02 Most Recent 3140- 1 LOINC Body Surface Area 2.41 m2 11/02/2023 11:47 Initial 3140- 1 LOINC Height 162.560 0 cm 64.00 in 11/17/2023 12:02 Most Recent 8302- 2 LOINC Height 162.560 0 cm 64.00 in 11/02/2023 11:47 Initial 8302- 2 LOINC O2 Saturation 100 % 2023 12:00 Initial 97465 -5 LOINC Pulse 79.0 /min 11/17/2023 12:00 Initial 8867- 4 LOINC Respiration 16 /min 11/17/19 12:00 Initial 9279- 1 LOINC Temperature 36.4 Robyn 97.5 F 11/17/19 12:00 Initial 8310- 5 LOINC Weight 128.82 kg 284.00 lbs 11/17/2023 12:02 Most Recent 43897 -7 LOINC Weight 128.82 kg 284.00 lbs 11/02/2023 11:47 Initial 40347 -7 [facility] Medications Medication Start Date End Date Route Frequency Dose Code Code System Medication Instructions Home Meds Albuterol Sulfate 0.09MG/1Actuation Inhalation Suspension 11/17/2023 Unknown INHALATION NEEDED EVERY 4 HOURS 1 unit(s) 2689859 RxNorm 1 EACH INHALATION NEEDED EVERY 4 HOURS Atorvastatin Calcium 10MG Oral Tablet 11/17/2023 Unknown ORAL ONCE A DAY 10 MILLIGRA MS 229923 RxNorm TAKE 10 MILLIGRAMS ORAL ONCE A DAY Levothyroxine 25MCG Oral Tablet 11/17/2023 Unknown ORAL ONCE A DAY 25 MCG 440701 RxNorm TAKE 25 MCG ORAL ONCE A DAY Lisinopril 2.5MG Oral Tablet 11/17/2023 Unknown ORAL ONCE A DAY 2.5 MILLIGRA MS 615179 RxNorm TAKE 2.5 MILLIGRAMS ORAL ONCE A DAY Lybalvi 10 MG-10 MG Oral Tablet 11/17/2023 Unknown ORAL ONCE A DAY 1 unit(s) 7538990 RxNorm TAKE 1 EACH ORAL ONCE A DAY Naproxen 500MG Oral Tablet 11/17/2023 Unknown ORAL NEEDED EVERY 12 HOURS 500 MILLIGRA MS 269135 RxNorm TAKE 500 MILLIGRAMS ORAL NEEDED EVERY 12 HOURS NovoLOG Mix 70/30 FlexPen 70U-30U/1ML Subcutaneous Suspension 11/17/2023 Unknown SUBCUTANEOU S TWICE A DAY 1 unit(s) 403141 RxNorm INJECT INTO 1 EACH SUBCUTANEOU S TWICE A DAY OXcarbazepine 300MG Oral Tablet 11/17/2023 Unknown ORAL TWICE A DAY 300 MILLIGRA MS 998464 RxNorm TAKE 300 MILLIGRAMS ORAL TWICE A DAY Pantoprazole Sodium 40 MG Oral Tablet, Delayed Release 11/17/2023 Unknown ORAL ONCE A DAY 40 MG 609324 RxNorm TAKE 40 MG ORAL ONCE A DAY Sertraline 100MG Oral Tablet 11/17/2023 Unknown ORAL ONCE A DAY 200 MILLIGRA MS 426787 RxNorm TAKE 200 MILLIGRAMS ORAL ONCE A DAY TobraDex ST 0.05%-0.3% Ophthalmic Suspension 11/17/2023 Unknown OPHTHALMIC FOUR TIMES A DAY 1 unit(s) 8734697 RxNorm 1 EACH OPHTHALMIC FOUR TIMES A DAY Tylenol 325MG Oral Tablet 11/17/2023 Unknown ORAL NEEDED EVERY 4 HOURS 650 MILLIGRA MS 961949 RxNorm TAKE 650 MILLIGRAMS ORAL NEEDED EVERY 4 HOURS Hospital Discharge Instructions Should you have any questions prior to discharge, please contact a member of your healthcare team. If you have left the hospital and have any questions, please contact your primary care physician. Reason For Referral No Data Found Procedures Procedure Name Date Status Code Code Syste m Anesthesia for lower intesti nal endoscopic procedures, endoscope introduce 11/17/2023 completed 54438 CPT Extraction of cataract completed 20031546 SN OMEDCT Colorectal cancer screening; colonoscopy on individual not meeting criteri 11/17/2023 completed G0121 CPT History of tonsillectomy completed 510551797 SNOMEDCT Allergies and Adverse Reactions Allergy Substance Reaction Severity Start Date Concern Status Co de Code System PCN (penicillin) Active 8082795 SNOMED- CT AZITHROMYCIN Active 53131 RxNorm Plan of Treatment MRI Brain WO Contrast (36861) 4 Encounters Encounter Diagnosis Start Date Code Code Sys tem Encounter for screening for malignant neoplasm of colo n 11/17/2023 SNOMED-CT Personal Care Team Section Performer Name Performer Role Active Date Inactive JULIO CESAR Witt PCP - Primary care physician 2023-02-04 Procedures Notes
--- OUTSIDE RECORDS SUMMARY | 2025-03-07 08:51 | XMS_ITS ---
Author Organization Unknown Address [address] [place] [phone] Phone Care Team Providers Care Clip Bolter And Wrapper Name Role Phone VICKY HARRELL Hugo Attending Unavailable Immunization Immunization Date Status Additional Notes [...] mcg/0.3 mL 10/17/2023 Completed 309 CVX Results LIPID PANEL - Collect Date/T zoila: 11/30/2024 07:10 [facility] ID: [id number] [place], [place], [address] LOINC: 89231-3 Test Value Unit Reference Range Code Code System Flag FASTING YES CHOLESTEROL 160 mg/dL L=0 H=200 2093-3 LOINC TRIGLYCERIDE 280 mg/dL L=0 H=150 2571-8 LOINC H HDL 26 mg/dL L=40 H=60 2085-9 LOINC L LDL 77 mg/dL 2088-1 LOINC COMPREHENSIVE METABOLIC PANE L - Collect Date/Time: 11/30/2024 07:10 [facility] ID: [id number] [address] [place], [place], [id number] LOINC: 95047-8 Test Value Unit Reference Range Code Code System Flag FASTING YES BUN 24 mg/dL L=7 H=20 3094-0 LOINC H CREATININE 0.90 mg/dL L=0.66 H=1.25 2160-0 LOINC GLUCOSE 105 mg/dL L=74 H=106 2345-7 LOINC SODIUM 136 mmol/L L=132 H=144 2951-2 LOINC POTASSIUM 4.6 mmol/L L=3.5 H=5.1 2823-3 LOINC CHLORIDE 102 mmol/L L=98 H=107 2075-0 LOINC CO2 25.0 mmol/L L=22.0 H=30.0 2027-9 LOINC ANION GAP 14 L=10 H=20 56850-1 LOINC OSMOLALITY 286 mOs/kG L=280 H=296 40132-9 LOINC BUN/CREAT 26.7 3097-3 LOINC CALCIUM 9.0 mg/dL L=8.3 H=10.5 18192-8 LOINC AST 28 U/L L=15 H=46 1920-8 LOINC ALT 20 U/L L=9 H=72 1742-6 LOINC ALKALINE PHOS 81 U/L L=38 H=126 6768-6 LOINC TOTAL BILI 0.2 mg/dL L=0.2 H=1.3 1975-2 LOINC ALBUMIN 4.3 G/dL L=3.5 H=5.0 1751-7 LOINC TOTAL PROTEIN 7.7 g/L L=6.3 H=8.2 2885-2 LOINC A/G RATIO 1.3 98472-6 LOINC AGE 49 67594-0 LOINC eGFR NON-AFR 96 ml/min eGFR AFR AMER 116 ml/min HGB A1C -GLYCOHEMOGLOBIN - C ollect Date/Time: 11/30/2024 07:10 [facility] ID: [id number] [address] [place] [address], [id number] LOINC: 4548-4 Test Value Unit Reference Range Code Code System Flag HGBA1C 7.6 % L=4.8 H=6.0 4548-4 LOINC H CBC W/ DIFF - Collect Date/T zoila: 11/30/2024 07:10 [facility] ID: [id number] [address] [place] [address], [id number] LOINC: 67439-2 Test Value Unit Reference Range Code Code System Flag WBC 4.8 10^3uL L=4.8 H=10.8 RBC 4.66 10^6uL L=4.60 H=6.20 HEMOGLOBIN 13.3 g/dL L=14.0 H=18.0 718-7 LOINC L HEMATOCRIT 41.4 VOL% L=42.0 H=52.0 4544-3 LOINC L MCV 88.8 fL L=80.0 H=94.0 MCH 28.5 pg L=27.0 H=32.0 MCHC 32.1 g/dL L=32.0 H=36.0 PLATELETS 249 10^3uL L=100 H=400 54605-0 LOINC RDW 13.3 % L=11.7 H=15.5 %GRAN 54.8 % L=40.0 H=70.0 16058-8 LOINC %LYMPH 34.0 % L=20.0 H=45.0 736-9 LOINC %MONO 8.5 % L=2.0 H=10.0 43532-8 LOINC %EOS 1.3 % L=0.0 H=6.0 713-8 LOINC %BASO 1.0 % L=0.0 H=3.0 706-2 LOINC #NEUT 2.6 10^3uL L=1.9 H=7.6 60175-2 LOINC #LYMPH 1.6 10^3uL L=0.9 H=4.9 23447-8 LOINC #MONO 0.4 10^3uL L=0.1 H=0.9 97351-6 LOINC #EOS 0.1 10^3uL L=0.0 H=0.6 712-0 LOINC #BASO 0.05 10^3uL L=0.00 H=0.10 73573-2 LOINC #IM GRANS 0.0 10^3uL L=0.0 H=7.0 14364-2 LOINC %IM GRANS 0.4 % L=0.0 H=5.0 67114-2 LOINC %NRB 0.0 L=0.0 H=0.2 98151-1 LOINC #NRB 0.000 L=0.000 H=0.012 62920-6 LOINC MANUAL DIFF NOT INDICATED RBC MORPH NOT INDICATED Social History Type Status Start Date End Date Code Code Syst em Smoking History Current every day smoker 221370059 SNOMED CT Sex Male Medications Medication Start Date End Date Route Frequency Dose Code Code System Medication Instructions Home Meds Albuterol Sulfate 0.09MG/1Actuation Inhalation Suspension 11/17/2023 Unknown INHALATION NEEDED EVERY 4 HOURS 1 unit(s) 6865031 RxNorm 1 EACH INHALATION NEEDED EVERY 4 HOURS Atorvastatin Calcium 10MG Oral Tablet 11/17/2023 Unknown ORAL ONCE A DAY 10 MILLIGRA MS 220986 RxNorm TAKE 10 MILLIGRAMS ORAL ONCE A DAY Levothyroxine 25MCG Oral Tablet 11/17/2023 Unknown ORAL ONCE A DAY 25 MCG 339243 RxNorm TAKE 25 MCG ORAL ONCE A DAY Lisinopril 2.5MG Oral Tablet 11/17/2023 Unknown ORAL ONCE A DAY 2.5 MILLIGRA MS 754921 RxNorm TAKE 2.5 MILLIGRAMS ORAL ONCE A DAY Lybalvi 10 MG-10 MG Oral Tablet 11/17/2023 Unknown ORAL ONCE A DAY 1 unit(s) 1765295 RxNorm TAKE 1 EACH ORAL ONCE A DAY Naproxen 500MG Oral Tablet 11/17/2023 Unknown ORAL NEEDED EVERY 12 HOURS 500 MILLIGRA MS 436896 RxNorm TAKE 500 MILLIGRAMS ORAL NEEDED EVERY 12 HOURS NovoLOG Mix 70/30 FlexPen 70U-30U/1ML Subcutaneous Suspension 11/17/2023 Unknown SUBCUTANEOU S TWICE A DAY 1 unit(s) 649052 RxNorm INJECT INTO 1 EACH SUBCUTANEOU S TWICE A DAY OXcarbazepine 300MG Oral Tablet 11/17/2023 Unknown ORAL TWICE A DAY 300 MILLIGRA MS 255796 RxNorm TAKE 300 MILLIGRAMS ORAL TWICE A DAY Pantoprazole Sodium 40 MG Oral Tablet, Delayed Release 11/17/2023 Unknown ORAL ONCE A DAY 40 MG 689453 RxNorm TAKE 40 MG ORAL ONCE A DAY Sertraline 100MG Oral Tablet 11/17/2023 Unknown ORAL ONCE A DAY 200 MILLIGRA MS 721491 RxNorm TAKE 200 MILLIGRAMS ORAL ONCE A DAY TobraDex ST 0.05%-0.3% Ophthalmic Suspension 11/17/2023 Unknown OPHTHALMIC FOUR TIMES A DAY 1 unit(s) 0450994 RxNorm 1 EACH OPHTHALMIC FOUR TIMES A DAY Tylenol 325MG Oral Tablet 11/17/2023 Unknown ORAL NEEDED EVERY 4 HOURS 650 MILLIGRA MS 670830 RxNorm TAKE 650 MILLIGRAMS ORAL NEEDED EVERY [...] Co de Code System PCN (penicillin) Active 5079978 SNOMED- CT AZITHROMYCIN Active 51902 RxNorm Plan of Treatment MRI Brain WO Contrast (63145) 4 Encounters Encounter Diagnosis Start Date Code Code Sys tem Encounter for screening for human immunodeficiency virus [HIV] 11/30/2024 SNOMED-CT Personal Care Team Section Performer Name Performer Role Active Date Inactive JULIO CESAR Witt PCP - Primary care physician 2023-02-04
--- OUTSIDE RECORDS SUMMARY | 2025-03-07 08:52 | XMS_ITS | Patient Health Record ---
Author Organization [facility] Address [address] [place] [address] Care Team Providers Care Copyright Expert Name Role Phone César Knight Primary Care Provider JONO Torre Unavailable [phone] Reason For Referral No Information Medications Medication SIG (Take, Route, Frequency, Duration) Notes Start Date End Date Status Furosemide 20 MG Oral for 31 Days Active Novofine Pen Needle 32G X 6 MM for 30 Days Active Lisinopril 2.5 MG Oral for 31 Days Active NovoLIN 70/30 FlexPen (70-30) 100 UNIT/ML Subcutaneous for 30 Days Active TRUEplus 5-Bevel Pen [place] 31G X 8 MM USE 1 THREE TIMES DAILY for 30 Days Active Tobramycin-dexAMETHasone 0.3-0.1 % Ophthalmic for 15 Days Activ e Lybalvi 10-10 MG Oral for 30 Days Active Victoza 18 MG/3ML INJECT 1.8 MG SUBCUTANEOUSLY DAILY Subcutaneous for 30 Days Active traMADol HCl 50 MG Oral for 4 Days Active Acetaminophen 325 MG Oral for 8 Days Active Sertraline HCl 100 MG Oral for 31 Days Active busPIRone HCl 10 MG Oral for 14 Days Active Naproxen 500 MG Oral for 31 Days Active Divalproex Sodium 250 MG Oral for 14 Days Active Atorvastatin Calcium 10 MG Oral for 31 Days Active Lansoprazole 30 MG Oral for 14 Days Active NovoLOG Mix 70/30 FlexPen (70-30) 100 UNIT/ML Subcutaneous for 30 Days Active Albuterol Sulfate HFA 108 (90 Base) MCG/ACT INHALE 2 PUFFS BY MOUTH 4 TIMES DAILY NEEDED Inhalation for 25 Days Active Vitamin D3 50 MCG (1999 UT) Oral for 21 Days Active Azithromycin 500 MG TAKE 1 TABLET BY GISELA TH ONCE DAILY Oral for 10 Days Active OXcarbazepine 300 MG Oral for 31 Days Active Benzonatate 200 MG TAKE 1 CAPSULE BY MO UT TWICE DAILY Oral for 10 Days Active Pantoprazole Sodium 40 MG Oral for 31 Days Active Social History Tobacco Use: Social History Observation Description Date Details (start date - stop date) Unknown Tobacco Control (Standard) Question Answer Notes Tobacco use: Uses tobacco in other forms Problems Problem Type SNOMED Code ICD Code Onset Dates Problem Status W/U Status Risk Notes Problem Polyneuropathy due to type 2 diabetes mellitus (843767117) Type 2 diabetes mellitus with diabetic polyneuropathy (E11.42) Active confirmed Problem Polyneuropathy due to type 2 diabetes mellitus (273128706) Type 2 diabetes mellitus with diabetic polyneuropathy, unspecified whether marine oil terminal superintendent insulin use (E11.42) Active confirmed Vital Signs Heart Rate 76 /min 02/18/2025 Height-cm 162.56 cm 02/18/2025 Blood pressure diastolic 81 mm Hg 02/18/2025 Weight-kg 122.47 kg 02/18/2025 Height 64 in 02/18/2025 Blood pressure systolic 131 mm Hg 02/18/2025 Weight 270 lbs 02/18/2025 BMI 46.34 kg/m2 02/18/2025 Encounters Encounter Location Date Provider Diagnosis [address] [address] 04/02/2024 JONO COCKAYNE Nail dystrophy L60.3 ; Type 2 diabetes mellitus with diabetic polyneuropathy, unspecified whether alf insulin use E11.42 ; Tinea unguium B35.1 ; Corns and callosities L84 ; Left foot drop M21.372 and Foot drop, right foot M21.[address] [address] 06/18/2024 JONO COCKAYNE Nail dystrophy L60.3 ; Type 2 diabetes mellitus with diabetic polyneuropathy, unspecified whether alf insulin use E11.42 ; Tinea unguium B35.1 ; Corns and callosities L84 ; Left foot drop M21.372 and Foot drop, right foot M21.[address] [address] 09/17/2024 JONO COCKAYNE Nail dystrophy L60.3 ; Type 2 diabetes mellitus with diabetic polyneuropathy, unspecified whether alf insulin use E11.42 ; Tinea unguium B35.1 ; Corns and callosities L84 ; Left foot drop M21.372 and Foot drop, right foot M21.[address] [address] 12/17/2024 JONO JORDAN Nail dystrophy L60.3 ; Type 2 diabetes mellitus with diabetic polyneuropathy, unspecified whether marine oil terminal superintendent insulin use E11.42 ; Tinea unguium B35.1 ; Corns and callosities L84 ; Left foot drop M21.372 and Foot drop, right foot M21.[address] [address] 02/18/2025 JONO JORDAN Nail dystrophy L60.3 ; Type 2 diabetes mellitus with diabetic polyneuropathy, unspecified whether marine oil terminal superintendent insulin use E11.42 ; Tinea unguium B35.1 ; Corns and callosities L84 ; Left foot drop M21.372 and Foot drop, right foot M21.371 [facility] [address] [place] [address] 05/15/2024 JONO JORDAN Assessments Encounter Date Diagnosis (ICD Code) Assessment Notes Treatment Notes Treatment Clinical Notes Section Notes 04/02/2024 Nail dystrophy (ICD-10 - L60.3) 06/18/2024 Nail dystrophy (ICD-10 - L60.3) 09/17/2024 Nail dystrophy (ICD-10 - L60.3) 12/17/2024 Nail dystrophy (ICD-10 - L60.3) 02/18/2025 Nail dystrophy (ICD-10 - L60.3) 12/17/2024 Type 2 diabetes mellitus with diabetic polyneuropathy, unspecified whether alf insulin use (ICD-10 - E11.42) We discussed preventative foot care. We discussed preventative foot hygiene. We instructed the patient on how to care for their feet, and to contact the office if any wounds develop or signs of infection arise. Peripheral neuropathy covered:Examination of the patient's sensation shows that there is advanced neuropathy to the extent that care by a non-professional person would put the patient at risk for ulceration, infection and/or amputation. Trimmed 8 nails, without incident. The nails were debrided of all fungal material and debris. Debridement included a reduction in bulk of the nail by use of a sharp hub cutter and/or rotary instrument. Reason for debridement include relief of pain, treatment of infection, temporary removal of an anatomic deformity such as onychauxis or onychocryptosis, exposure of subungual conditions for the purpose of treatment as well as diagnosis, and/or as a prophylactic measure to prevent further problems, such as subungual ulceration in an insensate patient with onychauxis. Antiseptic was applied. Debrided 2 nails without incident. The hyperkeratotic lesions were sharply pared. The callus or corns pared are not associated within the toenail complex and are proximal to the interphalangeal joint or are proximal to the distal phalanx. The services performed were on separate sites and not located on a toe. Antiseptic was applied. Pared one hyperkeratotic lesion that is on a separate site of service and not located on a toe. 02/18/2025 Type 2 diabetes mellitus with diabetic polyneuropathy, unspecified whether marine oil terminal superintendent insulin use (ICD-10 - E11.42) We discussed preventative foot care. We discussed preventative foot hygiene. We instructed the patient on how to care for their feet, and to contact the office if any wounds develop or signs of infection arise. Peripheral neuropathy covered:Examination of the patient's sensation shows that there is advanced neuropathy to the extent that care by a non-professional person would put the patient at risk for ulceration, infection and/or amputation. Trimmed 8 nails, without incident. The nails were debrided of all fungal material and debris. Debridement included a reduction in bulk of the nail by use of a sharp hub cutter and/or rotary instrument. Reason for debridement include relief of pain, treatment of infection, temporary removal of an anatomic deformity such as onychauxis or onychocryptosis, exposure of subungual conditions for the purpose of treatment as well as diagnosis, and/or as a prophylactic measure to prevent further problems, such as subungual ulceration in an insensate patient with onychauxis. Antiseptic was applied. Debrided 2 nails without incident. The hyperkeratotic lesions were sharply pared. The callus or corns pared are not associated within the toenail complex and are proximal to the interphalangeal joint or are proximal to the distal phalanx. The services performed were on separate sites and not located on a toe. Antiseptic was applied. Pared one hyperkeratotic lesion that is on a separate site of service and not located on a toe. 09/17/2024 Type 2 diabetes mellitus with diabetic polyneuropathy, unspecified whether alf insulin use (ICD-10 - E11.42) We discussed preventative foot care. We discussed preventative foot hygiene. We instructed the patient on how to care for their feet, and to contact the office if any wounds develop or signs of infection arise. Peripheral neuropathy covered:Examination of the patient's sensation shows that there is advanced neuropathy to the extent that care by a non-professional person would put the patient at risk for ulceration, infection and/or amputation. Trimmed 8 nails, without incident. The nails were debrided of all fungal material and debris. Debridement included a reduction in bulk of the nail by use of a sharp hub cutter and/or rotary instrument. Reason for debridement include relief of pain, treatment of infection, temporary removal of an anatomic deformity such as onychauxis or onychocryptosis, exposure of subungual conditions for the purpose of treatment as well as diagnosis, and/or as a prophylactic measure to prevent further problems, such as subungual ulceration in an insensate patient with onychauxis. Antiseptic was applied. Debrided 2 nails without incident. The hyperkeratotic lesions were sharply pared. The callus or corns pared are not associated within the toenail complex and are proximal to the interphalangeal joint or are proximal to the distal phalanx. The services performed were on separate sites and not located on a toe. Antiseptic was applied. Pared one hyperkeratotic lesion that is on a separate site of service and not located on a toe. 06/18/2024 Type 2 diabetes mellitus with diabetic polyneuropathy, unspecified whether alf insulin use (ICD-10 - E11.42) We discussed preventative foot care. We discussed preventative foot hygiene. We instructed the patient on how to care for their feet, and to contact the office if any wounds develop or signs of infection arise. Peripheral neuropathy covered:Examination of the patient's sensation shows that there is advanced neuropathy to the extent that care by a non-professional person would put the patient at risk for ulceration, infection and/or amputation. Trimmed 8 nails, without incident. The nails were debrided of all fungal material and debris. Debridement included a reduction in bulk of the nail by use of a sharp hub cutter and/or rotary instrument. Reason for debridement include relief of pain, treatment of infection, temporary removal of an anatomic deformity such as onychauxis or onychocryptosis, exposure of subungual conditions for the purpose of treatment as well as diagnosis, and/or as a prophylactic measure to prevent further problems, such as subungual ulceration in an insensate patient with onychauxis. Antiseptic was applied. Debrided 2 nails without incident. The hyperkeratotic lesions were sharply pared. The callus or corns pared are not associated within the toenail complex and are proximal to the interphalangeal joint or are proximal to the distal phalanx. The services performed were on separate sites and not located on a toe. Antiseptic was applied. Pared one hyperkeratotic lesion that is on a separate site of service and not located on a toe. 04/02/2024 Type 2 diabetes mellitus with diabetic polyneuropathy, unspecified whether marine oil terminal superintendent insulin use (ICD-10 - E11.42) We discussed preventative foot care. We discussed preventative foot hygiene. We instructed the patient on how to care for their feet, and to contact the office if any wounds develop or signs of infection arise. Peripheral neuropathy covered:Examination of the patient's sensation shows that there is advanced neuropathy to the extent that care by a non-professional person would put the patient at risk for ulceration, infection and/or amputation. Trimmed 8 nails, without incident. The nails were debrided of all fungal material and debris. Debridement included a reduction in bulk of the nail by use of a sharp hub cutter and/or rotary instrument. Reason for debridement include relief of pain, treatment of infection, temporary removal of an anatomic deformity such as onychauxis or onychocryptosis, exposure of subungual conditions for the purpose of treatment as well as diagnosis, and/or as a prophylactic measure to prevent further problems, such as subungual ulceration in an insensate patient with onychauxis. Antiseptic was applied. Debrided 2 nails without incident. The hyperkeratotic lesions were sharply pared. The callus or corns pared are not associated within the toenail complex and are proximal to the interphalangeal joint or are proximal to the distal phalanx. The services performed were on separate sites and not located on a toe. Antiseptic was applied. Pared one hyperkeratotic lesion that is on a separate site of service and not located on a toe. Rx DM shoes. 04/02/2024 Tinea unguium (ICD-10 - B35.1) 04/02/2024 Corns and callosities (ICD-10 - L84) 06/18/2024 Tinea unguium (ICD-10 - B35.1) 09/17/2024 Tinea unguium (ICD-10 - B35.1) 12/17/2024 Tinea unguium (ICD-10 - B35.1) 02/18/2025 Tinea unguium (ICD-10 - B35.1) 02/18/2025 Corns and callosities (ICD-10 - L84) 12/17/2024 Corns and callosities (ICD-10 - L84) 09/17/2024 Corns and callosities (ICD-10 - L84) 04/02/2024 Left foot drop (ICD-10 - M21.372) 06/18/2024 Corns and callosities (ICD-10 - L84) 04/02/2024 Foot drop, right foot (ICD-10 - M21.371) 06/18/2024 Left foot drop (ICD-10 - M21.372) 09/17/2024 Left foot drop (ICD-10 - M21.372) 12/17/2024 Left foot drop (ICD-10 - M21.372) 02/18/2025 Left foot drop (ICD-10 - M21.372) 02/18/2025 Foot drop, right foot (ICD-10 - M21.371) 09/17/2024 Foot drop, right foot (ICD-10 - M21.371) 12/17/2024 Foot drop, right foot (ICD-10 - M21.371) 06/18/2024 Foot drop, right foot (ICD-10 - M21.371) Plan Of Treatment Next Appt Details Provider Name:JONO SLOAN, 05/03/2025 10:00:00 AM, [address] [place], [address], Insurance Providers Payer Name Payer Address Payer Phone Subscriber Number Group Number Insured Name Patient Relationship to Insured Coverage Start Date Coverage End Date [facility] CHRONIC COMPLETE [employer]URE [address] [address] [place] [address] [id number] JAMES JONES Self - patient is the insured [facility] DEPT OF PUBLIC AID [address] [address] [place] [address] [id number] JAMES JOENS Self - patient is the insured Medical (General) History Medical History History ICD Code Type 2 diabetes mellitus with diabetic p olyneuropathy E11.42 Surgical History Surgery Date(Month/Year) Tonsils removed
--- OUTSIDE RECORDS SUMMARY | 2025-03-07 08:52 | XMS_ITS ---
Author Organization Unknown Address [address] [place] [phone] Phone Care Team Providers Care Animal Nutrition Teacher Name Role Phone VICKY HARRELL Hugo Attending [...] mcg/0.3 mL 10/17/2023 Completed 309 CVX Results CBC W/O DIFF - Collect Date/ Time: 09/08/2023 07:45 [facility] ID: [id number] [place], [place], [id number] LOINC: 17266-9 Test Value Unit Reference Range Code Code System Flag WBC 3.7 10^3uL L=4.8 H=10.8 L RBC 4.15 10^6uL L=4.60 H=6.20 L HEMOGLOBIN 11.3 g/dL L=14.0 H=18.0 718-7 LOINC L HEMATOCRIT 34.8 VOL% L=42.0 H=52.0 4544-3 LOINC L MCV 83.9 fL L=80.0 H=94.0 MCH 27.2 pg L=27.0 H=32.0 MCHC 32.5 g/dL L=32.0 H=36.0 PLATELETS 307 10^3uL L=100 H=400 84303-7 LOINC RDW 13.8 % L=11.7 H=15.5 COMPREHENSIVE METABOLIC PANE L - Collect Date/Time: 09/08/2023 07:45 [facility] ID: [id number] [address] [place], [place], [id number] LOINC: 42823-8 Test Value Unit Reference Range Code Code System Flag FASTING YES BUN 23 mg/dL L=7 H=20 3094-0 LOINC H CREATININE 0.90 mg/dL L=0.66 H=1.25 2160-0 LOINC GLUCOSE 100 mg/dL L=74 H=106 2345-7 LOINC SODIUM 137 mmol/L L=132 H=144 2951-2 LOINC POTASSIUM 4.5 mmol/L L=3.5 H=5.1 2823-3 LOINC CHLORIDE 102 mmol/L L=98 H=107 2075-0 LOINC CO2 29.0 mmol/L L=22.0 H=30.0 2028-9 LOINC ANION GAP 11 L=10 H=20 02153-6 LOINC OSMOLALITY 288 mOs/kG L=280 H=296 09112-6 LOINC BUN/CREAT 25.6 3097-3 LOINC CALCIUM 8.9 mg/dL L=8.3 H=10.5 19728-6 LOINC AST 31 U/L L=15 H=46 1920-8 LOINC ALT 27 U/L L=9 H=72 1742-6 LOINC ALKALINE PHOS 73 U/L L=38 H=126 6768-6 LOINC TOTAL BILI 0.3 mg/dL L=0.2 H=1.3 1975-2 LOINC ALBUMIN 4.0 G/dL L=3.5 H=5.0 1751-7 LOINC TOTAL PROTEIN 7.5 g/L L=6.3 H=8.2 2885-2 LOINC A/G RATIO 1.1 99548-9 LOINC AGE 47 [address]7765-4 LOINC eGFR NON-AFR 97 ml/min eGFR AFR AMER 117 ml/min LIPID PANEL - Collect Date/T zoila: 09/08/2023 07:45 [facility] ID: [id number] [place] [address], [phone] LOINC: 57252-2 Test Value Unit Reference Range Code Code System Flag FASTING YES CHOLESTEROL 107 mg/dL L=0 H=200 2093-3 LOINC TRIGLYCERIDE 89 mg/dL L=0 H=150 2571-8 LOINC HDL 29 mg/dL L=40 H=60 2085-9 LOINC L LDL 56 mg/dL 2088-1 LOINC HGB A1C -GLYCOHEMOGLOBIN - C ollect Date/Time: 09/08/2023 07:45 [facility] ID: [id number] [place] [address], [id number] LOINC: 4548-4 Test Value Unit Reference Range Code Code System Flag HGBA1C 7.1 % 4548-4 LOINC Social History Type Status Start Date End Date Code Code Syst em Smoking History Current every day smoker [id number] SNOMED CT Sex Male Medications Medication Start Date End Date Route Frequency Dose Code Code System Medication Instructions Home Meds Albuterol Sulfate 0.09MG/1Actuation Inhalation Suspension 11/17/2023 Unknown INHALATION NEEDED EVERY 4 HOURS 1 unit(s) 0076368 RxNorm 1 EACH INHALATION NEEDED EVERY 4 HOURS Atorvastatin Calcium 10MG Oral Tablet 11/17/2023 Unknown ORAL ONCE A DAY 10 MILLIGRA MS 983364 RxNorm TAKE 10 MILLIGRAMS ORAL ONCE A DAY Levothyroxine 25MCG Oral Tablet 11/17/2023 Unknown ORAL ONCE A DAY 25 MCG 586550 RxNorm TAKE 25 MCG ORAL ONCE A DAY Lisinopril 2.5MG Oral Tablet 11/17/2023 Unknown ORAL ONCE A DAY 2.5 MILLIGRA MS 231409 RxNorm TAKE 2.5 MILLIGRAMS ORAL ONCE A DAY Lybalvi 10 MG-10 MG Oral Tablet 11/17/2023 Unknown ORAL ONCE A DAY 1 unit(s) 8723259 RxNorm TAKE 1 EACH ORAL ONCE A DAY Naproxen 500MG Oral Tablet 11/17/2023 Unknown ORAL NEEDED EVERY 12 HOURS 500 MILLIGRA MS 238399 RxNorm TAKE 500 MILLIGRAMS ORAL NEEDED EVERY 12 HOURS NovoLOG Mix 70/30 FlexPen 70U-30U/1ML Subcutaneous Suspension 11/17/2023 Unknown SUBCUTANEOU S TWICE A DAY 1 unit(s) 895454 RxNorm INJECT INTO 1 EACH SUBCUTANEOU S TWICE A DAY OXcarbazepine 300MG Oral Tablet 11/17/2023 Unknown ORAL TWICE A DAY 300 MILLIGRA MS 871393 RxNorm TAKE 300 MILLIGRAMS ORAL TWICE A DAY Pantoprazole Sodium 40 MG Oral Tablet, Delayed Release 11/17/2023 Unknown ORAL ONCE A DAY 40 MG 795463 RxNorm TAKE 40 MG ORAL ONCE A DAY Sertraline 100MG Oral Tablet 11/17/2023 Unknown ORAL ONCE A DAY 200 MILLIGRA MS 105160 RxNorm TAKE 200 MILLIGRAMS ORAL ONCE A DAY TobraDex ST 0.05%-0.3% Ophthalmic Suspension 11/17/2023 Unknown OPHTHALMIC FOUR TIMES A DAY 1 unit(s) 7381126 RxNorm 1 EACH OPHTHALMIC FOUR TIMES A DAY Tylenol 325MG Oral Tablet 11/17/2023 Unknown ORAL NEEDED EVERY 4 HOURS 650 MILLIGRA MS 354165 RxNorm TAKE 650 MILLIGRAMS ORAL NEEDED EVERY [...] Co de Code System PCN (penicillin) Active 0116432 SNOMED- CT AZITHROMYCIN Active 06182 RxNorm Plan of Treatment MRI Brain WO Contrast (17703) 4 Encounters Encounter Diagnosis Start Date Code Code Sys tem Mild intellectual disabilities 09/08/2023 SNOMED-CT Personal Care Team Section Performer Name Performer Role Active Date Inactive JULIO CESAR Witt PCP - Primary care physician 2023-02-04
--- OUTSIDE RECORDS SUMMARY | 2025-03-07 08:52 | XMS_ITS | Continuity of Care Document ---
Author Organization [facility] Address [address] [place] [address] [address] [place] [address] Phone Care Team Providers Care Hospital Medicine Director Name Role Phone Perico Montemayor MD, FACS Unavailable Unavailab le Allergies, Adverse Reactions, Alerts Substance Reaction Status Criticality PENICILLIN Active No Information azithromycin Active No Information Medications Medication Instructions Dosage Effective Dates (start - stop) Status Comments iVizia (PF) 0.5 % eye drops instill 1 drop by ophthalmic route 4 times every day for dryness 1 drop - Active naproxen 500 mg tablet take 1 tablet by oral route 2 times every day with food 500 MG - Active albuterol sulfate ER 4 mg tablet,extended release,12 hr take 1 tablet by oral route every 12 hours 4 MG - Active acetaminophen 325 mg capsule take 1 by oral route every day as needed 1 - Active tobramycin 0.3 %-dexamethasone 0.1 % eye drops,suspension instill 1 drop by Topical route 4 times every day 1 drop - Active sertraline 100 mg tablet take 1 tablet by oral route every day 100 MG - Active pantoprazole 40 mg tablet,delayed release take 1 tablet by oral route every day 40 MG - Active oxcarbazepine 300 mg tablet take 1 tablet by oral route 2 times every day 300 MG - Active Novolog Mix 70-30 FlexPen U-100 Insulin 100 unit/mL subcutaneous pen inject by subcutaneous route as per insulin protocol 0.00 - Active Lybalvi 10 mg-10 mg tablet take 1 tablet by oral route every day 1.00 tablet - Active lisinopril 2.5 mg tablet take 1 tablet by oral route every day 2.5 MG - Active levothyroxine 25 mcg capsule take 1 capsule by oral route every day 25 MCG - Active atorvastatin 10 mg tablet take 1 tablet by oral route every day 10 MG - Active Procedures Procedure Date Fundus Photography W/ Report Corneal Topography Corneal Pachymetry Office/outpatient Visit, New Eye Exam & Treatment Advance Directives Directive Yes / No Effective Date File Name No Information Encounters Encounter Description Practice Location Reason(s) For Visit Diagnoses Date Provider Providers Copied on Encounter [facility], [facility] [address], [place], [place], [id number], tel:[phone] [place] No Information 4 [place]. [facility] [place], [address], [place], [place], [address], [place]. tel:[phone] Office/outpa tient Visit, [facility], [address], [place], [place], [address], tel:[phone] [place] Cornea evaluation (chief complaint) History of panretinal photocoagulati onOther secondary cataract, bilateralPrese nce of intraocular lensCatarrhal conjunctivitis of both eyes 4 [place]. [facility], [address], [place], [place], [address], [place]. tel:[phone] Referring Provider: Eitan Kenny OD, [address] [place] [address], [address]. tel:[phone] [facility], [address], [place], [place], [address], [place] tel:[phone] [place] No Information 4 [place]. [address], [address], [place], [place], [address], [place]. tel:[phone] Referring Provider: Eitan Kenny OD, [address] [place] [address], [address]. tel:[phone] [facility], [address], [place], [place], [address], [place] tel:[phone] [facility] No Information 9 Billie Tillman. [address] [facility] [address], [place], [address], [place]. tel:[phone] Family History Family Member Type Diagnosis Age At Onset No Information Payers Payer name Insurance type Covered democrat ID Authoriza tipipo(s) [facility] Mdcr Adv CI [id number] Social History Type Description Quantity Date Captured Comments Alcohol Use Details Unknown Caffeine Use Details Unknown Tobacco Use Status Smoking Status No Information Sex Male Chief Complaint And Reason For Visit No Information Reason For Referral Reason For Referral No Information Plan Of Treatment Date Type Action Status Goal Tobacco cessation counseling completed History Of Present Illness Encounter Date Complaint History Of Prese nt Illness Cornea evaluation The 48 year ol d patient 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 Pt was referred by Dr Kenny, correspondence in chart. Pt was put on Tobradex in july for what they thought was pink eye at a [facility] and pt has been on it ever since and Dr Kenny feels like there is still some type of corneal infection. Pt states OD VA seems clear but OS VA is very cloudy. Pt had hx PCIOL OU. Pt is DMII and unknown A1C they believe it was around 6.2. Pt BS is pretty stable in the 130-150 range but it is unknown what the most recent number was. Pt lives in a facility and is here with an social worker assistant today. Pt using Tobradex QID OU. Functional Status Date Functional Assessmen t No Information Instructions Date Instruction Additional Infor ramesh Impression/Plan Assessments Type Assessment Date No Information Patient Care Teams Name Effective Dates (start - stop) Status Members No Information
--- OUTSIDE RECORDS SUMMARY | 2025-03-07 08:52 | XMS_ITS ---
Author Organization Unknown Address [address] [place] [phone] Phone Care Team Providers Care A/C Technician Name Role Phone VICKY HARRELL Hugo Attending [...] mcg/0.3 mL 10/17/2023 Completed 309 CVX Results TSH - Collect Date/Time: 06:45 [facility] ID: [id number] [address] [place], [place], [id number] LOINC: 45526-8 Test Value Unit Reference Range Code Code System Flag TSH. 4.920 uIU/L L=0.470 H=4.680 50078-5 LOINC H URINALYSIS w/Microscopy - Co llect Date/Time: 02/04/2025 06:00 [facility] ID: [id number] [address] [place], [place], [id number] LOINC: 28529-1 Test Value Unit Reference Range Code Code System Flag UR SOURCE CLEAN CATCH 70507-0 LOINC COLOR YELLOW YELLOW 5778-6 LOINC CLARITY CLEAR CLEAR 72682-0 LOINC SPEC GRAVITY 1.010 1.000-1.030 5811-5 LOINC PH 6.0 5.0 - 6.5 5803-2 LOINC LEUK EST NEGATIVE NEGATIVE 5799-2 LOINC NITRATE NEGATIVE NEGATIVE PROTEIN NEGATIVE NEGATIVE 5804-0 LOINC GLUCOSE 3+ NEGATIVE 63888-8 LOINC KETONES NEGATIVE NEGATIVE 64505-1 LOINC UROBILINOGEN 0.2 0.2 - 1.0 5818-0 LOINC BILIRUBIN NEGATIVE NEGATIVE 95324-5 LOINC BLOOD NEGATIVE NEGATIVE 89926-5 LOINC WBC 0-2 0 - 2 87632-7 LOINC RBC 0-2 0 - 2 09971-3 LOINC SQ EPITHELIAL RARE RARE-FEW BACTERIA NONE SEEN NONE SEEN 47073-1 LOINC MUCUS NONE SEEN NONE SEEN 8247-9 LOINC YEAST NOT PRESENT NOT PRESENT 93810-6 LOINC TRICHOMONAS NOT PRESENT NOT PRESENT 54712-2 LOINC SPERMATOZOA NOT PRESENT NOT PRESENT 44080-4 LOINC CASTS NOT PRESENT 51638-0 LOINC CRYSTALS NOT PRESENT 25897-9 LOINC Social History Type Status Start Date End Date Code Code Syst em Smoking History Current every day smoker 020643342 SNOMED CT Sex Male Medications Medication Start Date End Date Route Frequency Dose Code Code System Medication Instructions Home Meds Albuterol Sulfate 0.09MG/1Actuation Inhalation Suspension 11/17/2023 Unknown INHALATION NEEDED EVERY 4 HOURS 1 unit(s) 7493147 RxNorm 1 EACH INHALATION NEEDED EVERY 4 HOURS Atorvastatin Calcium 10MG Oral Tablet 11/17/2023 Unknown ORAL ONCE A DAY 10 MILLIGRA MS 637603 RxNorm TAKE 10 MILLIGRAMS ORAL ONCE A DAY Levothyroxine 25MCG Oral Tablet 11/17/2023 Unknown ORAL ONCE A DAY 25 MCG 652069 RxNorm TAKE 25 MCG ORAL ONCE A DAY Lisinopril 2.5MG Oral Tablet 11/17/2023 Unknown ORAL ONCE A DAY 2.5 MILLIGRA MS 442233 RxNorm TAKE 2.5 MILLIGRAMS ORAL ONCE A DAY Lybalvi 10 MG-10 MG Oral Tablet 11/17/2023 Unknown ORAL ONCE A DAY 1 unit(s) 7486162 RxNorm TAKE 1 EACH ORAL ONCE A DAY Naproxen 500MG Oral Tablet 11/17/2023 Unknown ORAL NEEDED EVERY 12 HOURS 500 MILLIGRA MS 251179 RxNorm TAKE 500 MILLIGRAMS ORAL NEEDED EVERY 12 HOURS NovoLOG Mix 70/30 FlexPen 70U-30U/1ML Subcutaneous Suspension 11/17/2023 Unknown SUBCUTANEOU S TWICE A DAY 1 unit(s) 760163 RxNorm INJECT INTO 1 EACH SUBCUTANEOU S TWICE A DAY OXcarbazepine 300MG Oral Tablet 11/17/2023 Unknown ORAL TWICE A DAY 300 MILLIGRA MS 910869 RxNorm TAKE 300 MILLIGRAMS ORAL TWICE A DAY Pantoprazole Sodium 40 MG Oral Tablet, Delayed Release 11/17/2023 Unknown ORAL ONCE A DAY 40 MG 162318 RxNorm TAKE 40 MG ORAL ONCE A DAY Sertraline 100MG Oral Tablet 11/17/2023 Unknown ORAL ONCE A DAY 200 MILLIGRA MS 273902 RxNorm TAKE 200 MILLIGRAMS ORAL ONCE A DAY TobraDex ST 0.05%-0.3% Ophthalmic Suspension 11/17/2023 Unknown OPHTHALMIC FOUR TIMES A DAY 1 unit(s) 0146313 RxNorm 1 EACH OPHTHALMIC FOUR TIMES A DAY Tylenol 325MG Oral Tablet 11/17/2023 Unknown ORAL NEEDED EVERY 4 HOURS 650 MILLIGRA MS 612615 RxNorm TAKE 650 MILLIGRAMS ORAL NEEDED EVERY [...] Co de Code System PCN (penicillin) Active 1517578 SNOMED- CT AZITHROMYCIN Active 02358 RxNorm Plan of Treatment MRI Brain WO Contrast (18152) 4 Encounters Encounter Diagnosis Start Date Code Code Sys tem Encounter for screening for human immunodeficiency virus [HIV] 02/04/2025 SNOMED-CT Personal Care Team Section Performer Name Performer Role Active Date Inactive JULIO CESAR Witt PCP - Primary care physician 2023-02-04
--- OUTSIDE RECORDS SUMMARY | 2025-03-07 08:53 | XMS_ITS | Patient Health Record ---
Author Organization [facility] Address [address] [place], [place] [address] Care Team Providers Care Recovery Unit Operator Name Role Phone TIFFANY Ayers Unavailable [phone] Nick Quick Unavailable Unavailable Reason For Referral No Information Plan Of Treatment No Information Insurance Providers Payer Name Payer Address Payer Phone Subscriber Number Group Number Insured Name Patient Relationship to Insured Coverage Start Date Coverage End Date [employer] [address] [place] [phone] [id number] JAMES JONES Self - patient is the insured
--- OUTSIDE RECORDS SUMMARY | 2025-03-07 08:53 | XMS_ITS ---
Author Organization Unknown Address [address] [place] [phone] Phone Care Team Providers Care Sponge Clipper Name Role Phone VICKY HARRELL Hugo Attending [...] Results LIPID PANEL - Collect Date/T zoila: 05/15/2024 06:35 [facility] ID: [id number] [place], [place], [id number] LOINC: 69729-7 Test Value Unit Reference Range Code Code System Flag FASTING YES CHOLESTEROL 121 mg/dL L=0 H=200 2093-3 LOINC TRIGLYCERIDE 169 mg/dL L=0 H=150 2571-8 LOINC H HDL 30 mg/dL L=40 H=60 2085-9 LOINC L LDL 55 mg/dL 2088-1 LOINC COMPREHENSIVE METABOLIC PANE L - Collect Date/Time: 05/15/2024 06:35 [facility] ID: [id number] [address] [place], [place], [address] LOINC: 78954-1 Test Value Unit Reference Range Code Code System Flag FASTING YES BUN 22 mg/dL L=7 H=20 3094-0 LOINC H CREATININE 0.80 mg/dL L=0.66 H=1.25 2160-0 LOINC GLUCOSE 227 mg/dL L=74 H=106 2345-7 LOINC H SODIUM 132 mmol/L L=132 H=144 2951-2 LOINC POTASSIUM 4.3 mmol/L L=3.5 H=5.1 2823-3 LOINC CHLORIDE 95 mmol/L L=98 H=107 2075-0 LOINC L CO2 26.0 mmol/L L=22.0 H=30.0 8-9 LOINC ANION GAP 15 L=10 H=20 25729-4 LOINC OSMOLALITY 284 mOs/kG L=280 H=296 15989-8 LOINC BUN/CREAT 27.5 3097-3 LOINC CALCIUM 9.1 mg/dL L=8.3 H=10.5 82888-6 LOINC AST 23 U/L L=15 H=46 1920-8 LOINC ALT 19 U/L L=9 H=72 1742-6 LOINC ALKALINE PHOS 79 U/L L=38 H=126 6768-6 LOINC TOTAL BILI 0.4 mg/dL L=0.2 H=1.3 1975-2 LOINC ALBUMIN 3.8 G/dL L=3.5 H=5.0 1751-7 LOINC TOTAL PROTEIN 6.9 g/L L=6.3 H=8.2 2885-2 LOINC A/G RATIO 1.2 44694-1 LOINC AGE 48 50313-9 LOINC eGFR NON-AFR 111 ml/min eGFR AFR AMER 134 ml/min HGB A1C -GLYCOHEMOGLOBIN - C ollect Date/Time: 05/15/2024 06:35 [facility] ID: [id number] [address] [place], [place], [id number] LOINC: 4548-4 Test Value Unit Reference Range Code Code System Flag HGBA1C 9.1 % 4548-4 LOINC CBC W/O DIFF - Collect Date/ Time: 05/15/2024 06:35 [facility] ID: [id number] [place], [place], [address] LOINC: 95795-0 Test Value Unit Reference Range Code Code System Flag WBC 4.5 10^3uL L=4.8 H=10.8 L RBC 4.13 10^6uL L=4.60 H=6.20 L HEMOGLOBIN 11.5 g/dL L=14.0 H=18.0 718-7 LOINC L HEMATOCRIT 34.6 VOL% L=42.0 H=52.0 4544-3 LOINC L MCV 83.8 fL L=80.0 H=94.0 MCH 27.8 pg L=27.0 H=32.0 MCHC 33.2 g/dL L=32.0 H=36.0 PLATELETS 262 10^3uL L=100 H=400 55962-5 LOINC RDW 13.4 % L=11.7 H=15.5 Social History Type Status Start Date End Date Code Code Syst em Smoking History Current every day smoker 535159185 SNOMED CT Sex Male Medications Medication Start Date End Date Route Frequency Dose Code Code System Medication Instructions Home Meds Albuterol Sulfate 0.09MG/1Actuation Inhalation Suspension 11/17/2023 Unknown INHALATION NEEDED EVERY 4 HOURS 1 unit(s) 7932335 RxNorm 1 EACH INHALATION NEEDED EVERY 4 HOURS Atorvastatin Calcium 10MG Oral Tablet 11/17/2023 Unknown ORAL ONCE A DAY 10 MILLIGRA MS 624193 RxNorm TAKE 10 MILLIGRAMS ORAL ONCE A DAY Levothyroxine 25MCG Oral Tablet 11/17/2023 Unknown ORAL ONCE A DAY 25 MCG 521588 RxNorm TAKE 25 MCG ORAL ONCE A DAY Lisinopril 2.5MG Oral Tablet 11/17/2023 Unknown ORAL ONCE A DAY 2.5 MILLIGRA MS 379190 RxNorm TAKE 2.5 MILLIGRAMS ORAL ONCE A DAY Lybalvi 10 MG-10 MG Oral Tablet 11/17/2023 Unknown ORAL ONCE A DAY 1 unit(s) 3562379 RxNorm TAKE 1 EACH ORAL ONCE A DAY Naproxen 500MG Oral Tablet 11/17/2023 Unknown ORAL NEEDED EVERY 12 HOURS 500 MILLIGRA MS 268508 RxNorm TAKE 500 MILLIGRAMS ORAL NEEDED EVERY 12 HOURS NovoLOG Mix 70/30 FlexPen 70U-30U/1ML Subcutaneous Suspension 11/17/2023 Unknown SUBCUTANEOU S TWICE A DAY 1 unit(s) 342991 RxNorm INJECT INTO 1 EACH SUBCUTANEOU S TWICE A DAY OXcarbazepine 300MG Oral Tablet 11/17/2023 Unknown ORAL TWICE A DAY 300 MILLIGRA MS 912363 RxNorm TAKE 300 MILLIGRAMS ORAL TWICE A DAY Pantoprazole Sodium 40 MG Oral Tablet, Delayed Release 11/17/2023 Unknown ORAL ONCE A DAY 40 MG 275777 RxNorm TAKE 40 MG ORAL ONCE A DAY Sertraline 100MG Oral Tablet 11/17/2023 Unknown ORAL ONCE A DAY 200 MILLIGRA MS 030519 RxNorm TAKE 200 MILLIGRAMS ORAL ONCE A DAY TobraDex ST 0.05%-0.3% Ophthalmic Suspension 11/17/2023 Unknown OPHTHALMIC FOUR TIMES A DAY 1 unit(s) 4261693 RxNorm 1 EACH OPHTHALMIC FOUR TIMES A DAY Tylenol 325MG Oral Tablet 11/17/2023 Unknown ORAL NEEDED EVERY 4 HOURS 650 MILLIGRA MS 702303 RxNorm TAKE 650 MILLIGRAMS ORAL NEEDED EVERY [...] Co de Code System PCN (penicillin) Active 9175462 SNOMED- CT AZITHROMYCIN Active 12382 RxNorm Plan of Treatment MRI Brain WO Contrast (56180) 4 Encounters Encounter Diagnosis Start Date Code Code Sys tem Other chcf (current) drug therapy 05/15/2024 SNOMED-CT Personal Care Team Section Performer Name Performer Role Active Date Inactive JULIO CESAR Witt PCP - Primary care physician 2023-02-04
--- OUTSIDE RECORDS SUMMARY | 2025-03-07 08:53 | XMS_ITS ---
Author Organization Unknown Address [address] [place] [phone] Phone Care Team Providers Care Community Relations Advisor Name Role Phone VICKY HARRELL Hugo Attending [...] Results LIPID PANEL - Collect Date/T zoila: 01/06/2024 06:40 [facility] ID: [id number] [place], [place], [id number] LOINC: 75182-4 Test Value Unit Reference Range Code Code System Flag FASTING YES CHOLESTEROL 100 mg/dL L=0 H=200 2093-3 LOINC TRIGLYCERIDE 52 mg/dL L=0 H=150 2571-8 LOINC HDL 37 mg/dL L=40 H=60 2085-9 LOINC L LDL 57 mg/dL 2088-1 LOINC COMPREHENSIVE METABOLIC PANE L - Collect Date/Time: 01/06/2024 06:40 [facility] ID: [id number] [address] [place], [place], [id number] LOINC: 23155-5 Test Value Unit Reference Range Code Code System Flag FASTING YES BUN 26 mg/dL L=7 H=20 3094-0 LOINC H CREATININE 0.90 mg/dL L=0.66 H=1.25 2160-0 LOINC GLUCOSE 92 mg/dL L=74 H=106 2345-7 LOINC SODIUM 132 mmol/L L=132 H=144 2951-2 LOINC POTASSIUM 4.7 mmol/L L=3.5 H=5.1 2823-3 LOINC CHLORIDE 99 mmol/L L=98 H=107 2075-0 LOINC CO2 27.0 mmol/L L=22.0 H=30.0 2027-9 LOINC ANION GAP 11 L=10 H=20 86852-3 LOINC OSMOLALITY 278 mOs/kG L=280 H=296 50954-6 LOINC L BUN/CREAT 28.9 3097-3 LOINC CALCIUM 8.7 mg/dL L=8.3 H=10.5 34826-0 LOINC AST 33 U/L L=15 H=46 1920-8 LOINC ALT 28 U/L L=9 H=72 1742-6 LOINC ALKALINE PHOS 75 U/L L=38 H=126 6768-6 LOINC TOTAL BILI 0.2 mg/dL L=0.2 H=1.3 1975-2 LOINC ALBUMIN 3.5 G/dL L=3.5 H=5.0 1751-7 LOINC TOTAL PROTEIN 6.7 g/L L=6.3 H=8.2 2885-2 LOINC A/G RATIO 1.1 28731-4 LOINC AGE 48 17411-4 LOINC eGFR NON-AFR 97 ml/min eGFR AFR AMER 117 ml/min HEPATITIS C AB (HCV Ab) - Co llect Date/Time: 01/06/2024 06:40 [facility] ID: [id number] [place] [address], [id number] LOINC: 74039-6 Test Value Unit Reference Range Code Code System Flag Hep C Virus Ab Non Reactive Non Reactive 11565-7 LOINC SEND TO IFC? NO HIV 4th GEN Ab 1&2 p24 Ag in -house - Collect Date/Time: 01/06/2024 06:40 [facility] ID: [id number] [address] [place] [address], [id number] LOINC: 02641-1 Test Value Unit Reference Range Code Code System Flag HIV-1 Ab NEGATIVE NORMAL: NON REACTIVE/NE HIV-2 Ab NEGATIVE HIV-p24 Ag NEGATIVE SEND TO IFC? NO REFLEX? NO 5778-6 LOINC HGB A1C -GLYCOHEMOGLOBIN - C ollect Date/Time: 01/06/2024 06:40 [facility] ID: [id number] [address] [place] [address], [id number] LOINC: 4548-4 Test Value Unit Reference Range Code Code System Flag HGBA1C 6.9 % 4548-4 LOINC CBC W/ DIFF - Collect Date/T zoila: 01/06/2024 06:40 [facility] ID: [id number] [place] [address], [id number] LOINC: 31660-6 Test Value Unit Reference Range Code Code System Flag WBC 3.0 10^3uL L=4.8 H=10.8 L RBC 3.71 10^6uL L=4.60 H=6.20 L HEMOGLOBIN 10.3 g/dL L=14.0 H=18.0 718-7 LOINC L HEMATOCRIT 31.0 VOL% L=42.0 H=52.0 4544-3 LOINC L MCV 83.6 fL L=80.0 H=94.0 MCH 27.8 pg L=27.0 H=32.0 MCHC 33.2 g/dL L=32.0 H=36.0 PLATELETS 276 10^3uL L=100 H=400 92012-3 LOINC RDW 13.8 % L=11.7 H=15.5 %GRAN L=40.0 H=70.0 51760-4 LOINC %LYMPH L=20.0 H=45.0 736-9 LOINC %MONO L=2.0 H=10.0 84878-4 LOINC %EOS L=0.0 H=6.0 713-8 LOINC %BASO L=0.0 H=3.0 706-2 LOINC #NEUT L=1.9 H=7.6 33752-8 LOINC #LYMPH L=0.9 H=4.9 44153-0 LOINC #MONO L=0.1 H=0.9 47876-1 LOINC #EOS L=0.0 H=0.6 712-0 LOINC #BASO L=0.00 H=0.10 43902-5 LOINC #IM GRANS L=0.0 H=7.0 59983-2 LOINC %IM GRANS L=0.0 H=5.0 96950-5 LOINC %NRB L=0.0 H=0.2 53363-8 LOINC #NRB L=0.000 H=0.012 11502-1 LOINC MANUAL DIFF SEE BELOW A SEG 33 % L=40 H=70 L BANDS 0 % L=0 H=6 LYMPH 57 % L=20 H=45 H MONO 9.0 % L=2.0 H=10.0 EOS 0 % L=0 H=6 713-8 LOINC BASO 1 % L=0 H=3 IM GRANS 0 % L=0 H=5 METAS 0 % L=0 H=0 MYELOS 0 % L=0 H=0 PROMYELOS 0 % L=0 H=0 BLASTS 0 % L=0 H=0 02429-9 LOINC KYLE LYMPHS 0.00 % L=0.00 H=5.00 SMUDGE CELLS 0 % L=0 H=0 NRBC 0.0 % L=0.0 H=0.0 PLTS APPEAR NORMAL NEUT # 1.0 10^3uL L=1.9 H=7.6 LL CALLED TO: [facility] AT: 0800 01/06/24 BY: YULIET LYMPH # 1.7 10^3uL L=0.9 H=4.9 MONO # 0.3 10^3uL L=0.1 H=0.9 EOS # 0.0 10^3uL L=0.0 H=0.6 712-0 LOINC BASO # 0.0 10^3uL L=0.0 H=0.1 65318-8 LOINC RBC MORPH NOT INDICATED Social History Type Status Start Date End Date Code Code Syst em Smoking History Current every day smoker [id number] SNOMED CT Sex Male Medications Medication Start Date End Date Route Frequency Dose Code Code System Medication Instructions Home Meds Albuterol Sulfate 0.09MG/1Actuation Inhalation Suspension 11/17/2023 Unknown INHALATION NEEDED EVERY 4 HOURS 1 unit(s) 5483963 RxNorm 1 EACH INHALATION NEEDED EVERY 4 HOURS Atorvastatin Calcium 10MG Oral Tablet 11/17/2023 Unknown ORAL ONCE A DAY 10 MILLIGRA MS 889300 RxNorm TAKE 10 MILLIGRAMS ORAL ONCE A DAY Levothyroxine 25MCG Oral Tablet 11/17/2023 Unknown ORAL ONCE A DAY 25 MCG 308287 RxNorm TAKE 25 MCG ORAL ONCE A DAY Lisinopril 2.5MG Oral Tablet 11/17/2023 Unknown ORAL ONCE A DAY 2.5 MILLIGRA MS 831914 RxNorm TAKE 2.5 MILLIGRAMS ORAL ONCE A DAY Lybalvi 10 MG-10 MG Oral Tablet 11/17/2023 Unknown ORAL ONCE A DAY 1 unit(s) 0122894 RxNorm TAKE 1 EACH ORAL ONCE A DAY Naproxen 500MG Oral Tablet 11/17/2023 Unknown ORAL NEEDED EVERY 12 HOURS 500 MILLIGRA MS 072140 RxNorm TAKE 500 MILLIGRAMS ORAL NEEDED EVERY 12 HOURS NovoLOG Mix 70/30 FlexPen 70U-30U/1ML Subcutaneous Suspension 11/17/2023 Unknown SUBCUTANEOU S TWICE A DAY 1 unit(s) 215733 RxNorm INJECT INTO 1 EACH SUBCUTANEOU S TWICE A DAY OXcarbazepine 300MG Oral Tablet 11/17/2023 Unknown ORAL TWICE A DAY 300 MILLIGRA MS 424271 RxNorm TAKE 300 MILLIGRAMS ORAL TWICE A DAY Pantoprazole Sodium 40 MG Oral Tablet, Delayed Release 11/17/2023 Unknown ORAL ONCE A DAY 40 MG 983424 RxNorm TAKE 40 MG ORAL ONCE A DAY Sertraline 100MG Oral Tablet 11/17/2023 Unknown ORAL ONCE A DAY 200 MILLIGRA MS 108193 RxNorm TAKE 200 MILLIGRAMS ORAL ONCE A DAY TobraDex ST 0.05%-0.3% Ophthalmic Suspension 11/17/2023 Unknown OPHTHALMIC FOUR TIMES A DAY 1 unit(s) 1190959 RxNorm 1 EACH OPHTHALMIC FOUR TIMES A DAY Tylenol 325MG Oral Tablet 11/17/2023 Unknown ORAL NEEDED EVERY 4 HOURS 650 MILLIGRA MS 391520 RxNorm TAKE 650 MILLIGRAMS ORAL NEEDED EVERY [...] Co de Code System PCN (penicillin) Active 6327133 SNOMED- CT AZITHROMYCIN Active 18525 RxNorm Plan of Treatment MRI Brain WO Contrast (81227) 4 Encounters Encounter Diagnosis Start Date Code Code Sys tem Other fpc (current) drug therapy 01/06/2024 SNOMED-CT Personal Care Team Section Performer Name Performer Role Active Date Inactive JULIO CESAR Witt PCP - Primary care physician 2023-02-04
--- OUTSIDE RECORDS SUMMARY | 2025-03-07 08:53 | XMS_ITS | Patient Health Record ---
Author Organization [facility] As SCHEDit Address [address] [place] [address] Care Team Providers Care Asthma Educator Name Role Phone Silva Segovia Unavailable [phone] Reason For Referral No Information Medications Medication SIG (Take, Route, Frequency, Duration) Notes Start Date End Date Status NOVOFINE 32 32 gauge x 1/4 MISCELLANEOUS *Reorder from [facility] for eRx and Interaction Alerts* 11/12/2022 Active metFORMIN HCl 1000 MG Oral 11/12/2022 Active Divalproex Sodium 250 MG Oral 11/12/2022 Active Atorvastatin Calcium 10 MG Oral 11/12/2022 Active Pantoprazole Sodium 40 MG Oral 11/12/2022 Active FREESTYLE EDDIE 2 SENSOR KIT *Reorder from [facility] for eRx and Interaction Alerts* 11/12/2022 Active Depakote 250 MG Oral 11/12/2022 Act nikita Furosemide 20 MG Oral 11/12/2022 Ac tive VICTOZA 2-CECIL 0.6 mg/0.1 mL (18 mg/3 mL) Subcutaneous *Reorder from [facility] for eRx and Interaction Alerts* 11/12/2022 Active Acetaminophen 325 MG Oral 11/12/2022 Active BD ULTRA-FINE PEN NEEDLE 31 gauge x 3/16 MISCELLANEOUS *Reorder from [facility] for eRx and Interaction Alerts* 11/12/2022 Active FreeStyle Lancets 28 gauge MISCELLANEOUS 11/12/2022 Active busPIRone HCl 5 MG Oral 11/12/2022 Active Lisinopril 10 MG Oral 11/12/2022 Ac tive traMADol HCl 50 MG Oral 11/12/2022 Active busPIRone HCl 10 MG Oral 11/12/2022 Active Furosemide 40 MG Oral 11/12/2022 Ac tive Lisinopril 5 MG Oral 11/12/2022 Act nikita TRULICITY 3 MG/0.5 ML SUBCUTANEOUS PEN INJECTOR *Reorder from [facility] for eRx and Interaction Alerts* 11/12/2022 Active Levothyroxine Sodium 75 MCG Oral 11/12/2022 Active NovoLOG Mix 70/30 FlexPen (70-30) 100 UNIT/ML Subcutaneous 11/12/2022 Active OneTouch Ultra In Vitro 11/12/2022 Acti ve Naproxen 500 MG Oral 11/12/2022 Act nikita Tobramycin-dexAMETHa sone 0.3-0.1 % Ophthalmic 11/12/2022 Active OneTouch Delica Plus Eowxik32Z 11/12/2022 Active Sertraline HCl 100 MG Oral 11/12/2022 Active EUTHYROX 75 MCG TABLET *Reorder from [facility] for eRx and Interaction Alerts* 11/12/2022 Active Plan Of Treatment No Information Insurance Providers Payer Name Payer Address Payer Phone Subscriber Number Group Number Insured Name Patient Relationship to Insured Coverage Start Date Coverage End Date [employer] Medicare Replacement/ Advantage - Ppo [address] [place] [phone] [id number] JAMES JONES Self - patient is the insured Aetna [facility] Medicaid Replacement - Hmo [address] [place] [id number] JAMES JONES Self - patient is the insured
--- OUTSIDE RECORDS SUMMARY | 2025-03-07 08:53 | XMS_ITS ---
Author Organization Unknown Address [address] [place] [phone] Phone Care Team Providers Care Nursing Informatics Specialist Name Role Phone VICKY Arias Attending Unavailable Immunization Immunization Date Status Additional [...] mcg/0.3 mL 10/17/2023 Completed 309 CVX Results MRI BRAIN WO CONTRAST - Comp leted: 03/05/2024 15:11 LOINC: 79104-3 EXAM DESCRIPTION: MRI BRAIN WO CONTRAST REASON FOR STUDY: +/-2 weeks of strabismus, noticed by care providers but not by the patient; no affect on eyesight, per pt; as a child, the pt had sx on his eye musculature for similar condition; providers wanting to rule out a brain-sourced cause, per care provider who accompanied the pt from his facility. No trauma noted. Duration: c.2 weeks. Previous Surgery: STRABISMUS SX ( A KID) and CATARACTS (1-2 YRS AGO). TECHNIQUE: Multiplanar imaging includes non-contrasted T1, T2, FLAIR, and diffusion with ADC map sequences. Additional sequence(s) sensitive to blood products. Images stored on PACS. COMPARISON: No prior studies are available for comparison at time of this dictation. FINDINGS: CEREBRUM: No hemorrhage, edema, or mass effect. WHITE MATTER: Normal. POSTERIOR FOSSA: Brainstem and cerebellum appear unremarkable. DIFFUSION IMAGING: No recent infarction. EXTRAAXIAL SPACES: No hemorrhage. No mass. BRAIN VOLUME: Within normal limits for age. PITUITARY: Unremarkable. VASCULATURE: No flow disturbance identified. ORBITS: Bilateral lens replacements. PARANASAL SINUSES AND MASTOIDS: Well-aerated with no fluid levels. No mucosa thickening. OTHER: Well-circumscribed 7 mm T1, T2 hypointensity within the left parietal scalp (series 9001, image 26) likely represents a benign nonspecific skin lesion. IMPRESSION: Normal brain MRI. THIS IS AN ELECTRONICALLY VERIFIED FINAL REPORT 03/06/2024 8:40 AM - Electronically signed by Sebas Tong M.D. MM: MM Report ID: [id number] Reading Location: [place] [address] Social History Type Status Start Date End Date Code Code Syst em Smoking History Current every day smoker [id number] SNOMED CT Sex Male Medications Medication Start Date End Date Route Frequency Dose Code Code System Medication Instructions Home Meds Albuterol Sulfate 0.09MG/1Actuation Inhalation Suspension 11/17/2023 Unknown INHALATION NEEDED EVERY 4 HOURS 1 unit(s) 7080868 RxNorm 1 EACH INHALATION NEEDED EVERY 4 HOURS Atorvastatin Calcium 10MG Oral Tablet 11/17/2023 Unknown ORAL ONCE A DAY 10 MILLIGRA MS 295474 RxNorm TAKE 10 MILLIGRAMS ORAL ONCE A DAY Levothyroxine 25MCG Oral Tablet 11/17/2023 Unknown ORAL ONCE A DAY 25 MCG 093036 RxNorm TAKE 25 MCG ORAL ONCE A DAY Lisinopril 2.5MG Oral Tablet 11/17/2023 Unknown ORAL ONCE A DAY 2.5 MILLIGRA MS 809358 RxNorm TAKE 2.5 MILLIGRAMS ORAL ONCE A DAY Lybalvi 10 MG-10 MG Oral Tablet 11/17/2023 Unknown ORAL ONCE A DAY 1 unit(s) 9620993 RxNorm TAKE 1 EACH ORAL ONCE A DAY Naproxen 500MG Oral Tablet 11/17/2023 Unknown ORAL NEEDED EVERY 12 HOURS 500 MILLIGRA MS 278641 RxNorm TAKE 500 MILLIGRAMS ORAL NEEDED EVERY 12 HOURS NovoLOG Mix 70/30 FlexPen 70U-30U/1ML Subcutaneous Suspension 11/17/2023 Unknown SUBCUTANEOU S TWICE A DAY 1 unit(s) 353037 RxNorm INJECT INTO 1 EACH SUBCUTANEOU S TWICE A DAY OXcarbazepine 300MG Oral Tablet 11/17/2023 Unknown ORAL TWICE A DAY 300 MILLIGRA MS 202134 RxNorm TAKE 300 MILLIGRAMS ORAL TWICE A DAY Pantoprazole Sodium 40 MG Oral Tablet, Delayed Release 11/17/2023 Unknown ORAL ONCE A DAY 40 MG 675573 RxNorm TAKE 40 MG ORAL ONCE A DAY Sertraline 100MG Oral Tablet 11/17/2023 Unknown ORAL ONCE A DAY 200 MILLIGRA MS 961161 RxNorm TAKE 200 MILLIGRAMS ORAL ONCE A DAY TobraDex ST 0.05%-0.3% Ophthalmic Suspension 11/17/2023 Unknown OPHTHALMIC FOUR TIMES A DAY 1 unit(s) 3823408 RxNorm 1 EACH OPHTHALMIC FOUR TIMES A DAY Tylenol 325MG Oral Tablet 11/17/2023 Unknown ORAL NEEDED EVERY 4 HOURS 650 MILLIGRA MS 165381 RxNorm TAKE 650 MILLIGRAMS ORAL NEEDED EVERY [...] Co de Code System PCN (penicillin) Active 8290223 SNOMED- CT AZITHROMYCIN Active 46651 RxNorm Plan of Treatment MRI Brain WO Contrast (58561) 4 Encounters Encounter Diagnosis Start Date Code Code Sys tem Unspecified strabismus 03/05/2024 SNOME D-CT Personal Care Team Section Performer Name Performer Role Active Date Inactive Da JULIO CESAR Landeros PCP - Primary care physician 2023-02-04 Imaging Narrative Notes
--- OUTSIDE RECORDS SUMMARY | 2025-03-07 08:53 | XMS_ITS ---
Author Organization Unknown Address [address] [place] [phone] Phone Care Team Providers Care Manager Sterile Processing Name Role Phone VICKY HARRELL Hugo Attending [...] CBC W/O DIFF - Collect Date/ Time: 09/14/2024 07:31 [facility] ID: [id number] [address] [place], [place], [phone] LOINC: 33435-8 Test Value Unit Reference Range Code Code System Flag WBC 4.8 10^3uL L=4.8 H=10.8 RBC 4.50 10^6uL L=4.60 H=6.20 L HEMOGLOBIN 12.8 g/dL L=14.0 H=18.0 718-7 LOINC L HEMATOCRIT 39.4 VOL% L=42.0 H=52.0 4544-3 LOINC L MCV 87.6 fL L=80.0 H=94.0 MCH 28.4 pg L=27.0 H=32.0 MCHC 32.5 g/dL L=32.0 H=36.0 PLATELETS 260 10^3uL L=100 H=400 82092-1 LOINC RDW 13.4 % L=11.7 H=15.5 COMPREHENSIVE METABOLIC PANE L - Collect Date/Time: 09/14/2024 07:31 [facility] ID: [id number] [address] [place], [place], [phone] LOINC: 95746-1 Test Value Unit Reference Range Code Code System Flag FASTING YES BUN 24 mg/dL L=7 H=20 3094-0 LOINC H CREATININE 1.00 mg/dL L=0.66 H=1.25 2160-0 LOINC GLUCOSE 178 mg/dL L=74 H=106 2345-7 LOINC H SODIUM 140 mmol/L L=132 H=144 2951-2 LOINC POTASSIUM 4.2 mmol/L L=3.5 H=5.1 2823-3 LOINC CHLORIDE 105 mmol/L L=98 H=107 2075-0 LOINC CO2 23.0 mmol/L L=22.0 H=30.0 2028-9 LOINC ANION GAP 16 L=10 H=20 12514-1 LOINC OSMOLALITY 298 mOs/kG L=280 H=296 08928-7 LOINC H BUN/CREAT 24.0 3097-3 LOINC CALCIUM 9.1 mg/dL L=8.3 H=10.5 14607-0 LOINC AST 28 U/L L=15 H=46 1920-8 LOINC ALT 23 U/L L=9 H=72 1742-6 LOINC ALKALINE PHOS 70 U/L L=38 H=126 6768-6 LOINC TOTAL BILI 0.3 mg/dL L=0.2 H=1.3 1975-2 LOINC ALBUMIN 4.2 G/dL L=3.5 H=5.0 1751-7 LOINC TOTAL PROTEIN 8.2 g/L L=6.3 H=8.2 2885-2 LOINC A/G RATIO 1.1 72792-0 LOINC AGE 48 90865-0 LOINC eGFR NON-AFR 86 ml/min eGFR AFR AMER 104 ml/min LIPID PANEL - Collect Date/T zoila: 09/14/2024 07:31 [facility] ID: [id number] [place] [address], [phone] LOINC: 74371-0 Test Value Unit Reference Range Code Code System Flag FASTING YES CHOLESTEROL 152 mg/dL L=0 H=200 2093-3 LOINC TRIGLYCERIDE 167 mg/dL L=0 H=150 2571-8 LOINC H HDL 32 mg/dL L=40 H=60 2085-9 LOINC L LDL 82 mg/dL 2088-1 LOINC HGB A1C -GLYCOHEMOGLOBIN - C ollect Date/Time: 09/14/2024 07:31 [facility] ID: [id number] [place] [address], [phone] LOINC: 4548-4 Test Value Unit Reference Range Code Code System Flag HGBA1C 9.5 % 4548-4 LOINC Social History Type Status Start Date End Date Code Code Syst em Smoking History Current every day smoker 083779052 SNOMED CT Sex Male Medications Medication Start Date End Date Route Frequency Dose Code Code System Medication Instructions Home Meds Albuterol Sulfate 0.09MG/1Actuation Inhalation Suspension 11/17/2023 Unknown INHALATION NEEDED EVERY 4 HOURS 1 unit(s) 1310624 RxNorm 1 EACH INHALATION NEEDED EVERY 4 HOURS Atorvastatin Calcium 10MG Oral Tablet 11/17/2023 Unknown ORAL ONCE A DAY 10 MILLIGRA MS 070334 RxNorm TAKE 10 MILLIGRAMS ORAL ONCE A DAY Levothyroxine 25MCG Oral Tablet 11/17/2023 Unknown ORAL ONCE A DAY 25 MCG 317138 RxNorm TAKE 25 MCG ORAL ONCE A DAY Lisinopril 2.5MG Oral Tablet 11/17/2023 Unknown ORAL ONCE A DAY 2.5 MILLIGRA MS 397793 RxNorm TAKE 2.5 MILLIGRAMS ORAL ONCE A DAY Lybalvi 10 MG-10 MG Oral Tablet 11/17/2023 Unknown ORAL ONCE A DAY 1 unit(s) 5555003 RxNorm TAKE 1 EACH ORAL ONCE A DAY Naproxen 500MG Oral Tablet 11/17/2023 Unknown ORAL NEEDED EVERY 12 HOURS 500 MILLIGRA MS 018346 RxNorm TAKE 500 MILLIGRAMS ORAL NEEDED EVERY 12 HOURS NovoLOG Mix 70/30 FlexPen 70U-30U/1ML Subcutaneous Suspension 11/17/2023 Unknown SUBCUTANEOU S TWICE A DAY 1 unit(s) 581424 RxNorm INJECT INTO 1 EACH SUBCUTANEOU S TWICE A DAY OXcarbazepine 300MG Oral Tablet 11/17/2023 Unknown ORAL TWICE A DAY 300 MILLIGRA MS 338709 RxNorm TAKE 300 MILLIGRAMS ORAL TWICE A DAY Pantoprazole Sodium 40 MG Oral Tablet, Delayed Release 11/17/2023 Unknown ORAL ONCE A DAY 40 MG 003287 RxNorm TAKE 40 MG ORAL ONCE A DAY Sertraline 100MG Oral Tablet 11/17/2023 Unknown ORAL ONCE A DAY 200 MILLIGRA MS 870145 RxNorm TAKE 200 MILLIGRAMS ORAL ONCE A DAY TobraDex ST 0.05%-0.3% Ophthalmic Suspension 11/17/2023 Unknown OPHTHALMIC FOUR TIMES A DAY 1 unit(s) 9511949 RxNorm 1 EACH OPHTHALMIC FOUR TIMES A DAY Tylenol 325MG Oral Tablet 11/17/2023 Unknown ORAL NEEDED EVERY 4 HOURS 650 MILLIGRA MS 993529 RxNorm TAKE 650 MILLIGRAMS ORAL NEEDED EVERY [...] Co de Code System PCN (penicillin) Active 6740546 SNOMED- CT AZITHROMYCIN Active 36503 RxNorm Plan of Treatment MRI Brain WO Contrast (75266) 4 Encounters Encounter Diagnosis Start Date Code Code Sys tem Type 2 diabetes mellitus without complications 025 SNOMED-CT Personal Care Team Section Performer Name Performer Role Active Date Inactive JULIO CESAR Witt PCP - Primary care physician 2023-02-04
--- OUTSIDE RECORDS SUMMARY | 2025-03-07 08:54 | XMS_ITS ---
Author Organization Unknown Address [address] [place] [phone] Phone Care Team Providers Care Medical Transport Specialist Name Role Phone RASHIDA Maravilla CATHLEEN Attending [...] mL 10/17/2023 Completed 309 CVX Results CBC W/ DIFF - Collect Date/T zoila: 08/02/2023 22:20 [facility] ID: [id number] [address] [place], [place], [phone] LOINC: 69062-8 Test Value Unit Reference Range Code Code System Flag WBC 3.6 10^3uL L=4.8 H=10.8 L RBC 4.37 10^6uL L=4.60 H=6.20 L HEMOGLOBIN 11.8 g/dL L=14.0 H=18.0 718-7 LOINC L HEMATOCRIT 35.7 VOL% L=42.0 H=52.0 4544-3 LOINC L MCV 81.7 fL L=80.0 H=94.0 MCH 27.0 pg L=27.0 H=32.0 MCHC 33.1 g/dL L=32.0 H=36.0 PLATELETS 288 10^3uL L=100 H=400 61306-0 LOINC RDW 12.9 % L=11.7 H=15.5 %GRAN 48.3 % L=40.0 H=70.0 66149-9 LOINC %LYMPH 41.4 % L=20.0 H=45.0 736-9 LOINC %MONO 9.1 % L=2.0 H=10.0 54654-5 LOINC %EOS 0.6 % L=0.0 H=6.0 713-8 LOINC %BASO 0.6 % L=0.0 H=3.0 706-2 LOINC #NEUT 1.8 10^3uL L=1.9 H=7.6 67439-2 LOINC L #LYMPH 1.5 10^3uL L=0.9 H=4.9 58112-4 LOINC #MONO 0.3 10^3uL L=0.1 H=0.9 93889-9 LOINC #EOS 0.0 10^3uL L=0.0 H=0.6 712-0 LOINC #BASO 0.02 10^3uL L=0.00 H=0.10 76103-5 LOINC #IM GRANS 0.0 10^3uL L=0.0 H=7.0 70175-9 LOINC %IM GRANS 0.0 % L=0.0 H=5.0 72271-9 LOINC %NRB 0.0 L=0.0 H=0.2 13554-6 LOINC #NRB 0.000 L=0.000 H=0.012 93997-7 LOINC MANUAL DIFF NOT INDICATED RBC MORPH NOT INDICATED LIVER PROFILE - Collect Date /Time: 08/02/2023 22:20 [facility] ID: [id number] [address] [place] [address], [id number] LOINC: 23869-0 Test Value Unit Reference Range Code Code System Flag ALT 23 U/L L=9 H=72 1742-6 LOINC AST 30 U/L L=15 H=46 1920-8 LOINC ALKALINE PHOS 97 U/L L=38 H=126 6768-6 LOINC TOTAL PROTEIN 8.6 g/L L=6.3 H=8.2 2885-2 LOINC H TOTAL BILI 0.3 mg/dL L=0.2 H=1.3 1974-2 LOINC DIRECT BILI 0.0 mg/dL L=0.0 H=0.3 1967-7 LOINC INDIRECT BILI 0.10 mg/dL L=0.00 H=1.10 1970- LOINC ALBUMIN 4.8 G/dL L=3.5 H=5.0 1751-7 LOINC MAGNESIUM - Collect Date/Chang e: 08/02/2023 22:20 [facility] ID: [id number] [address] [place] [address], [phone] LOINC: 51797-4 Test Value Unit Reference Range Code Code System Flag MAGNESIUM 1.8 mg/dL L=1.6 H=2.3 73583-8 LOINC OD [id number] YLATE-ETOH - Collect Date/Time: 08/02/2023 22:20 [facility] ID: [id number] [address] [place] [address], [id number] LOINC: Test Value Unit Reference Range Code Code System Flag ACETAMINOPHEN < 10 ug/dL L=0 H=10 3298-7 LOINC SALICYLATE < 1 mg/dL L=0 H=5 4024-6 LOINC ALCOHOL < 10.00 mg/dL L=0.00 H=50.00 5643-2 LOINC TSH - Collect Date/Time: 07/2023 22:20 [facility] ID: [id number] [address] [place] [address], [phone] LOINC: 64207-6 Test Value Unit Reference Range Code Code System Flag TSH. 8.190 uIU/L L=0.470 H=4.680 08828-4 LOINC H BASIC METABOLIC PANEL - Gladys ect Date/Time: 08/02/2023 22:20 [facility] ID: [id number] [address] [place] [address], [id number] LOINC: 39668-2 Test Value Unit Reference Range Code Code System Flag FASTING UNKNOWN BUN 19 mg/dL L=7 H=20 3094-0 LOINC CREATININE 0.80 mg/dL L=0.66 H=1.25 2160-0 LOINC GLUCOSE 84 mg/dL L=74 H=106 2345-7 LOINC CALCIUM 9.4 mg/dL L=8.3 H=10.5 06423-6 LOINC SODIUM 130 mmol/L L=132 H=144 2951-2 LOINC L POTASSIUM 4.2 mmol/L L=3.5 H=5.1 2823-3 LOINC CHLORIDE 95 mmol/L L=98 H=107 2075-0 LOINC L CO2 22.0 mmol/L L=22.0 H=30.0 2028-9 LOINC ANION GAP 17 L=10 H=20 40046-5 LOINC BUN/CREAT 23.8 3097-3 LOINC AGE 47 66733-5 LOINC eGFR NON-AFR 111 ml/min eGFR AFR AMER 134 ml/min URINE DRUG SCREEN 12 PANEL R APID - Collect Date/Time: 08/02/2023 22:03 [facility] ID: [id number] [address] [place] [address], [phone] LOINC: Test Value Unit Reference Range Code Code System Flag THC NEGATIVE PCP NEGATIVE COCAINE NEGATIVE 14909-6 LOINC METHAMPHETAMINES NEGATIVE OPIATES NEGATIVE AMPHETAMINES NEGATIVE 13432-6 LOINC BENZO NEGATIVE 66479-1 LOINC TCA NEGATIVE METHADONE NEGATIVE BARBITUATES NEGATIVE OXYCODONE NEGATIVE SARS COV2 PCR - Collect Date /Time: 08/02/2023 22:03 [facility] ID: [id number] [place], [place], [id number] LOINC: 29340-1 Test Value Unit Reference Range Code Code System Flag SARS COV2 PCR NEGATIVE 65816-0 LOINC SENT TO THE [facility] RN? YES A URINALYSIS w/Microscopy/C&S if indicated - Collect Date/Time: 08/02/2023 22:03 [facility] ID: [id number] [place], [place], [id number] LOINC: 93391-0 Test Value Unit Reference Range Code Code System Flag UR SOURCE UNKNOWN 42054-1 LOINC COLOR LT YELLOW YELLOW 5778-6 LOINC CLARITY CLEAR CLEAR 12358-7 LOINC SPEC GRAVITY 1.020 1.000-1.030 5811-5 LOINC PH 7.5 5.0 - 6.5 5803-2 LOINC LEUK EST NEGATIVE NEGATIVE 5799-2 LOINC NITRATE NEGATIVE NEGATIVE PROTEIN 1+ NEGATIVE 5804-0 LOINC A GLUCOSE NEGATIVE NEGATIVE 78420-9 LOINC KETONES NEGATIVE NEGATIVE 81038-5 LOINC UROBILINOGEN 0.2 NEGATIVE 5818-0 LOINC BILIRUBIN NEGATIVE NEGATIVE 72864-1 LOINC BLOOD 1+ NEGATIVE 04269-8 LOINC WBC 0-2 0 - 2 00938-6 LOINC RBC 2-5 0 - 2 71487-4 LOINC EPITHELIAL OCCASIONA RARE-FEW 79551-7 LOINC BACTERIA FEW NONE SEEN 14752-9 LOINC MUCUS FEW NONE SEEN 8247-9 LOINC YEAST NOT PRESENT NOT PRESENT 62016-7 LOINC CASTS NONE SEEN 95271-5 LOINC CRYSTALS NONE SEEN 49685-3 LOINC CULTURE? NO 8251-1 LOINC DIAGNOSIS N/A Social History Type Status Start Date End Date Code Code Syst em Smoking History Current every day smoker [id number] [facility] CT Sex Male Medications Medication Start Date End Date Route Frequency Dose Code Code System Medication Instructions Home Meds Albuterol Sulfate 0.09MG/1Actuation Inhalation Suspension 11/17/2023 Unknown INHALATION NEEDED EVERY 4 HOURS 1 unit(s) 8722744 RxNorm 1 EACH INHALATION NEEDED EVERY 4 HOURS Atorvastatin Calcium 10MG Oral Tablet 11/17/2023 Unknown ORAL ONCE A DAY 10 MILLIGRA MS 925037 RxNorm TAKE 10 MILLIGRAMS ORAL ONCE A DAY Levothyroxine 25MCG Oral Tablet 11/17/2023 Unknown ORAL ONCE A DAY 25 MCG 791149 RxNorm TAKE 25 MCG ORAL ONCE A DAY Lisinopril 2.5MG Oral Tablet 11/17/2023 Unknown ORAL ONCE A DAY 2.5 MILLIGRA MS 732399 RxNorm TAKE 2.5 MILLIGRAMS ORAL ONCE A DAY Lybalvi 10 MG-10 MG Oral Tablet 11/17/2023 Unknown ORAL ONCE A DAY 1 unit(s) 8653933 RxNorm TAKE 1 EACH ORAL ONCE A DAY Naproxen 500MG Oral Tablet 11/17/2023 Unknown ORAL NEEDED EVERY 12 HOURS 500 MILLIGRA MS 846014 RxNorm TAKE 500 MILLIGRAMS ORAL NEEDED EVERY 12 HOURS NovoLOG Mix 70/30 FlexPen 70U-30U/1ML Subcutaneous Suspension 11/17/2023 Unknown SUBCUTANEOU S TWICE A DAY 1 unit(s) 507217 RxNorm INJECT INTO 1 EACH SUBCUTANEOU S TWICE A DAY OXcarbazepine 300MG Oral Tablet 11/17/2023 Unknown ORAL TWICE A DAY 300 MILLIGRA MS 322770 RxNorm TAKE 300 MILLIGRAMS ORAL TWICE A DAY Pantoprazole Sodium 40 MG Oral Tablet, Delayed Release 11/17/2023 Unknown ORAL ONCE A DAY 40 MG 700645 RxNorm TAKE 40 MG ORAL ONCE A DAY Sertraline 100MG Oral Tablet 11/17/2023 Unknown ORAL ONCE A DAY 200 MILLIGRA MS 897352 RxNorm TAKE 200 MILLIGRAMS ORAL ONCE A DAY TobraDex ST 0.05%-0.3% Ophthalmic Suspension 11/17/2023 Unknown OPHTHALMIC FOUR TIMES A DAY 1 unit(s) 6852476 RxNorm 1 EACH OPHTHALMIC FOUR TIMES A DAY Tylenol 325MG Oral Tablet 11/17/2023 Unknown ORAL NEEDED EVERY 4 HOURS 650 MILLIGRA MS 173705 RxNorm TAKE 650 MILLIGRAMS ORAL NEEDED EVERY [...] Co de Code System PCN (penicillin) Active 2332042 SNOMED- CT AZITHROMYCIN Active 24392 RxNorm Plan of Treatment MRI Brain WO Contrast (37706) 4 Encounters Encounter Diagnosis Start Date Code Code Sys tem Major depressive disorder, recurrent, unspecified 07/22 SNOMED-CT Personal Care Team Section Performer Name Performer Role Active Date Inactive JULIO CESAR Witt PCP - Primary care physician 2023-02-04
--- OUTSIDE RECORDS SUMMARY | 2025-03-07 08:54 | XMS_ITS ---
Author Organization Unknown Address [address] [place] [phone] Phone Care Team Providers Care Database Developer Name Role Phone VICKY HARRELL Hugo Attending [...] 309 CVX Results TSH - Collect Date/Time: 12/2023 07:50 [facility] ID: [id number] [address] [place], [place], [phone] LOINC: 79043-9 Test Value Unit Reference Range Code Code System Flag TSH. 5.260 uIU/L L=0.470 H=4.680 68508-8 LOINC H MICROALBUMIN - Collect Date/ Time: 06/26/2024 06:25 [facility] ID: [id number] [address] [place], [place], [phone] LOINC: 25243-0 Test Value Unit Reference Range Code Code System Flag MICROALBUMIN 355.1 mg/L L=0.0 H=16.7 90064-8 LOINC H UR CREATININE 74.00 mg/dL L=30.00 H=125 2161-8 LOINC MA/CR 479.9 mg/gCR Social History Type Status Start Date End Date Code Code Syst em Smoking History Current every day smoker 738067807 SNOMED CT Sex Male Medications Medication Start Date End Date Route Frequency Dose Code Code System Medication Instructions Home Meds Albuterol Sulfate 0.09MG/1Actuation Inhalation Suspension 11/17/2023 Unknown INHALATION NEEDED EVERY 4 HOURS 1 unit(s) 8810488 RxNorm 1 EACH INHALATION NEEDED EVERY 4 HOURS Atorvastatin Calcium 10MG Oral Tablet 11/17/2023 Unknown ORAL ONCE A DAY 10 MILLIGRA MS 796701 RxNorm TAKE 10 MILLIGRAMS ORAL ONCE A DAY Levothyroxine 25MCG Oral Tablet 11/17/2023 Unknown ORAL ONCE A DAY 25 MCG 139187 RxNorm TAKE 25 MCG ORAL ONCE A DAY Lisinopril 2.5MG Oral Tablet 11/17/2023 Unknown ORAL ONCE A DAY 2.5 MILLIGRA MS 370040 RxNorm TAKE 2.5 MILLIGRAMS ORAL ONCE A DAY Lybalvi 10 MG-10 MG Oral Tablet 11/17/2023 Unknown ORAL ONCE A DAY 1 unit(s) 7994194 RxNorm TAKE 1 EACH ORAL ONCE A DAY Naproxen 500MG Oral Tablet 11/17/2023 Unknown ORAL NEEDED EVERY 12 HOURS 500 MILLIGRA MS 859576 RxNorm TAKE 500 MILLIGRAMS ORAL NEEDED EVERY 12 HOURS NovoLOG Mix 70/30 FlexPen 70U-30U/1ML Subcutaneous Suspension 11/17/2023 Unknown SUBCUTANEOU S TWICE A DAY 1 unit(s) 299535 RxNorm INJECT INTO 1 EACH SUBCUTANEOU S TWICE A DAY OXcarbazepine 300MG Oral Tablet 11/17/2023 Unknown ORAL TWICE A DAY 300 MILLIGRA MS [id number] RxNorm TAKE 300 MILLIGRAMS ORAL TWICE A DAY Pantoprazole Sodium 40 MG Oral Tablet, Delayed Release 11/17/2023 Unknown ORAL ONCE A DAY 40 MG [id number] RxNorm TAKE 40 MG ORAL ONCE A DAY Sertraline 100MG Oral Tablet 11/17/2023 Unknown ORAL ONCE A DAY 200 MILLIGRA MS [id number] RxNorm TAKE 200 MILLIGRAMS ORAL ONCE A DAY TobraDex ST 0.05%-0.3% Ophthalmic Suspension 11/17/2023 Unknown OPHTHALMIC FOUR TIMES A DAY 1 unit(s) 7755845 RxNorm 1 EACH OPHTHALMIC FOUR TIMES A DAY Tylenol 325MG Oral Tablet 11/17/2023 Unknown ORAL NEEDED EVERY 4 HOURS 650 MILLIGRA MS [id number] RxNorm TAKE 650 MILLIGRAMS ORAL NEEDED EVERY [...] Co de Code System PCN (penicillin) Active [id number] SNOMED- CT AZITHROMYCIN Active 01071 RxNorm Plan of Treatment MRI Brain WO Contrast (36817) 4 Encounters Encounter Diagnosis Start Date Code Code Sys tem Type 2 diabetes mellitus without complications 024 SNOMED-CT Personal Care Team Section Performer Name Performer Role Active Date Inactive JULIO CESAR Witt PCP - Primary care physician 2023-02-04
--- OUTSIDE RECORDS SUMMARY | 2025-03-07 08:54 | XMS_ITS ---
Author Organization Unknown Address [address] [place] [address] [phone] Phone Care Team Providers Care National Account Representative Name Role Phone LÁZARO GREENEN Attending Unavailable VICKY Arias Primary Unavailable Immunization [...] mcg/0.3 mL 10/17/2023 Completed 309 CVX Results WRIST 3V LEFT - Completed: 1 14:38 LOINC: EXAM DESCRIPTION: ? ? WRIST 3V LEFT REASON FOR STUDY: FX FOLLOW-UP FINDINGS: Three views of the left wrist are submitted for interpretation and compared to prior 05/17/2023. A healing severely impacted distal radius fracture is present with mild dorsal displacement. Non bridging callus formation is present. Marked ulnar positive variance with radially displaced ossicle from the distal ulnar styloid. Atherosclerotic vascular calcifications are present. Soft tissue swelling is present about the wrist. IMPRESSION: ? ? Healing severely impacted distal radius fracture with marked ulnar positive variance and displaced ulnar styloid fracture. THIS IS AN ELECTRONICALLY VERIFIED FINAL REPORT 06/13/2023 4:01 PM - Electronically signed by Phillip De La Vega M.D. TH: Report ID: [id number] Reading Location: [id number] Social History Type Status Start Date End Date Code Code Syst em Smoking History Current every day smoker 916081931 SNOMED CT Sex Male Medications Medication Start Date End Date Route Frequency Dose Code Code System Medication Instructions Home Meds Albuterol Sulfate 0.09MG/1Actuation Inhalation Suspension 11/17/2023 Unknown INHALATION NEEDED EVERY 4 HOURS 1 unit(s) 6888426 RxNorm 1 EACH INHALATION NEEDED EVERY 4 HOURS Atorvastatin Calcium 10MG Oral Tablet 11/17/2023 Unknown ORAL ONCE A DAY 10 MILLIGRA MS 374350 RxNorm TAKE 10 MILLIGRAMS ORAL ONCE A DAY Levothyroxine 25MCG Oral Tablet 11/17/2023 Unknown ORAL ONCE A DAY 25 MCG 264258 RxNorm TAKE 25 MCG ORAL ONCE A DAY Lisinopril 2.5MG Oral Tablet 11/17/2023 Unknown ORAL ONCE A DAY 2.5 MILLIGRA MS 888455 RxNorm TAKE 2.5 MILLIGRAMS ORAL ONCE A DAY Lybalvi 10 MG-10 MG Oral Tablet 11/17/2023 Unknown ORAL ONCE A DAY 1 unit(s) 7794836 RxNorm TAKE 1 EACH ORAL ONCE A DAY Naproxen 500MG Oral Tablet 11/17/2023 Unknown ORAL NEEDED EVERY 12 HOURS 500 MILLIGRA MS 591876 RxNorm TAKE 500 MILLIGRAMS ORAL NEEDED EVERY 12 HOURS NovoLOG Mix 70/30 FlexPen 70U-30U/1ML Subcutaneous Suspension 11/17/2023 Unknown SUBCUTANEOU S TWICE A DAY 1 unit(s) 857713 RxNorm INJECT INTO 1 EACH SUBCUTANEOU S TWICE A DAY OXcarbazepine 300MG Oral Tablet 11/17/2023 Unknown ORAL TWICE A DAY 300 MILLIGRA MS 660468 RxNorm TAKE 300 MILLIGRAMS ORAL TWICE A DAY Pantoprazole Sodium 40 MG Oral Tablet, Delayed Release 11/17/2023 Unknown ORAL ONCE A DAY 40 MG 605051 RxNorm TAKE 40 MG ORAL ONCE A DAY Sertraline 100MG Oral Tablet 11/17/2023 Unknown ORAL ONCE A DAY 200 MILLIGRA MS 132019 RxNorm TAKE 200 MILLIGRAMS ORAL ONCE A DAY TobraDex ST 0.05%-0.3% Ophthalmic Suspension 11/17/2023 Unknown OPHTHALMIC FOUR TIMES A DAY 1 unit(s) 3637174 RxNorm 1 EACH OPHTHALMIC FOUR TIMES A DAY Tylenol 325MG Oral Tablet 11/17/2023 Unknown ORAL NEEDED EVERY 4 HOURS 650 MILLIGRA MS 258575 RxNorm TAKE 650 MILLIGRAMS ORAL NEEDED EVERY [...] Co de Code System PCN (penicillin) Active 3909020 SNOMED- CT AZITHROMYCIN Active 62389 RxNorm Plan of Treatment MRI Brain WO Contrast (04371) 4 Encounters Encounter Diagnosis Start Date Code Code Sys tem Unspecified fracture of the lower end of left radius, subsequent encounter for closed fracture with routine healing 06/10/2023 [facility] Personal Care Team Section Performer Name Performer Role Active Date Inactive JULIO CESAR Witt PCP - Primary care physician 2023-02-04 Imaging Narrative Notes
--- OUTSIDE RECORDS SUMMARY | 2025-03-07 08:54 | XMS_ITS ---
Author Organization Unknown Address [address] [place] [address] [phone] Phone Care Team Providers Care Unit Manager Rn Name Role Phone VICKY Arias Attending Unavailable [...] CVX Results WRIST 3V LEFT - Completed: 0 09/06/2023 07:59 LOINC: EXAM DESCRIPTION: WRIST 3V LEFT REASON FOR STUDY: f/u fx initial fall 02/14/2023 no complaints today Duration: today f/u TECHNIQUE: 3 radiographic view(s) of the left wrist . COMPARISON: 06/10/2023. FINDINGS: Redemonstration of distal radius fracture with stable alignment. Bridging callus formation is more solid compared to prior exam some interval remodeling. There is bridging trabeculation at the ulnar aspect of the fracture. There is persistent fracture lucency at the radial aspect. IMPRESSION: Maturing fracture healing. THIS IS AN ELECTRONICALLY VERIFIED FINAL REPORT 09/06/2023 3:35 PM - Electronically signed by Ronny Griffin M.D., Iam.O. Ronny Griffin M.D., Iam.O. MW: NUNO Report ID: [id number] Reading Location: [id number] Social History Type Status Start Date End Date Code Code Syst em Smoking History Current every day smoker [id number] SNOMED CT Sex Male Medications Medication Start Date End Date Route Frequency Dose Code Code System Medication Instructions Home Meds Albuterol Sulfate 0.09MG/1Actuation Inhalation Suspension 11/17/2023 Unknown INHALATION NEEDED EVERY 4 HOURS 1 unit(s) 7039090 RxNorm 1 EACH INHALATION NEEDED EVERY 4 HOURS Atorvastatin Calcium 10MG Oral Tablet 11/17/2023 Unknown ORAL ONCE A DAY 10 MILLIGRA MS 896479 RxNorm TAKE 10 MILLIGRAMS ORAL ONCE A DAY Levothyroxine 25MCG Oral Tablet 11/17/2023 Unknown ORAL ONCE A DAY 25 MCG 901600 RxNorm TAKE 25 MCG ORAL ONCE A DAY Lisinopril 2.5MG Oral Tablet 11/17/2023 Unknown ORAL ONCE A DAY 2.5 MILLIGRA MS 919976 RxNorm TAKE 2.5 MILLIGRAMS ORAL ONCE A DAY Lybalvi 10 MG-10 MG Oral Tablet 11/17/2023 Unknown ORAL ONCE A DAY 1 unit(s) 9744529 RxNorm TAKE 1 EACH ORAL ONCE A DAY Naproxen 500MG Oral Tablet 11/17/2023 Unknown ORAL NEEDED EVERY 12 HOURS 500 MILLIGRA MS 293721 RxNorm TAKE 500 MILLIGRAMS ORAL NEEDED EVERY 12 HOURS NovoLOG Mix 70/30 FlexPen 70U-30U/1ML Subcutaneous Suspension 11/17/2023 Unknown SUBCUTANEOU S TWICE A DAY 1 unit(s) 660501 RxNorm INJECT INTO 1 EACH SUBCUTANEOU S TWICE A DAY OXcarbazepine 300MG Oral Tablet 11/17/2023 Unknown ORAL TWICE A DAY 300 MILLIGRA MS 731811 RxNorm TAKE 300 MILLIGRAMS ORAL TWICE A DAY Pantoprazole Sodium 40 MG Oral Tablet, Delayed Release 11/17/2023 Unknown ORAL ONCE A DAY 40 MG 772624 RxNorm TAKE 40 MG ORAL ONCE A DAY Sertraline 100MG Oral Tablet 11/17/2023 Unknown ORAL ONCE A DAY 200 MILLIGRA MS 222559 RxNorm TAKE 200 MILLIGRAMS ORAL ONCE A DAY TobraDex ST 0.05%-0.3% Ophthalmic Suspension 11/17/2023 Unknown OPHTHALMIC FOUR TIMES A DAY 1 unit(s) 1722892 RxNorm 1 EACH OPHTHALMIC FOUR TIMES A DAY Tylenol 325MG Oral Tablet 11/17/2023 Unknown ORAL NEEDED EVERY 4 HOURS 650 MILLIGRA MS 324863 RxNorm TAKE 650 MILLIGRAMS ORAL NEEDED EVERY [...] Co de Code System PCN (penicillin) Active 1613992 SNOMED- CT AZITHROMYCIN Active 58778 RxNorm Plan of Treatment MRI Brain WO Contrast (98321) 4 Encounters Encounter Diagnosis Start Date Code Code Sys tem Unspecified fracture of the lower end of left radius, subsequent encounter for closed fracture with routine healing 09/06/2023 [facility]-CT Personal Care Team Section Performer Name Performer Role Active Date Inactive JULIO CESAR Witt PCP - Primary care physician 2023-02-04 Imaging Narrative Notes
== END 2025-03-07 08:49 | disposition home or self-care (01) ==
LOC: ANHAUDIO 08:49
PROVIDERS: PCP Family Medicine; Visit Provider Family Medicine
DX: H90.3 Sensorineural hearing loss, bilateral (principal)
CPT/HCPCS: 92557; 92567